=== PATIENT | female | born 1945 | race Caucasian/White ===

== ENCOUNTER 2017-03-02 12:04 | Inpatient (IN) | payer MEDICARE, MEDICAID ==
[2017-03-02] MEDS ORDERED: Ondansetron INJ* 2 MG/ML VIAL IV PRN (15:18)
[2017-03-02] MEDS ORDERED: Dextrose 50% Syringe 50 ML* 25 GM/50 ML SYRINGE IV PUSH PRN (15:18)
[2017-03-02] MEDS ORDERED: Albuterol 2.5 MG/3 ML NEB.SOL* (0.083%) INH PRN (15:30)
[2017-03-02 16:25] LABS: Hematocrit 37 % (35-47); Hemoglobin 11.9 g/dl (12.0-16.0); Mean Corpuscular HGB Conc 32 g/dl (31-36); Mean Corpuscular Hemoglobin 30 pg (27-31); Mean Corpuscular Volume 94 fL (80-97); Mean Platelet Volume 9 um3 (7.4-10.4); Red Blood Count 3.91 10^6/ul (4.0-5.4); Red Cell Distribution Width 15 % (10.5-15); White Blood Count 11.1 10^3/ul (3.5-10.8)
[2017-03-02] MEDS ORDERED: Vancomycin(*) 1,500 MG in NS 0.9% 250 ML* 250 ML IVPB ONE (16:30)
[2017-03-02 16:49] LABS: Albumin 3.5 g/dL (3.2-5.2); C Reactive Protein 7.37 mg/L (< 5.00); Calcium 9.7 mg/dL (8.6-10.3); EGFR Non-African American 43.6 (>60); Globulin 2.9 g/dL (2-4); Potassium 4.9 mmol/L (3.5-5.0); Total Bilirubin 0.3 mg/dL (0.2-1.0); Total Protein 6.4 g/dL (6.4-8.9)
[2017-03-02 17:36] LABS: Erythrocyte Sed Rate 67 mm/Hr (0-40)
[2017-03-02] MEDS: Insulin LISPRO* 1 UNITS UNIT SUBCUT SCH (17:55)
[2017-03-02] MEDS: NS 0.9% 1000 ML* 1,000 ML IV SCH (17:55)
[2017-03-02] MEDS: Metoprolol Tartrate TAB* 25 MG PO SCH (20:07)
[2017-03-02] MEDS: Flecainide TAB* 100 MG PO SCH (20:08)
--- NOTE | 2017-03-02 22:37 | CONS ---
CONSULTATION REPORT: DATE OF CONSULTATION: 03/02/17 HISTORY OF PRESENT ILLNESS: Lillie is a 71-year-old woman who had previous internal fixation of a right bimalleolar ankle fracture. She is densely neuropathic with diabetes and multiple other medical issues including COPD. She has been minimally ambulatory, but had failure of the fixation early on with some changes radiographically, which suggested Charcot. Since then she has been in a [employer] walker for protection of this diabetic neuroarthropathic joint. Over the winter, she had inability to seek any medical care. It is not totally clear why this is true, but the son who is her primary caregiver states that there was too much snow at the house, but anyway a week ago, she showed up at my office with quite significant cellulitis globally at the right foot and ankle and swelling, which was moderate to severe. We gave her some Keflex for a week and recommended Edward wraps and elevation and she returns today with much worse cellulitis and skin cracking and edematous changes and almost pachydermal changes. Her radiographs today show continued Charcot changes at the ankle with loosening of the hardware. The patient may possibly have an infection of the hardware deep, but I would treat her in the short term with IV antibiotics for this quite significant cellulitis. For this reason, I have recommended that she go to the hospital where she will be admitted to the hospitalist service to be followed by Orthopedics as a consultation. MEDICATIONS: Include: 1. Pravastatin 40 mg at night. 2. Glimepiride 4 mg per day. 3. Prednisone 20 mg a day. 4. Potassium chloride 20 mEq every day. 5. Metoprolol 25 mg twice a day. 6. Furosemide 20 mg twice a day. 7. Flecainide acetate 50 mg twice a day. 8. Tramadol for pain. 9. Benadryl 25 mg every 6 hours as needed. 10. Loratadine 10 mg per day. 11. Nebulizer. ALLERGIES: She claims allergies to BACITRACIN and IODINE. REVIEW OF SYSTEMS: She has had significant COPD and dense diabetic neuropathy. PHYSICAL EXAM: Lillie, on examination has partial dentition. The oropharynx is clear. Neck is supple. Her chest exam actually shows clear lung sounds without wheezing or rales noted. Her cardiac exam also shows a regular rate, not particularly prominent heart sounds, but no extra sounds noted. Her abdomen is distended, soft, nontender. Her extremity exam shows her to have a massively edematous foot and ankle with severe cellulitis up to the mid calf. She is having cracking now of the skin at the edema and some early pachydermal changes. Her foot is warm, but I am not able to palpate pulses because of the severe edema. The skin is intact except for some cracking along the [place] and some between the toes where she has fungal changes. DIAGNOSTIC STUDIES/LAB DATA: Her radiographs today AP, lateral and oblique view shows dissolution of the bone architecture at the ankle with loosening of medial and lateral hardware consistent with Charcot changes possibly with some osteomyelitis. IMPRESSION: The patient will be admitted to the hospitalist service at [facility] for IV antibiotics and elevation, ID consult and Orthopedics to follow. [id number]/CPS #: [id number] JOSE ANGEL
--- NOTE | 2017-03-02 23:27 | HP ---
HISTORY AND PHYSICAL: DATE OF ADMISSION: 03/02/17 PRIMARY CARE PROVIDER: Dr. Yuliya Pike. ATTENDING PHYSICIAN WHILE IN THE HOSPITAL: Dr. Sulema Ortega *(report dictated by Ck Zuleta NP). CHIEF COMPLAINT: 1. Right lower extremity wound. 2. Right lower extremity erythema. HISTORY OF PRESENT ILLNESS: Ms. Melton is a 71-year-old female patient who underwent a right ankle ORIF in December of last year secondary to a fracture. She comes in today. She states that about a week ago, she noticed that she was having swelling to that leg initially. She was wearing a walking boot. She started noticing that the boot was rubbing and this developed into an ulceration and there was erythema as well. She went and saw Dr. Rivas who had done the original surgery. He was concerned for a possible cellulitis on the right foot and placed the patient on antibiotics. She has been on antibiotics in the form of Keflex for about a week, and despite this, she has not had any improvement of her symptoms. She went back there for a followup and he felt that she would need IV antibiotics, so she was sent to the hospital. The patient says that, to her knowledge, she has not noticed any purulent discharge. She did note that she had what appeared to be blisters around that leg, which have subsequently opened up and she did not notice what they were draining when they did open up. She says that now they are just draining a clear discharge. She denied having any fevers or chills. She says to her knowledge the redness really has not changed that much. She feels the leg is definitely more swollen, and at times, she does have some pain to the lower extremity. She denied having any joint pain or any ankle pain. She states that she does have erythema to the left leg, but this is more of a chronic in nature. She denied any chills, fevers. Says she has been taking her medications as prescribed and has not made any changes with the exception of the Keflex. Because of the failure of outpatient antibiotics, she was sent to the hospital. PAST MEDICAL HISTORY: Significant for: 1. Diabetes. 2. CHF. 3. Giant cell arteritis. 4. History of DVT and PE, status post IVC filter as she is allergic to BLOOD THINNERS. 5. AFib. 6. CKD. 7. COPD. 8. Hemorrhagic shock in the past from BLOOD THINNERS. 9. Hyperlipidemia. 10. TIA. REVIEW OF SYSTEMS: There is no documented fever. She denied any significant weight change. There was no double vision. There is no ear discharge. She denies having any rhinorrhea. No sore throat. No thyroid enlargement. She denies having any worsening shortness of breath. No chest pain. No orthopnea. No nocturnal dyspnea. There is no abdominal pain. There was no nausea. There was no vomiting. There was no dysuria. There was no frequency. She denied having any abdominal discomfort or any diarrhea or vomiting. She denies any loss of consciousness. Again, there are skin ulcerations per my HPI. Review of 14 systems completed, all others negative. PHYSICAL EXAMINATION GENERAL: At this time, Ms. Melton is a 71-year-old female patient. She is sitting in the hospital bed. Does not appear to be in any acute distress. VITAL SIGNS: Blood pressure 131/79 with a pulse of 99, respirations 20, O2 sat 93%, and temperature 98.7. HEENT: Head is atraumatic and normocephalic. Eyes: EOMs intact. Sclerae anicteric. Throat: Oral mucosa appears to be moist. No oropharyngeal erythema. NECK: Supple. LUNGS: Clear throughout. There are no wheezes, rales, or rhonchi. HEART: Sounds S1, S2. Irregularly irregular rate. No murmurs, rubs, or gallops. ABDOMEN: Soft, it was flat, nontender. Bowel sounds present. EXTREMITIES: Pulses were 2+ throughout. She had +3 pitting edema bilaterally. She had 5/5 strength. NEUROLOGIC: She is awake, alert, oriented x3. Tongue midline. City [employer] are equal. No gross focal deficits. SKIN: Intact. She has erythema noted from the right ankle extending up to the mid . Just below the knee, there are ulcerations around the right lower extremity that appears to have a serous-type discharge. She does have erythema noted to the left lower extremity as well. This appears to be venous stasis probably. There is no warmth here and no obvious open areas at the site. Otherwise, the skin was intact. Old medical records were reviewed. ASSESSMENT AND PLAN: Ms. Melton is a 71-year-old female patient coming to the hospital today after worsening erythema and ulcerations to the right lower extremity, failing outpatient therapy for cellulitis. She will be admitted under inpatient status for: 1. Cellulitis: At this point, she is probably going to require a couple of days of IV antibiotics. I do not have any labs back yet as they are all pending , but I do think we need to get a CBC, CMP, ESR, CRP, procalcitonin, and blood cultures. I will put her on vancomycin. We will give her 1 L of fluids for now. Hold tonight's dose of Lasix and continue to follow. 2. Diabetes: She will be on a lispro sliding scale. 3. History of congestive heart failure: Does not appear to be in any acute failure. She actually appears to be a little hypovolemic. I will give her a liter of fluid slowly and we will restart her Lasix in the morning. 4. Giant cell arteritis: Continue prednisone. 5. History of DVT and PE: She has an IVC filter in place. I did order SCDs. 6. Atrial fibrillation: She appears to be rate controlled. Heart rate is around 99. We will continue her flecainide and her medications as prescribed and we will follow. 7. Chronic kidney disease: Again, her creatinine is now pending. We will follow this up. 8. Chronic obstructive pulmonary disease: I have ordered p.r.n. albuterol. 9. Hyperlipidemia: Continue meds as prescribed. 10. Transient ischemic attack: Continue secondary prevention. 11. Code status: She wished to be a full code. 12. Fluids, electrolytes, and nutrition: She will be on a consistent carbohydrate diet. TIME SPENT: Time spent on the admission was approximately 60 minutes; greater than half the time was spent [id number] with the patient obtaining my history and physical, other half the time spent going over the plan of care with the patient and implementing plan of care. I did discuss the plan of care with my attending, Dr. Otrega; she is in agreement. CK ZULETA NP CC: Dr. Yuliya Pike* [id number]/CPS #: [id number] [facility]ENTERBeck
[2017-03-03] MEDS: NS 0.9% 1000 ML* 1,000 ML IV SCH ×2 (05:22→18:50)
[2017-03-03 06:25] LABS: Hematocrit 34 % (35-47); Mean Corpuscular HGB Conc 33 g/dl (31-36); Mean Corpuscular Hemoglobin 31 pg (27-31); Mean Corpuscular Volume 94 fL (80-97); Mean Platelet Volume 8 um3 (7.4-10.4); Red Cell Distribution Width 15 % (10.5-15); White Blood Count 12.6 10^3/ul (3.5-10.8)
[2017-03-03 06:45] LABS: BUN/Creatinine Ratio 24.8 (8-20); EGFR African American 63.8 (>60); EGFR Non-African American 49.6 (>60); Potassium 4.1 mmol/L (3.5-5.0)
[2017-03-03] MEDS: Atorvastatin* 10 MG TAB PO SCH (08:12)
[2017-03-03] MEDS: Metoprolol Tartrate TAB* 25 MG PO SCH ×2 (08:13→21:12)
[2017-03-03] MEDS: Flecainide TAB* 100 MG PO SCH ×2 (08:13→21:11)
[2017-03-03] MEDS: Furosemide TAB* 20 MG PO SCH ×2 (08:13→21:12)
[2017-03-03] MEDS: Potassium Chlor TAB* 20 MEQ TAB.ER PO SCH (08:13)
[2017-03-03] MEDS: Omeprazole CAP* 20 MG PO SCH (08:13)
[2017-03-03] MEDS: Aspirin Low Dose CHEW TAB* 81 MG PO SCH (08:13)
[2017-03-03] MEDS: predniSONE TAB* 20 MG PO SCH (08:13)
[2017-03-03] MEDS: Insulin LISPRO* 1 UNITS UNIT SUBCUT SCH ×3 (08:16→17:45)
[2017-03-03] MEDS ORDERED: Vancomycin per Pharmacy* NOTE FOLLOW UP PRN (08:55)
[2017-03-03] MEDS: Vancomycin(*) 1,000 MG in NS 0.9% 250 ML* 250 ML IVPB SCH ×2 (09:20→21:12)
--- NOTE | 2017-03-03 15:38 | PN ---
Subjective Date of Service: 03/03/17 Interval History: This is a 71 yo female with a h/o NIDDM, CHF, giant cell arteritis, h/o DVT/PE, afib, CKD, COPD, HLD and prior TIA who was referred to the hospital by orthopedic surgeon, Dr Rivas, with concern for cellulitis. Patient had a bimalleolar fracture 12/2015 with ORIF by Rob. Fixation initially failed and patient has been placed in a boot to protect the joint from further deterioration. Patient has been lost to follow up over the winter months and has spent most of that time in a wheelchair, both morning and night. She was seen by Dr Rivas last week where he noted ulcerations had formed from friction from her boot with an associated cellulitis. She was started on Keflex at that time, with no improvement noted after 1 week, she was referred to the hospital for admission. She was empirically started on vancomycin. Patient reports improved pain in the RLE. She believes the edema and erythema have improved slightly. She denies any additional complaints. Patient's family which includes her son and [id number], with who she lives, are extremely anxious about her hospital admission. Objective Active Medications: Acetaminophen (Tylenol Tab*) 650 mg PO Q4H PRN PRN Reason: FEVER/PAIN Albuterol (Ventolin 2.5 Mg/3 Ml Neb.Maranda*) 2.5 mg INH Q2H PRN PRN Reason: SOB/WHEEZING Aspirin (Aspirin Low Dose Tab*) 81 mg PO DAILY [facility] Last Admin: 03/03/17 08:13 Dose: 81 mg Atorvastatin Calcium (Lipitor*) 10 mg PO DAILY [facility] PRN Reason: Protocol Last Admin: 03/03/17 08:12 Dose: 10 mg Dextrose (D50w Syringe 50 Ml*) 12.5 gm IV PUSH .FOR FS < 60 - SS PRN PRN Reason: FS < 60 Flecainide Acetate (Tambocor Tab*) 50 mg PO BID [facility] Last Admin: 03/03/17 08:13 Dose: 50 mg Furosemide (Lasix Tab*) 20 mg PO BID [facility] Last Admin: 03/03/17 08:13 Dose: 20 mg Sodium Chloride (Ns 0.9% 1000 Ml*) 1,000 mls @ 100 mls/hr IV PER RATE [facility] Last Admin: 03/03/17 05:22 Dose: 100 mls/hr Vancomycin HCl 1,000 mg/ (Sodium Chloride) 250 mls @ 166.667 mls/hr IVPB Q12H [facility] Last Admin: 03/03/17 09:20 Dose: 166.667 mls/hr Insulin Human Lispro (Humalog*) 0 units SUBCUT AC [facility] PRN Reason: Protocol Last Admin: 03/03/17 13:23 Dose: 9 units Metoprolol Tartrate (Lopressor Tab*) 25 mg PO BID [facility] Last Admin: 03/03/17 08:13 Dose: 25 mg Omeprazole (Prilosec Cap*) 20 mg PO DAILY [facility] Last Admin: 03/03/17 08:13 Dose: 20 mg Ondansetron HCl (Zofran Inj*) 4 mg IV Q6H PRN PRN Reason: NAUSEA Pharmacy Consult (Vancomycin Per Pharmacy*) 1 note FOLLOW UP . PRN PRN Reason: PER PROTOCOL Pharmacy Profile Note (Vancomycin Trough Check) 1 note FOLLOW UP ONCE ONE Stop: 03/04/17 08:31 Potassium Chloride (Klor Con Er Tab*) 20 meq PO DAILY [facility] Last Admin: 03/03/17 08:13 Dose: 20 meq Prednisone (Deltasone Tab*) 20 mg PO DAILY [facility] Last Admin: 03/03/17 08:13 Dose: 20 mg Vital Signs: Temp Pulse Resp BP Pulse Ox 98.5 F 82 16 105/61 92 03/03/17 11:27 03/03/17 11:27 03/03/17 11:27 03/03/17 11:27 03/03/17 13:41 Appearance: Well appearing, elderly, obese female in NAD. Accompanied by family Neck: NL Appearance and Movements; NL JVP Respiratory: Symmetrical Chest Expansion and Respiratory Effort, Clear to Auscultation Cardiovascular: NL Sounds; No Murmurs; No JVD, RRR Abdominal: NL Sounds; No Tenderness; No Distention Extremities: - - bilateral LE edema, L>R Skin: - - shallow ulcerations x 3 over RLE with faint surrounding erythema and scant drainage Neurological: Alert and Oriented x 3 Result Diagrams: 03/03/17 05:54 03/03/17 05:54 Assess/Plan/Problems-Billing Assessment: This is a 71 yo female with a h/o NIDDM, CHF, giant cell arteritis, h/o DVT/PE, afib, CKD, COPD, HLD and prior TIA who was referred to the hospital by orthopedic surgeon, Dr Rivas, with concern for cellulitis. - Patient Problems (1) Cellulitis Comment: RLE over prior surgical site Blood cultures are pending Cont vancomycin empirically (2) S/P ORIF (open reduction internal fixation) fracture Comment: Dr Rivas 12/2015 XRs reveal hardware failure and Charcot joint changes Concern for possible osteoarthritis with degenerative changes seen on XR with overlying cellulitis, discussed imaging modality of choice, Dr Rivas suggested a non-contrasted CT of the RLE which has been ordered (3) CKD (chronic kidney disease), stage III Comment: Stable, near baseline (4) HLD (hyperlipidemia) (5) H/O deep venous thrombosis Comment: Patient reports allergy to "blood thinners", without additional information (6) Atrial fibrillation Comment: Remains in NSR with flecanide. Not a candidate for anticoagulation (7) Congestive heart failure Comment: Without acute exacerbation (8) Giant cell arteritis Comment: Dependent on 20mg daily She was not stress dosed at admission, no associated sepsis or other hemodynamic instability (9) Type 2 diabetes mellitus Comment: HgbA1c 7.9% Cont SS Humalog Oral agents held Status and Disposition: Patient requires continued hospital stay. Pending CT to help to determine whether osteomyelitis is present which will effect disposition
--- NOTE | 2017-03-03 21:36 | RAD ---
Indication: Question hardware failure versus osteomyelitis at the RIGHT ankle. 3 open wound at the RIGHT ankle. Cellulitis. Comparison: March 02, 2017 radiographs and March 23, 2016 CT. Technique: Noncontrast CT from the mid diaphyses of the tibia and fibula through the ankle and midfoot. Multiplanar reformation. Report: Extensive soft tissue swelling most marked over the medial and lateral aspects of the ankle. Soft tissue ulcer at the medial margin with gas containing tract visualized extending up to 0.7 cm deep to the skin surface. Contiguous soft tissue density tract extends from this level to the ankle joint 3.7 cm deep to the skin surface. While assessment is limited without IV contrast no compelling loculated soft tissue plane abscess collection is visualized. Osseous detail is limited due to artifact from the distal tibia and fibular cortical plates and multiple fixation screws including screws traversing the talocrural joint and distal syndesmosis. There is evidence for mild backing out of one of the screws at the distal tibia and one of the screws at the distal fibula at the level of the ankle mortise reference axial images 102-103 of 153. No definitive focal osteolysis evident. Diffuse disuse osteoporosis. No fracture evident. Diffuse skeletal muscle atrophy. IMPRESSION: 1. Soft tissue edema and medial soft tissue ulcer without compelling evidence for a loculated abscess collection however assessment is limited without IV contrast due to artifact from the internal fixation hardware. 2. No compelling CT evidence for osteomyelitis. If there is persistent clinical concern a three-phase bone scan would be suggested. 3. There is evidence for mild backing out of one of the screws at the distal tibia and one of the screws at the distal fibula at the level of the ankle mortise. This is a new finding compared with the March 23, 2016 exam.
--- NOTE | 2017-03-03 23:03 | CONS ---
PROGRESS NOTE/CONSULTATION: DATE OF CONSULT: 03/03/17 HISTORY OF PRESENT ILLNESS: Ms. Melton has been in the hospital now for almost 24 hours. She has been finally able to elevate her leg. It appears that she has been, for a month prior to admission, staying in a wheelchair at night, so in other words, the leg dependent 100% of the time. Her edema has improved slightly, although she is still significantly erythematous below mid calf. She is on the IV antibiotics currently, and I am interested to see how her cellulitis and edema respond over the next [address] scan will be ordered of the right ankle hardware. This is probably the best study to determine whether there is any significant osteolysis of the bone. I do not think the patient is going to be a great candidate to go home since the home situation is quite desperate in terms of her being able to elevate the leg. For now, we will continue IV antibiotics with a.m. elevation. [id number]/[facility] #: [id number] JOSE ANGEL
[2017-03-04 05:45] LABS: Vancomycin Trough 9.6 mcg/mL
[2017-03-04 07:27] LABS: Hematocrit 36 % (35-47); Hemoglobin 11.6 g/dl (12.0-16.0); Mean Corpuscular HGB Conc 32 g/dl (31-36); Mean Platelet Volume 9 um3 (7.4-10.4); Red Blood Count 3.84 10^6/ul (4.0-5.4); White Blood Count 12.7 10^3/ul (3.5-10.8)
[2017-03-04 07:42] LABS: Mean Corpuscular Hemoglobin 30 pg (27-31); Mean Corpuscular Volume 94 fL (80-97); Red Cell Distribution Width 15 % (10.5-15)
[2017-03-04] MEDS ORDERED: Vancomycin Trough Check NOTE FOLLOW UP ONE (08:30)
[2017-03-04] MEDS: Insulin LISPRO* 1 UNITS UNIT SUBCUT SCH ×3 (08:41→17:46)
[2017-03-04 09:10] LABS: BUN/Creatinine Ratio 24.7 (8-20); C Reactive Protein 6.75 mg/L (< 5.00); Calcium 9.2 mg/dL (8.6-10.3); EGFR Non-African American 66.1 (>60); Potassium 4.1 mmol/L (3.5-5.0)
[2017-03-04] MEDS: Furosemide TAB* 20 MG PO SCH ×2 (09:31→20:14)
[2017-03-04] MEDS: Omeprazole CAP* 20 MG PO SCH (09:31)
[2017-03-04] MEDS: predniSONE TAB* 20 MG PO SCH (09:31)
[2017-03-04] MEDS: Vancomycin(*) 1,250 MG in NS 0.9% 250 ML* 250 ML IVPB SCH ×2 (09:31→20:22)
[2017-03-04] MEDS: Potassium Chlor TAB* 20 MEQ TAB.ER PO SCH (09:31)
[2017-03-04] MEDS: Metoprolol Tartrate TAB* 25 MG PO SCH ×2 (09:31→20:14)
[2017-03-04] MEDS: Flecainide TAB* 100 MG PO SCH ×2 (09:32→20:14)
[2017-03-04] MEDS: Aspirin Low Dose CHEW TAB* 81 MG PO SCH (09:32)
[2017-03-04] MEDS: Atorvastatin* 10 MG TAB PO SCH (09:32)
--- NOTE | 2017-03-04 10:02 | PN ---
Progress Note - Progress Note SOAP: Subjective: patient OOB to chair with minimal pain Objective: Vital Signs Temp Pulse Resp BP Pulse Ox 97.2 F 111 18 121/65 93 03/04/17 06:34 03/04/17 08:47 03/04/17 08:47 03/04/17 06:34 03/04/17 08:47 Laboratory Last Values WBC 12.7 10^3/ul (3.5-10.8) H 03/04/17 04:55 RBC 3.84 10^6/ul (4.0-5.4) L 03/04/17 04:55 Hgb 11.6 g/dl (12.0-16.0) L 03/04/17 04:55 Hct 36 % (35-47) 03/04/17 04:55 MCV 94 fL (80-97) 03/04/17 04:55 MCH 30 pg (27-31) 03/04/17 04:55 MCHC 32 g/dl (31-36) 03/04/17 04:55 RDW 15 % (10.5-15) 03/04/17 04:55 Plt Count 222 10^3/ul (150-450) 03/04/17 04:55 MPV 9 um3 (7.4-10.4) 03/04/17 04:55 Neut % (Auto) 58.5 % (38-83) 03/04/17 04:55 Lymph % (Auto) 30.7 % (25-47) 03/04/17 04:55 Benzie % (Auto) 9.2 % (1-9) H 03/04/17 04:55 Eos % (Auto) 1.1 % (0-6) 03/04/17 04:55 Baso % (Auto) 0.5 % (0-2) 03/04/17 04:55 Absolute Neuts (auto) 7.4 10^3/ul (1.5-7.7) 03/04/17 04:55 Absolute Lymphs (auto) 3.9 10^3/ul (1.0-4.8) 03/04/17 04:55 Absolute Monos (auto) 1.2 10^3/ul (0-0.8) H 03/04/17 04:55 Absolute Eos (auto) 0.1 10^3/ul (0-0.6) 03/04/17 04:55 Absolute Basos (auto) 0.1 10^3/ul (0-0.2) 03/04/17 04:55 Absolute Nucleated RBC 0.01 10^3/ul 03/04/17 04:55 Nucleated RBC % 0 03/04/17 04:55 ESR 67 mm/Hr (0-40) H 03/02/17 16:11 Sodium 142 mmol/L (133-145) 03/04/17 04:56 Potassium 4.1 mmol/L (3.5-5.0) 03/04/17 04:56 Chloride 96 mmol/L (101-111) L 03/04/17 04:56 Carbon Dioxide 38 mmol/L (22-32) H 03/04/17 04:56 Anion Gap 8 mmol/L (2-11) 03/04/17 04:56 BUN 21 mg/dL (6-24) 03/04/17 04:56 Creatinine 0.85 mg/dL (0.51-0.95) 03/04/17 04:56 Est GFR ( Amer) 85.0 (>60) 03/04/17 04:56 Est GFR (Non-Af Amer) 66.1 (>60) 03/04/17 04:56 BUN/Creatinine Ratio 24.7 (8-20) H 03/04/17 04:56 Glucose 111 mg/dL (70-100) H 03/04/17 04:56 POC Glucose (mg/dL) 85 mg/dL (74-106) 03/04/17 08:04 Hemoglobin A1c 7.9 % (Less than 6.0) H 03/03/17 05:54 Calcium 9.2 mg/dL (8.6-10.3) 03/04/17 04:56 Total Bilirubin 0.30 mg/dL (0.2-1.0) 03/02/17 16:11 AST 17 U/L (13-39) 03/02/17 16:11 ALT 14 U/L (7-52) 03/02/17 16:11 Alkaline Phosphatase 72 U/L (34-104) 03/02/17 16:11 C-Reactive Protein 6.75 mg/L (< 5.00) H 04/07/17 04:56 Total Protein 6.4 g/dL (6.4-8.9) 03/02/17 16:11 Albumin 3.5 g/dL (3.2-5.2) 03/02/17 16:11 Globulin 2.9 g/dL (2-4) 03/02/17 16:11 Albumin/Globulin Ratio 1.2 (1-3) 03/02/17 16:11 Procalcitonin < 0.1 ng/mL (<0.6) 03/02/17 16:11 Vancomycin Trough 9.6 mcg/mL 03/04/17 04:56 PE: able to ankle dorsiflex/plantar flex and moves toes well, intact sensation, 2+ DP pulses, pitting edema right ankle and foot with erythema Assessment: 71 yo with infection of hardware from ORIF right ankle Plan: 1) Continue IV Abx through the weekend 2) Elevation daily 3) ID following
--- NOTE | 2017-03-04 10:38 | PN ---
Subjective Date of Service: 03/04/17 Interval History: Patient offers no new complaints this am. She believe her leg looks better. Afebrile overnight. Objective Active Medications: Acetaminophen (Tylenol Tab*) 650 mg PO Q4H PRN PRN Reason: FEVER/PAIN Albuterol (Ventolin 2.5 Mg/3 Ml Neb.Maranda*) 2.5 mg INH Q2H PRN PRN Reason: SOB/WHEEZING Aspirin (Aspirin Low Dose Tab*) 81 mg PO DAILY [facility] Last Admin: 03/04/17 09:32 Dose: 81 mg Atorvastatin Calcium (Lipitor*) 10 mg PO DAILY [facility] PRN Reason: Protocol Last Admin: 03/04/17 09:32 Dose: 10 mg Dextrose (D50w Syringe 50 Ml*) 12.5 gm IV PUSH .FOR FS < 60 - SS PRN PRN Reason: FS < 60 Flecainide Acetate (Tambocor Tab*) 50 mg PO BID [facility] Last Admin: 03/04/17 09:32 Dose: 50 mg Furosemide (Lasix Tab*) 20 mg PO BID [facility] Last Admin: 03/04/17 09:31 Dose: 20 mg Sodium Chloride (Ns 0.9% 1000 Ml*) 1,000 mls @ 100 mls/hr IV PER RATE [facility] Last Admin: 03/03/17 18:50 Dose: 100 mls/hr Vancomycin HCl 1,250 mg/ (Sodium Chloride) 250 mls @ 166.667 mls/hr IVPB Q12HR [facility] Last Admin: 03/04/17 09:31 Dose: 166.667 mls/hr Insulin Human Lispro (Humalog*) 0 units SUBCUT AC [facility] PRN Reason: Protocol Last Admin: 03/04/17 08:41 Dose: Not Given Metoprolol Tartrate (Lopressor Tab*) 25 mg PO BID [facility] Last Admin: 03/04/17 09:31 Dose: 25 mg Omeprazole (Prilosec Cap*) 20 mg PO DAILY [facility] Last Admin: 03/04/17 09:31 Dose: 20 mg Ondansetron HCl (Zofran Inj*) 4 mg IV Q6H PRN PRN Reason: NAUSEA Pharmacy Consult (Vancomycin Per Pharmacy*) 1 note FOLLOW UP . PRN PRN Reason: PER PROTOCOL Pharmacy Profile Note (Vancomycin Trough Check) 1 note FOLLOW UP ONCE ONE Stop: 03/06/17 08:31 Potassium Chloride (Klor Con Er Tab*) 20 meq PO DAILY [facility] Last Admin: 03/04/17 09:31 Dose: 20 meq Prednisone (Deltasone Tab*) 20 mg PO DAILY [facility] Last Admin: 03/04/17 09:31 Dose: 20 mg Vital Signs: Temp Pulse Resp BP Pulse Ox 97.2 F 111 18 121/65 93 03/04/17 06:34 03/04/17 08:47 03/04/17 08:47 03/04/17 06:34 03/04/17 08:47 Oxygen Devices in Use Now: Nasal Cannula Appearance: Well appearing elderly, obese female in NAD Neck: NL Appearance and Movements; NL JVP Respiratory: Symmetrical Chest Expansion and Respiratory Effort, Clear to Auscultation Cardiovascular: NL Sounds; No Murmurs; No JVD, RRR Extremities: - - improved LE edema Skin: - - improved erythema over RLE Neurological: Alert and Oriented x 3 Result Diagrams: 03/04/17 04:55 03/04/17 04:56 Microbiology and Other Data: Microbiology 03/02/17 16:11 Aerobic Blood Culture - Preliminary Blood Venous No Growth Day 1 Anaerobic Blood Culture - Preliminary No Growth Day 1 03/02/17 16:18 Aerobic Blood Culture - Preliminary Blood Venous No Growth Day 1 Anaerobic Blood Culture - Preliminary No Growth Day 1 Diagnostic Imaging: CT RLE - no evidence of osteo or deep abscess, hardware loosening at distal tibia Assess/Plan/Problems-Billing Assessment: This is a 71 yo female with a h/o NIDDM, CHF, giant cell arteritis, h/o DVT/PE, afib, CKD, COPD, HLD and prior TIA who was referred to the hospital by orthopedic surgeon, Dr Rivas, with concern for cellulitis. - Patient Problems (1) Cellulitis Comment: RLE over prior surgical site with 3 shallow ulcerations Wound care consult completed who agrees with dry dressings and compression with elevation of LE Blood cultures are negative at 24 hours Cont vancomycin empirically Note clinical improvement CT is not suggestive of osteo or deep abscess, will request input from ID on antibiotic management (2) S/P ORIF (open reduction internal fixation) fracture Comment: Dr Rivas 12/2015 XRs reveal hardware failure and Charcot joint changes Original concern for possible osteomyelitis with degenerative changes seen on XR with overlying cellulitis CT of the region is not suggestive of osteomyelitis Dr Rivas would like to remove her hardware at some point in the future, but would like her to be treated with a full course of antibiotics prior to surgery (3) CKD (chronic kidney disease), stage III Comment: Stable, near baseline (4) HLD (hyperlipidemia) (5) H/O deep venous thrombosis Comment: Patient reports allergy to "blood thinners", without additional information (6) Atrial fibrillation Comment: Remains in NSR with flecanide. Not a candidate for anticoagulation (7) Congestive heart failure Comment: Without acute exacerbation (8) Giant cell arteritis Comment: Dependent on 20mg daily She was not stress dosed at admission, no associated sepsis or other hemodynamic instability (9) Type 2 diabetes mellitus Comment: HgbA1c 7.9% Cont SS Humalog Oral agents held Status and Disposition: Patient requires continued hospital stay. Dr Rivas would like to delay any surgical intervention for several weeks. Will discuss antibiotics with ID and possibility of ADRIAN with family. Requested social work involvement to help with getting a recliner at home.
--- NOTE | 2017-03-04 16:58 | CONS ---
CONSULTATION REPORT: DATE OF CONSULT: 03/04/17 REQUESTING PROVIDER: DONNELL Liu CONSULTING SERVICE: Infectious Disease. REASON FOR CONSULT: Right leg cellulitis, wound infection. IMPRESSION: 1. Right lower extremity cellulitis and upper lower leg wound where a brace had worn into the skin. I suspect that is the focus of infection. Agree that gram- positives are most likely organisms including resistant staphylococcus. She does have fixation hardware in the distal tibia and fibula, CT showed hardware loosening, with a medial ankle ulceration draining serous fluid, that could also be a focus of the infection. Interestingly, the erythema is not directly associated with that ulceration. 2. Status post right tibia and fibula open reduction internal fixation in December 2015. 3. History of right knee arthroplasty, asymptomatic. 4. Giant cell arteritis, on prednisone. 5. Diabetes. RECOMMENDATION: Agree with vancomycin goal trough 10 to 15. We will follow the leg, if it is not improving, we may change the coverage of it. I do think a long-term oral antibiotic therapy is reasonable given the prosthetic knee and ankle fixation hardware and we will discuss with Dr. Rivas. The options include removal of hardware or retaining hardware if unable to be removed, and long-term oral suppressive antibiotic therapy. HISTORY OF PRESENT ILLNESS: This is a 71-year-old woman with a history of right ankle fixation and knee arthroplasty admitted with right leg cellulitis. She was wearing an ankle foot brace that wore into the skin in the lower leg and created an ulceration. She was seen by Dr. Rivas, who started her on Keflex. Apparently, it was not improving very much where there was erythema distal to that ulceration though not quite down to the ankle. When he saw her most recently, recommended that she come into the ER which she did on the . White blood cell count was 11 on admission, CRP was 7. She was started on vancomycin and blood cultures sent are negative 24 hours. She has had no fevers here, she has had no chills, sweats, or anorexia. She had a CT of the right leg that showed soft tissue edema, medial soft tissue ulcer without evidence for abscess. No osteomyelitis by CT. She denies any leg pain. She thinks the redness is fading a little bit since she has been here, is keeping her leg elevated more than she was at home. PAST MEDICAL HISTORY: 1. History of venous thromboembolic disease and Darline filter placement. 2. Diabetes. 3. Congestive heart failure. 4. Giant cell arteritis. 5. Atrial fibrillation. 6. Chronic kidney disease. 7. COPD, on supplemental oxygen. 8. Hyperlipidemia. 9. Transient ischemic attack. MEDICATIONS: 1. Tylenol. 2. Aspirin. 3. Lipitor. 4. Flecainide. 5. Furosemide. 6. Metoprolol. 7. Vancomycin 1250 mg every 12 hours. 8. Prednisone. ALLERGIES: BACITRACIN caused an unknown reaction, ARGATROBAN. FAMILY HISTORY: No recurrent infections. SOCIAL HISTORY: She lives in [place] with her son and a variety of other people. She grew up in [place], [place]. She is retired, nonsmoker. REVIEW OF SYSTEMS: Full review of systems was negative except as noted above. PHYSICAL EXAM: Vital Signs: Temperature 36, heart rate 100, respiratory rate 18, blood pressure 93% on 3 L. General: She is awake, not in distress. Neurologic: Alert and oriented x3. Decreased sensation to light touch in the feet bilaterally. HEENT: There is no conjunctival hemorrhage. Oropharynx without lesions. Neck is supple without nuchal rigidity. Lymph Nodes: There is no cervical, supraclavicular, inguinal, axillary, or epitrochlear lymphadenopathy. Heart: Regular rate and rhythm without murmurs, rubs, or gallops. Lungs are clear to auscultation bilaterally. Abdomen: Soft, nontender, and nondistended. Skin: There is no rash or splinter hemorrhages. Musculoskeletal: There is no spine tenderness to palpation. Right knee, there is no effusion. Bilateral legs, there is lymphedema and in the right lower leg , there is a band of blanching erythema with a more proximal superficial ulceration and just proximal to the right medial malleolus, there is an indentation of the skin with some serous fluid leaking out. LABORATORY DATA: CRP 6. White blood cell count 12, hemoglobin 11, platelets 222. Creatinine is 0.8. Please see impressions and recommendations as outlined above. Thanks for asking me to see Ms. Melton in consultation. [id number]/CPS #: [id number] MTDD
[2017-03-05] MEDS: Insulin LISPRO* 1 UNITS UNIT SUBCUT SCH ×3 (08:07→17:40)
[2017-03-05] MEDS: Metoprolol Tartrate TAB* 25 MG PO SCH ×2 (09:00→20:38)
[2017-03-05] MEDS: Potassium Chlor TAB* 20 MEQ TAB.ER PO SCH (09:00)
[2017-03-05] MEDS: predniSONE TAB* 20 MG PO SCH (09:01)
[2017-03-05] MEDS: Vancomycin(*) 1,250 MG in NS 0.9% 250 ML* 250 ML IVPB SCH ×2 (09:01→20:34)
[2017-03-05] MEDS: Omeprazole CAP* 20 MG PO SCH (09:01)
[2017-03-05] MEDS: Flecainide TAB* 100 MG PO SCH ×2 (09:01→20:39)
[2017-03-05] MEDS: Furosemide TAB* 20 MG PO SCH ×2 (09:01→20:38)
[2017-03-05] MEDS: Atorvastatin* 10 MG TAB PO SCH (09:01)
[2017-03-05] MEDS: Aspirin Low Dose CHEW TAB* 81 MG PO SCH (09:01)
--- NOTE | 2017-03-05 10:17 | PN ---
Subjective Date of Service: 03/05/17 Interval History: Patient offers no new complaints today. She is keeping her legs elevated in a recliner the majority of the day. She believes her leg is improving. Denies cough or SOB. No abdominal pain nausea or vomiting. Objective Active Medications: Acetaminophen (Tylenol Tab*) 650 mg PO Q4H PRN PRN Reason: FEVER/PAIN Albuterol (Ventolin 2.5 Mg/3 Ml Neb.Maranda*) 2.5 mg INH Q2H PRN PRN Reason: SOB/WHEEZING Aspirin (Aspirin Low Dose Tab*) 81 mg PO DAILY [facility] Last Admin: 03/05/17 09:01 Dose: 81 mg Atorvastatin Calcium (Lipitor*) 10 mg PO DAILY [facility] PRN Reason: Protocol Last Admin: 03/05/17 09:01 Dose: 10 mg Dextrose (D50w Syringe 50 Ml*) 12.5 gm IV PUSH .FOR FS < 60 - SS PRN PRN Reason: FS < 60 Flecainide Acetate (Tambocor Tab*) 50 mg PO BID [facility] Last Admin: 03/05/17 09:01 Dose: 50 mg Furosemide (Lasix Tab*) 20 mg PO BID [facility] Last Admin: 03/05/17 09:01 Dose: 20 mg Sodium Chloride (Ns 0.9% 1000 Ml*) 1,000 mls @ 100 mls/hr IV PER RATE [facility] Last Admin: 03/03/17 18:50 Dose: 100 mls/hr Vancomycin HCl 1,250 mg/ (Sodium Chloride) 250 mls @ 166.667 mls/hr IVPB Q12HR [facility] Last Admin: 03/05/17 09:01 Dose: 166.667 mls/hr Insulin Human Lispro (Humalog*) 0 units SUBCUT AC [facility] PRN Reason: Protocol Last Admin: 03/05/17 08:07 Dose: Not Given Metoprolol Tartrate (Lopressor Tab*) 25 mg PO BID [facility] Last Admin: 03/05/17 09:00 Dose: 25 mg Omeprazole (Prilosec Cap*) 20 mg PO DAILY [facility] Last Admin: 03/05/17 09:01 Dose: 20 mg Ondansetron HCl (Zofran Inj*) 4 mg IV Q6H PRN PRN Reason: NAUSEA Pharmacy Consult (Vancomycin Per Pharmacy*) 1 note FOLLOW UP . PRN PRN Reason: PER PROTOCOL Pharmacy Profile Note (Vancomycin Trough Check) 1 note FOLLOW UP ONCE ONE Stop: 03/06/17 08:31 Potassium Chloride (Klor Con Er Tab*) 20 meq PO DAILY [facility] Last Admin: 03/05/17 09:00 Dose: 20 meq Prednisone (Deltasone Tab*) 20 mg PO DAILY [facility] Last Admin: 03/05/17 09:01 Dose: 20 mg Vital Signs: Temp Pulse Resp BP Pulse Ox 98.3 F 89 16 123/70 100 03/05/17 07:21 03/05/17 07:21 03/05/17 07:21 03/05/17 07:21 03/05/17 07:21 Oxygen Devices in Use Now: Nasal Cannula Appearance: Well appearing, in NAD Respiratory: Symmetrical Chest Expansion and Respiratory Effort, Clear to Auscultation Cardiovascular: NL Sounds; No Murmurs; No JVD, RRR Abdominal: NL Sounds; No Tenderness; No Distention Extremities: - - edema is improving in both legs Skin: - - resolving erythema of the RLE with healing, shallow ulcerations of the proximal lower leg Neurological: Alert and Oriented x 3 Result Diagrams: 03/04/17 04:55 03/04/17 04:56 Microbiology and Other Data: Microbiology 03/02/17 16:11 Aerobic Blood Culture - Preliminary Blood Venous No Growth Day 1 Anaerobic Blood Culture - Preliminary No Growth Day 1 03/02/17 16:18 Aerobic Blood Culture - Preliminary Blood Venous No Growth Day 1 Anaerobic Blood Culture - Preliminary No Growth Day 1 Diagnostic Imaging: CT RLE - no evidence of osteo or deep abscess, hardware loosening at distal tibia Assess/Plan/Problems-Billing Assessment: This is a 71 yo female with a h/o NIDDM, CHF, giant cell arteritis, h/o DVT/PE, afib, CKD, COPD, HLD and prior TIA who was referred to the hospital by orthopedic surgeon, Dr Rivas, with concern for cellulitis. - Patient Problems (1) Cellulitis Comment: RLE over prior surgical site with 3 shallow ulcerations Wound care consult completed who agrees with dry dressings and compression with elevation of LE Blood cultures are negative at 48 hours Cont vancomycin empirically Note clinical improvement CT is not suggestive of osteo or deep abscess Appreciate ID input who suggests continued antibiotic therapy with recommendation for hardware removal or alf suppression therapy if the hardware were to be retained (2) S/P ORIF (open reduction internal fixation) fracture Comment: Dr Rivas 12/2015 XRs reveal hardware failure and Charcot joint changes Original concern for possible osteomyelitis with degenerative changes seen on XR with overlying cellulitis CT of the region is not suggestive of osteomyelitis Dr Rivas would like to remove her hardware at some point in the future, but would like her to be treated with a full course of antibiotics prior to surgery (3) CKD (chronic kidney disease), stage III Comment: Stable, near baseline (4) HLD (hyperlipidemia) (5) H/O deep venous thrombosis Comment: Patient reports allergy to "blood thinners", without additional information (6) Atrial fibrillation Comment: Remains in NSR with flecanide. Not a candidate for anticoagulation (7) Congestive heart failure Comment: Without acute exacerbation (8) Giant cell arteritis Comment: Dependent on 20mg daily She was not stress dosed at admission, no associated sepsis or other hemodynamic instability (9) Type 2 diabetes mellitus Comment: HgbA1c 7.9% Cont SS Humalog Oral agents held Status and Disposition: Plan to continue IV abx at this time. Dr Rivas would like to delay any surgical intervention for several weeks. Social work is involved to help with getting a recliner at home. Will discuss discharge home v. ADRIAN with family again later today.
--- NOTE | 2017-03-05 10:47 | PN ---
Progress Note - Progress Note SOAP: Subjective: [71 y/o female with h/o hardware R ankle, R TKA, with cellulitis R ankle. Patient reports no complaints, VSS overnight. No labs this AM, no vanco per ID. ] Objective: General- Well appearing, AO, NAD, sitting comfortably MSK- b/l ankles dressed with loose CONSTANTIN wrap, R with kerlex. Dressing removed, 2 small ulceration with minimal bloody drainage, one with small scab over anterior, medial vallejo. No purulent drainage noted, no odor. B/L LE edematous , diffuse mild erythema throughout both LE's. ] Laboratory Results - last 24 hr 03/04/17 03/04/17 03/05/17 12:08 16:41 07:59 POC Glucose (mg/dL) 222 H 236 H 114 H Vital Signs Temp 98.3 F 03/05/17 07:21 Pulse 89 03/05/17 07:21 Resp 16 03/05/17 07:21 BP 123/70 03/05/17 07:21 Pulse Ox 100 03/05/17 08:00 Intake & Output 03/04/17 03/05/17 03/05/17 18:59 06:59 18:59 Intake Total 2063 062 1967 Output Total 4200 2000 600 Balance -2265 -1660 400 Weight 236 lb 8 oz Intake: IV Fluids 200 NS (0.9%) 200 IVPB 285 ABX - VANCOMYCIN 285 Oral 5030 239 0608 Output: Urine 4200 2000 600 Other: Estimated Void Medium Date of Last Bowel 03/04/2017 Movement # Bowel Movements 0 # Voids 0 Assessment: [71 y/o female with h/o hardware R ankle, R TKA, with cellulitis R ankle] Plan: - CT- no osteo seen - Continue ABX per ID - Continue dressings as written- increase elevation of legs to higher than heart during hospital stay. - Continue to monitor wounds- no signs of viv infection seen - Discussed with Dr. Rivas- Continue to monitor, if no D/C over weekend NPO on Tuesday night ] Active Medications Generic Name Dose Route Start Last Admin Trade Name Freq PRN Reason Stop Dose Admin Acetaminophen 650 mg 03/02/17 15:18 Tylenol Tab* PO Q4H PRN FEVER/PAIN Albuterol 2.5 mg 03/02/17 15:30 Ventolin 2.5 Mg/3 Ml Neb.Maranda* INH Q2H PRN SOB/WHEEZING Aspirin 81 mg 03/03/17 09:00 03/05/17 09:01 Aspirin Low Dose Tab* PO 81 mg DAILY [facility] Administration Atorvastatin Calcium 10 mg 03/03/17 09:00 03/05/17 09:01 Lipitor* PO 10 mg DAILY [facility] Administration Protocol Dextrose 12.5 gm 03/02/17 15:18 D50w Syringe 50 Ml* IV PUSH .FOR FS < 60 - SS PRN FS < 60 Flecainide Acetate 50 mg 03/02/17 21:00 03/05/17 09:01 Tambocor Tab* PO 50 mg BID [facility] Administration Furosemide 20 mg 03/03/17 09:00 03/05/17 09:01 Lasix Tab* PO 20 mg BID [facility] Administration Sodium Chloride 1,000 mls @ 100 mls/hr 03/02/17 15:30 03/03/17 18:50 Ns 0.9% 1000 Ml* IV 100 mls/hr PER RATE [facility] Administration Vancomycin HCl 1,250 mg/ 250 mls @ 166.667 mls/hr 03/04/17 09:00 03/05/17 09: 01 Sodium Chloride IVPB 166.667 mls/hr Q12HR [facility] Administration Insulin Human Lispro 0 units 03/02/17 16:30 03/05/17 08:07 Humalog* SUBCUT Not Given [facility] Protocol Metoprolol Tartrate 25 mg 03/02/17 21:00 03/05/17 09:00 Lopressor Tab* PO 25 mg BID [facility] Administration Omeprazole 20 mg 03/03/17 09:00 03/05/17 09:01 Prilosec Cap* PO 20 mg DAILY [facility] Administration Ondansetron HCl 4 mg 03/02/17 15:18 Zofran Inj* IV Q6H PRN NAUSEA Pharmacy Consult 1 note 03/03/17 08:55 Vancomycin Per Pharmacy* FOLLOW UP . PRN PER PROTOCOL Pharmacy Profile Note 1 note 03/06/17 08:30 Vancomycin Trough Check FOLLOW UP 03/06/17 08:31 ONCE ONE Potassium Chloride 20 meq 03/03/17 09:00 03/05/17 09:00 Klor Con Er Tab* PO 20 meq DAILY [facility] Administration Prednisone 20 mg 03/03/17 09:00 03/05/17 09:01 Deltasone Tab* PO 20 mg DAILY [facility] Administration
[2017-03-05] MEDS: Acetaminophen TAB* 325 MG PO PRN (20:41)
[2017-03-06] MEDS: Atorvastatin* 10 MG TAB PO SCH (07:47)
[2017-03-06] MEDS: Potassium Chlor TAB* 20 MEQ TAB.ER PO SCH (07:47)
[2017-03-06] MEDS: predniSONE TAB* 20 MG PO SCH (07:47)
[2017-03-06] MEDS: Aspirin Low Dose CHEW TAB* 81 MG PO SCH (07:47)
[2017-03-06] MEDS: Furosemide TAB* 20 MG PO SCH ×2 (07:47→20:25)
[2017-03-06] MEDS: Metoprolol Tartrate TAB* 25 MG PO SCH ×2 (07:47→20:25)
[2017-03-06] MEDS: Acetaminophen TAB* 325 MG PO PRN (07:47)
[2017-03-06] MEDS: Omeprazole CAP* 20 MG PO SCH (07:47)
[2017-03-06] MEDS: Flecainide TAB* 100 MG PO SCH ×2 (07:49→20:24)
[2017-03-06] MEDS: Insulin LISPRO* 1 UNITS UNIT SUBCUT SCH ×3 (07:49→17:19)
[2017-03-06] MEDS ORDERED: Vancomycin Trough Check NOTE FOLLOW UP ONE ×2 (08:30→20:30)
[2017-03-06] MEDS: Vancomycin(*) 1,250 MG in NS 0.9% 250 ML* 250 ML IVPB SCH ×2 (08:33→21:45)
[2017-03-06 09:09] LABS: BUN/Creatinine Ratio 26.7 (8-20); Calcium 9.3 mg/dL (8.6-10.3); EGFR African American 83.9 (>60); EGFR Non-African American 65.2 (>60); Potassium 3.6 mmol/L (3.5-5.0)
--- NOTE | 2017-03-06 11:17 | PN ---
Progress Note - Progress Note SOAP: Subjective: [71 y/o female with h/o hardware R ankle, R TKA, with cellulitis R ankle. Patient c/o dizziness with standing, denies pain, feels legs less red and swollen. ] Objective: [General- Well appearing, NAD, sitting comfortably MSK- dressings removed. two ulcerations, superficial with scabs over anterior vallejo, small crack opening under great toe. no odor, drainage seen. Edema decreased from prior examination, still moderate drainage. Skin mild erythema . ] Vital Signs Temp 98.2 F 03/06/17 07:26 Pulse 91 03/06/17 07:45 Resp 18 03/06/17 07:45 BP 129/55 03/06/17 07:26 Pulse Ox 97 03/06/17 07:46 Intake & Output 03/05/17 03/06/17 03/06/17 18:59 06:59 18:59 Intake Total 1730 0 240 Output Total 1000 2100 Balance 730 -2100 240 Weight 236 lb 12.8 oz Intake: IVPB 250 ABX - VANCOMYCIN 250 Oral 1480 0 240 Output: Urine 1000 2100 Other: Estimated Void Medium # Bowel Movements 0 # Voids 1 Laboratory Results - last 24 hr 03/05/17 03/05/17 03/06/17 11:27 16:37 07:47 Sodium Potassium Chloride Carbon Dioxide Anion Gap BUN Creatinine Est GFR ( Amer) Est GFR (Non-Af Amer) BUN/Creatinine Ratio Glucose POC Glucose (mg/dL) 228 H 195 H 117 H Calcium Vancomycin Trough 03/06/17 03/06/17 08:43 08:43 Sodium 141 Potassium 3.6 Chloride 92 L Carbon Dioxide 44 H* Anion Gap 5 BUN 23 Creatinine 0.86 Est GFR ( Amer) 83.9 Est GFR (Non-Af Amer) 65.2 BUN/Creatinine Ratio 26.7 H Glucose 125 H POC Glucose (mg/dL) Calcium 9.3 Vancomycin Trough 23.8 Assessment: [71 y/o female with h/o hardware R ankle, R TKA, with cellulitis R ankle] Plan:- - D/C to home tomorrow with PO ABX - Follow up with Dr Rivas within 4-6 weeks for re-evaluation, discuss possible hardware removal - Silversulfadine ointment added daily with dressing changes. - Continue hospitalist care.
--- NOTE | 2017-03-06 12:07 | PN ---
Subjective Date of Service: 03/06/17 Interval History: Patient reports that she is feeling well. Denies any acute complaints. Objective Active Medications: Acetaminophen (Tylenol Tab*) 650 mg PO Q4H PRN PRN Reason: FEVER/PAIN Last Admin: 03/06/17 07:47 Dose: 650 mg Albuterol (Ventolin 2.5 Mg/3 Ml Neb.Maranda*) 2.5 mg INH Q2H PRN PRN Reason: SOB/WHEEZING Aspirin (Aspirin Low Dose Tab*) 81 mg PO DAILY [facility] Last Admin: 03/06/17 07:47 Dose: 81 mg Atorvastatin Calcium (Lipitor*) 10 mg PO DAILY [facility] PRN Reason: Protocol Last Admin: 03/06/17 07:47 Dose: 10 mg Dextrose (D50w Syringe 50 Ml*) 12.5 gm IV PUSH .FOR FS < 60 - SS PRN PRN Reason: FS < 60 Flecainide Acetate (Tambocor Tab*) 50 mg PO BID [facility] Last Admin: 03/06/17 07:49 Dose: 50 mg Furosemide (Lasix Tab*) 20 mg PO BID [facility] Last Admin: 03/06/17 07:47 Dose: 20 mg Sodium Chloride (Ns 0.9% 1000 Ml*) 1,000 mls @ 100 mls/hr IV PER RATE [facility] Last Admin: 03/03/17 18:50 Dose: 100 mls/hr Vancomycin HCl 1,250 mg/ (Sodium Chloride) 250 mls @ 166.667 mls/hr IVPB Q12HR [facility] Last Admin: 03/06/17 08:33 Dose: 166.667 mls/hr Insulin Human Lispro (Humalog*) 0 units SUBCUT AC [facility] PRN Reason: Protocol Last Admin: 03/06/17 07:49 Dose: Not Given Metoprolol Tartrate (Lopressor Tab*) 25 mg PO BID [facility] Last Admin: 03/06/17 07:47 Dose: 25 mg Omeprazole (Prilosec Cap*) 20 mg PO DAILY [facility] Last Admin: 03/06/17 07:47 Dose: 20 mg Ondansetron HCl (Zofran Inj*) 4 mg IV Q6H PRN PRN Reason: NAUSEA Pharmacy Consult (Vancomycin Per Pharmacy*) 1 note FOLLOW UP . PRN PRN Reason: PER PROTOCOL Pharmacy Profile Note (Vancomycin Trough Check) 1 note FOLLOW UP 2030 ONE Stop: 03/06/17 20:31 Potassium Chloride (Klor Con Er Tab*) 20 meq PO DAILY [facility] Last Admin: 03/06/17 07:47 Dose: 20 meq Prednisone (Deltasone Tab*) 20 mg PO DAILY [facility] Last Admin: 03/06/17 07:47 Dose: 20 mg Silver Sulfadiazine (Silvadine 1%*) 1 applic TOPICAL DAILY [facility] Vital Signs: Temp Pulse Resp BP Pulse Ox 98.2 F 91 18 129/55 97 03/06/17 07:26 03/06/17 07:45 03/06/17 07:45 03/06/17 07:26 03/06/17 07:46 Oxygen Devices in Use Now: Nasal Cannula Appearance: Well appearing, in NAD Respiratory: Symmetrical Chest Expansion and Respiratory Effort, Clear to Auscultation Cardiovascular: NL Sounds; No Murmurs; No JVD, RRR Abdominal: NL Sounds; No Tenderness; No Distention Extremities: - - improving edema bilaterally, 1-2+ LLE, 2-3+RLE Skin: - - faint erythema RLE, resolving, some hyperemia/hyperpigmentation LLE, healing, shallow ulcerations over RLE Neurological: Alert and Oriented x 3 Result Diagrams: 03/04/17 04:55 03/06/17 08:43 Microbiology and Other Data: Microbiology 03/02/17 16:11 Aerobic Blood Culture - Preliminary Blood Venous No Growth Day 1 Anaerobic Blood Culture - Preliminary No Growth Day 1 03/02/17 16:18 Aerobic Blood Culture - Preliminary Blood Venous No Growth Day 1 Anaerobic Blood Culture - Preliminary No Growth Day 1 Diagnostic Imaging: CT RLE - no evidence of osteo or deep abscess, hardware loosening at distal tibia Assess/Plan/Problems-Billing Assessment: This is a 71 yo female with a h/o NIDDM, CHF, giant cell arteritis, h/o DVT/PE, afib, CKD, COPD, HLD and prior TIA who was referred to the hospital by orthopedic surgeon, Dr Rivas, with concern for cellulitis. - Patient Problems (1) Cellulitis Comment: RLE over prior surgical site with 3 shallow ulcerations Wound care consult completed who agrees with dry dressings and compression with elevation of LE Blood cultures are negative Cont vancomycin empirically Noted clinical improvement CT is not suggestive of osteo or deep abscess Appreciate ID input who suggests continued antibiotic therapy with recommendation for hardware removal or intermediate teacher suppression therapy if the hardware were to be retained (2) Respiratory acidosis Comment: Appears clinically compensated ABG pending Noted elevated serum bicarb, likely in response to high pCO2 Patient reports diagnosis of RADHA, but refuses to use CPAP/BiPAP Recommend decreasing supp O2 to increase hypoxic respiratory drive (3) S/P ORIF (open reduction internal fixation) fracture Comment: Dr Rivas 12/2015 XRs reveal hardware failure and Charcot joint changes Original concern for possible osteomyelitis with degenerative changes seen on XR with overlying cellulitis CT of the region is not suggestive of osteomyelitis Dr Rivas would like to remove her hardware at some point in the future, but would like her to be treated with a full course of antibiotics prior to surgery (4) CKD (chronic kidney disease), stage III Comment: Stable, near baseline (5) HLD (hyperlipidemia) (6) H/O deep venous thrombosis Comment: Patient reports allergy to "blood thinners", without additional information (7) Atrial fibrillation Comment: Remains in NSR with flecanide. Not a candidate for anticoagulation (8) Congestive heart failure Comment: Without acute exacerbation (9) Giant cell arteritis Comment: Dependent on 20mg daily She was not stress dosed at admission, no associated sepsis or other hemodynamic instability (10) RADHA (obstructive sleep apnea) Comment: Patient refuses use of CPAP/BiPAP (11) Type 2 diabetes mellitus Comment: HgbA1c 7.9% Cont SS Humalog Oral agents held Status and Disposition: Plan to continue IV abx at this time. Dr Rivas would like to delay any surgical intervention for several weeks. Social work is involved to help with getting a recliner at home. Plan for dc home with po abx tomorrow.
[2017-03-06 12:24] LABS: FIO2 2
[2017-03-06 12:28] LABS: PCO2 Arterial 67 mmHg (35-45)
[2017-03-06] MEDS: Silver Sulfadiazine 1%* 20 GM TOPICAL SCH (13:17)
[2017-03-07] MEDS ORDERED: Vancomycin(*) 1,000 MG in NS 0.9% 250 ML* 250 ML IVPB SCH (04:00)
[2017-03-07 08:17] LABS: BUN/Creatinine Ratio 26.8 (8-20); C Reactive Protein 6.44 mg/L (< 5.00); Calcium 9.5 mg/dL (8.6-10.3); EGFR Non-African American 56.8 (>60); Potassium 3.8 mmol/L (3.5-5.0)
[2017-03-07] MEDS: Insulin LISPRO* 1 UNITS UNIT SUBCUT SCH (08:31)
[2017-03-07 08:36] VITALS: BP 111/66
[2017-03-07] MEDS: predniSONE TAB* 20 MG PO SCH (09:01)
[2017-03-07] MEDS: Flecainide TAB* 100 MG PO SCH (09:01)
[2017-03-07] MEDS: Aspirin Low Dose CHEW TAB* 81 MG PO SCH (09:01)
[2017-03-07] MEDS: Omeprazole CAP* 20 MG PO SCH (09:02)
[2017-03-07] MEDS: Potassium Chlor TAB* 20 MEQ TAB.ER PO SCH (09:02)
[2017-03-07] MEDS: Atorvastatin* 10 MG TAB PO SCH (09:02)
[2017-03-07] MEDS: Furosemide TAB* 20 MG PO SCH (09:02)
[2017-03-07] MEDS: Metoprolol Tartrate TAB* 25 MG PO SCH (09:03)
[2017-03-07 09:50] LABS: Hematocrit 38 % (35-47); Hemoglobin 12.4 g/dl (12.0-16.0); Mean Corpuscular HGB Conc 32 g/dl (31-36); Mean Corpuscular Hemoglobin 30 pg (27-31); Mean Corpuscular Volume 94 fL (80-97); Red Blood Count 4.08 10^6/ul (4.0-5.4); Red Cell Distribution Width 15 % (10.5-15); White Blood Count 19.6 10^3/ul (3.5-10.8)
[2017-03-07 09:59] LABS: Comments Flag Yes
[2017-03-07 10:00] LABS: Add Diff/Slide Review? Slide Review Added
[2017-03-07] MEDS: Silver Sulfadiazine 1%* 20 GM TOPICAL SCH (10:34)
--- NOTE | 2017-03-08 06:56 | DS ---
DISCHARGE SUMMARY: DATE OF ADMISSION: 03/02/17 DATE OF DISCHARGE: 03/07/17 PRIMARY CARE PROVIDER: Dr. Yuliya Pike. ORTHOPEDIC SURGEON: Dr. Rivas. CONSULTING INFECTIOUS DISEASE SPECIALIST: Dr. Brewer. DISCHARGING PROVIDER: DONNELL Chavez SUPERVISING PHYSICIAN: Myah Thomason MD.* (DONNELL Chavez) PRIMARY DISCHARGE DIAGNOSIS: Cellulitis with history of ORIF in the affected leg. SECONDARY DISCHARGE DIAGNOSES: 1. Chronic hypoxic and hypercarbic respiratory failure likely secondary to obesity, hypoventilation syndrome fully compensated with a chronic respiratory acidosis requiring 2 L supplemental O2 continuously. 2. History of open reduction and internal fixation following bimalleolar right ankle fracture, December 2015, with Dr. Rivas. X-rays revealed hardware failure and Charcot joint changes with plan for hardware removal in upcoming weeks. 2. Chronic kidney disease - stage 2 to 3 without acute exacerbation. 3. Hyperlipidemia. 4. History of deep venous thrombosis with reported ALLERGY TO "BLOOD THINNERS" and an IVC filter in place. 5. Atrial fibrillation - remains in normal sinus rhythm. No anticoagulation. 6. Chronic diastolic heart failure without acute exacerbation. 7. Giant cell arteritis with 20 mg of prednisone daily. 8. Morbid obesity with a BMI of 40. 8. Obstructive sleep apnea and refuses to use CPAP or BiPAP. 9. Insulin dependent diabetes with hemoglobin A1c of 7.9%. DISCHARGE MEDICATIONS: 1. Aspirin 81 mg p.o. daily. 2. Doxycycline 100 mg p.o. b.i.d. 3. Flecainide 50 mg p.o. b.i.d. 4. Lasix 20 mg p.o. b.i.d. 5. Insulin Lispro. 6. Magnesium oxide 400 mg p.o. daily. 7. Metoprolol tartrate 25 mg p.o. b.i.d. 8. Nystatin powder 1000 units supply topically twice daily as needed. 9. Protonix 40 mg p.o. daily. 10. Potassium chloride 20 mEq daily. 11. Pravastatin 40 mg p.o. daily. 12. Metamucil 1 packet p.o. daily. 13. Silvadene cream applied topically around ulcers on right lower extremity daily. 14. Prednisone 20 mg p.o. daily. MEDICATION CHANGES: 1. Doxycycline to be taken until surgery. 2. Silvadene cream. HOSPITAL IMAGING: CT of the right lower extremity demonstrates soft tissue edema and medial soft tissue ulcer without evidence for an abscess. No compelling evidence for osteomyelitis. Some mild backing out of one of the screws at the distal tibia and one of the screws of the distal fibula at the level of the ankle mortis. HOSPITAL COURSE: This is a 71-year-old female with a history of atrial fibrillation for which she is not anticoagulated, as well as giant cell arteritis on chronic steroid therapy, chronic diastolic heart failure, insulin dependent diabetes, chronic kidney disease, hyperlipidemia and history of prior TIA, who was referred to the emergency department with concerns for worsening cellulitis by her orthopedic surgeon, Dr. Rivas. The patient had undergone ORIF for a bimalleolar ankle fracture in December 2015. She had some complications following surgery and has required chronic immobilization. The patient was unfortunately lost to followup over the winter months for various reasons and was seen again in Dr. Rivas's office a couple of weeks ago. It was apparent at that time that the patient had developed cellulitis in the right lower extremity which is the site of her prior fracture and ORIF with retained hardware. She was started on Keflex at that time and unfortunately there was no improvement in the erythema and she was subsequently referred to the emergency department for admission. The patient's mobility has declined significantly since surgery and she has been unable to get to her bed which is located upstairs for several months and had been spending nearly all of her time in an old wheelchair without the ability to elevate her lower extremities, so her legs were in a dependent position nearly 24 hours a day. Upon initial exam, she had multiple small and shallow ulcerations that appeared to be along the line of her boot that she was wearing with an associated cellulitis. The patient was subsequently started on vancomycin for empiric gram positive coverage. Her initial labs did not show leukocytosis and patient was afebrile. Blood cultures remained negative throughout her hospital stay. X-rays done in Dr. Rivas's office demonstrated degenerative changes concerning either for an associated osteomyelitis or more likely some Charcot joint changes. A CT scan was performed of the right lower extremity to further evaluate the concern for a possible osteomyelitis. There is no evidence of deep abscess or lytic changes associated with an osteomyelitis. The patient was continued on vancomycin during her hospital stay and requested consultation from infectious disease specialist, Dr. Brewer, who suggested continuing suppressive therapy with plan for hardware removal. Discussed discharge with the patient's family at length and encouraged considering subacute rehab. The patient and his family decided that they would prefer to go home rather than to rehab. Social work and the case manager have been involved in this case to help with getting appropriate equipment and nursing services at home. A new wheelchair has been ordered with a leg rest and also information given to get her a recliner as well. DISPOSITION: The patient is being discharged to home where she lives with her son and [id number]. She is to remain on doxycycline until surgery with planned hardware removal with Dr. Rivas sometime within the next couple of weeks. She will follow up with Dr. Rivas in his office. Instructions given to the family for dressing changes which needs to performed daily. The importance of leg elevation with continued compression with an Edward wrap was stressed. DONNELL CHAVEZ CC: Dr. Yuliya Pike; Dr. Rivas* [id number]/[facility] #: [id number] JOSE ANGEL
[2017-03-08] MEDS ORDERED: Vancomycin Trough Check NOTE FOLLOW UP ONE (15:30)
== END 2017-03-07 10:50 | disposition home or self-care (01) | DRG 603 ==
LOC: MED 13:06 → UNDODISIN 03-07 10:50
PROVIDERS: ADMIT Internal Medicine; ATTEND Internal Medicine
DX: L03.115 Cellulitis of right lower limb (principal); E87.4 Mixed disorder of acid-base balance; J96.11 Chronic respiratory failure with hypoxia; I50.32 Chronic diastolic (congestive) heart failure; J96.12 Chronic respiratory failure with hypercapnia; E66.2 Morbid (severe) obesity with alveolar hypoventilation; Z68.41 Body mass index [BMI] 40.0-44.9, adult; L97.919 Non-pressure chronic ulcer of unspecified part of right lower leg with unspecified severity; E11.22 Type 2 diabetes mellitus with diabetic chronic kidney disease; N18.3 Chronic kidney disease, stage 3 (moderate); E78.5 Hyperlipidemia, unspecified; I48.91 Unspecified atrial fibrillation; M31.6 Other giant cell arteritis; G47.33 Obstructive sleep apnea (adult) (pediatric); Z79.82 Long term (current) use of aspirin; Z79.4 Long term (current) use of insulin; Z79.52 Long term (current) use of systemic steroids; Z79.899 Other long term (current) drug therapy; Z86.73 Personal history of transient ischemic attack (TIA), and cerebral infarction without residual deficits; Z86.718 Personal history of other venous thrombosis and embolism; E11.610 Type 2 diabetes mellitus with diabetic neuropathic arthropathy; Z96.651 Presence of right artificial knee joint; Z88.8 Allergy status to other drugs, medicaments and biological substances
CPT/HCPCS: 36415; 36600; 80048; 80053; 80202; 82803; 83036; 84145; 85025; 85652; 86140; 87040; 94760; A9270-GY; J3370; J7512

== ENCOUNTER 2017-05-06 16:43 | Inpatient (IN) | payer MEDICARE, MEDICAID ==
[2017-05-06 18:48] LABS: Hematocrit 39 % (35-47); Hemoglobin 12.4 g/dl (12.0-16.0); Mean Corpuscular HGB Conc 32 g/dl (31-36); Mean Corpuscular Hemoglobin 30 pg (27-31); Mean Corpuscular Volume 95 fL (80-97); Mean Platelet Volume 8 um3 (7.4-10.4); Red Blood Count 4.06 10^6/ul (4.0-5.4); Red Cell Distribution Width 16 % (10.5-15)
[2017-05-06 18:51] LABS: Add Diff/Slide Review? Manual Diff Added; Comments Flag Yes
[2017-05-06] MEDS ORDERED: Ondansetron INJ* 2 MG/ML VIAL IV PRN (19:01)
[2017-05-06] MEDS ORDERED: Acetaminophen TAB* 325 MG PO PRN (19:01)
[2017-05-06] MEDS ORDERED: Dextrose 50% Syringe 50 ML* 25 GM/50 ML SYRINGE IV PUSH PRN (19:01)
[2017-05-06] MEDS ORDERED: cefTRIAXone VIAL(*) 1,000 MG in NS 0.9% 50 ML* 50 ML IVPB SCH (19:02)
[2017-05-06] MEDS ORDERED: Vancomycin(*) 1,500 MG in NS 0.9% 250 ML* 250 ML IVPB ONE (19:02)
[2017-05-06 19:03] LABS: ALT 15 U/L (7-52); Albumin 3.7 g/dL (3.2-5.2); Alkaline Phosphatase 76 U/L (34-104); BUN/Creatinine Ratio 26.1 (8-20); Blood Urea Nitrogen 23 mg/dL (6-24); C Reactive Protein 167.03 mg/L (< 5.00); Calcium 10.2 mg/dL (8.6-10.3); Chloride 86 mmol/L (101-111); Creatine Kinase 23 U/L (10-223); EGFR African American 81.7 (>60); EGFR Non-African American 63.5 (>60); Globulin 3.2 g/dL (2-4); Glucose 131 mg/dL (70-100); Sodium 138 mmol/L (133-145); Total Protein 6.9 g/dL (6.4-8.9)
[2017-05-06 19:05] LABS: Troponin I 0.02 ng/mL (<0.04)
[2017-05-06] MEDS ORDERED: Albuterol 2.5 MG/3 ML NEB.SOL* (0.083%) INH PRN (19:06)
[2017-05-06] MEDS ORDERED: Vancomycin per Pharmacy* NOTE FOLLOW UP PRN (19:11)
[2017-05-06 19:13] LABS: Add Path Review? YES; Immature Granulocytes 5 % (0-9); Myelocytes % 1 % (0-1); Neutrophil % 57 % (38-83); RBC Morphology Normal (Normal); Reactive Lymph % 2 % (0-6)
[2017-05-06] MEDS ORDERED: NS 0.9% 1000 ML* 1,000 ML IV SCH (19:15)
--- NOTE | 2017-05-06 19:20 | RAD ---
INDICATION: Cough and shortness of breath. COMPARISON: Comparison is made with a prior chest x-ray study from January 18, 2016. TECHNIQUE: AP and lateral views of the chest were obtained. FINDINGS: The heart is moderately enlarged and unchanged from the prior exam. There is a infiltrate present at the right lung base. No pleural effusion is seen. There are compression fractures of mid and lower dorsal vertebra which appear unchanged. IMPRESSION: RIGHT BASILAR INFILTRATE, RECOMMEND FOLLOW-UP CHEST X-RAYS TO RESOLUTION.
[2017-05-06 19:24] LABS: CO2 Carbon Dioxide 44 mmol/L (22-32)
[2017-05-06] MEDS: cefTRIAXone VIAL(*) 1,000 MG in NS 0.9% 50 ML* 50 ML IVPB SCH (20:43)
[2017-05-06] MEDS: Albuterol/Ipratropium NEB.SOL* Albuterol 2.5 MG/Ipratropium 0.5 MG 3 ML INH SCH (22:21)
--- NOTE | 2017-05-06 22:21 | HP ---
CC: Dr. Pike* HISTORY AND PHYSICAL: DATE OF ADMISSION: 05/06/17 PRIMARY CARE PHYSICIAN: Dr. Pike. ATTENDING PHYSICIAN WHILE IN THE HOSPITAL: Luis Carlos Hillman MD * (report dictated by Rachel Zuleta NP) CHIEF COMPLAINT: Cough. HISTORY OF PRESENT ILLNESS: Ms. Melton is a 71-year-old female patient with multiple medical problems. She has a history of diabetes, diastolic CHF, giant cell arteritis, DVT, PE, AFib, hemorrhagic shock secondary to blood thinners, hyperlipidemia, CKD, COPD, and history of TIA and she is also on chronic O2. She comes to the ER today stating over the last couple of weeks, she has had progressive worsening cough. She has been bringing up a greenish type sputum and has been more and more short of breath. She has been having chills off and on at home. She denied having any documented fever. She says that she cannot lie flat, but she says this has been a chronic issue for her. She has also noticed that she has had a skin rash and warmth noted to the left side of her neck. She also says that she has rash underneath bilateral breasts as well. She denied having any recent sick contacts. There has been no associated nausea , vomiting or diarrhea. She came into the ER today. There was concern when she was evaluated because it was noted that she was little hypotensive, she had an elevated white count. In addition to this, x-ray was concerning for possible pneumonia. Because of this, the hospitalist service was asked to evaluate for admission. PAST MEDICAL HISTORY: Significant for: 1. Diabetes. 2. Diastolic CHF. 3. Giant cell arteritis. 4. DVT. 5. PE. 6. AFib. 7. CKD. 8. COPD. 9. Hemorrhagic shock secondary to blood thinner. 10. Hyperlipidemia. 11. TIA. PAST SURGICAL HISTORY: 1. She has had an IVC filter. 2. She has had an ORIF of the right ankle. 3. Appendectomy. 4. Laparoscopic cholecystectomy. HOME MEDICATIONS: According to the list that she gave us include: 1. Prednisone 20 mg daily. 2. Benadryl 50 mg every 6 hours as needed. 3. Tizanidine 4 mg p.o. b.i.d. 4. Silvadene 1 application topically daily. 5. Metamucil 1 packet p.o. daily. 6. Pravachol 40 mg at bedtime. 7. Potassium 20 mEq p.o. daily. 8. Prilosec 20 mg p.o. b.i.d. 9. Nystatin topical 100,000 units externally b.i.d. to affected area. 10. Multivitamin 1 tablet daily. 11. Metoprolol 25 mg b.i.d. 12. Magnesium oxide 400 mg daily. 13. Claritin D 1 tablet daily. 14. Insulin sliding scale lispro a.c. and h.s. 15. Furosemide 40 mg daily. 16. Doxycycline 100 mg p.o. b.i.d. 17. B12 1000 mcg p.o. daily. 18. Vitamin D 1000 units p.o. daily. 19. Aspirin 81 mg p.o. daily. 20. Tylenol Extra Strength 500 mg every 6 hours as needed. ALLERGIES TO MEDICATIONS: Include EGGS, BACITRACIN, ARGATROBAN, LOVENOX, HEPARIN, BETADINE, BLOOD THINNERS. FAMILY HISTORY: Mother had a history of CVA and father had a history of [place]. SOCIAL HISTORY: She is a former smoker. She does not drink alcohol. Surrogate decision maker is her son. REVIEW OF SYSTEMS: There is no documented fever. She denied any significant weight change to me. There was no double vision. She denied having any ear discharge. No rhinorrhea, no sore throat. No thyroid enlargement. She denied having any chest pain. There is dyspnea on exertion. There was orthopnea. There was no nocturnal dyspnea. No abdominal pain, no nausea, no vomiting, no dysuria, no frequency, no seizure, no loss of consciousness. Review of 14 systems completed, all others negative. PHYSICAL EXAMINATION GENERAL: At this time, Ms. Melton is a 71-year-old female patient. She is sitting in the ER stretcher. She is chronically ill appearing. She does not appear to be in acute distress. VITAL SIGNS: Blood pressure is 93/56 with a pulse of 90, respirations 18, O2 saturation 95% on 2 L, temperature 97.4. HEENT: Head is atraumatic, normocephalic. Eyes: EOMs are intact. Sclerae were anicteric and not pale. Throat: Oral mucosa appears to be moist. No oropharyngeal edema. NECK: Supple. LUNGS: She had some rhonchi noted on the right lower lobe. She had wheezing there. She had equal diaphragmatic expansion. HEART: Sounds, S1, S2. Regular rate and rhythm. No murmurs, rubs or gallops. ABDOMEN: Soft, flat, nontender. EXTREMITIES: Pulses 2+ throughout, she had +4 pedal edema bilaterally. NEUROLOGIC: She is awake, alert, oriented x3. Tongue midline. House Piping Inspector were equal. No gross focal deficits. SKIN: Intact with the exception, she has got an area of erythema noted to the left side of her neck with scabbing noted into the center. I do not appreciate or palpate any fluctuation or induration. Overall, the skin is intact. LABORATORY AND DIAGNOSTIC DATA: Labs reveal WBC 15.0, RBC of 4.06, hemoglobin of 12.4, hematocrit 39, platelet count 190, PTT of 29.5. Sodium was 138, potassium pending, chloride 86, bicarb pending. BUN 23, creatinine of 0.88, glucose 131, lactic 1.1, calcium 10.2, total bili is 0.5, ALT 15, alk phos 76, troponin 0.02, CRP 167, BNP of 66. She had a chest x-ray obtained, I am waiting for official review. In my opinion, it does appear that she has a right lower lobe infiltrate. She did have an EKG obtained today, which shows a normal sinus rhythm, rate of 89, no ST elevation or T-wave inversions were noted. Old medical records were reviewed. ASSESSMENT AND PLAN: Ms. Melton is a 71-year-old female patient coming into the ER today with complaints of cough, shortness of breath and having chills. On evaluation, she appears to have pneumonia on x-ray. She will be admitted under inpatient status for: 1. Pneumonia: At this point, I will go ahead and put her on azithromycin and ceftriaxone. I have ordered flutter valve. She is on steroid 20 mg a day. I will continue this. If she drops her blood pressure, I would certainly put her on stress dosed steroids. I will go ahead and continue nebs and aggressive pulmonary toileting. 2. Cellulitis: She does appear to have cellulitis noted to the left side of her neck. At this point, I will put her on vancomycin. She does have a history of MRSA and we will continue to follow. 3. Diabetes: She will be on lispro sliding scale. 4. History of congestive heart failure: We will follow her hydration status closely and diurese as needed. I am going to give her some fluids tonight because her blood pressures were in the 90 systolic in the ED. 5. Giant cell arteritis. Continue her steroids. 6. History of deep venous thrombosis, pulmonary embolism: Continue her current medical regimen. 7. History of atrial fibrillation: She appears to be in sinus rhythm, rate controlled. 8. Chronic kidney disease: Creatinine is stable. 9. Chronic obstructive pulmonary disease: Continue with nebs, steroids, Dulera and pulmonary toileting. 10. Hyperlipidemia: Continue current therapy. 11. Transient ischemic attack: We will go ahead and continue with secondary prevention. 12. DVT prophylaxis vein. She will be placed on SCDs. 13. Code status. Full code. 14. Fluids, electrolyte, nutrition. She can have a heart healthy diet. TIME SPENT: Time spent on admission was approximately 60 minutes, greater than half the time [id number] with the patient obtaining history and physical, other half time spent going over the plan of care with the patient and implementing plan of care. I did discuss the plan of care with my attending, Dr. Hillman, he is in agreement. RACHEL ZULETA NP [id number]/[facility] #: [id number] JOSE ANGEL
[2017-05-06] MEDS: Mometasone/Formoter 200/5 MDI INH SCH (22:25)
[2017-05-06] MEDS ORDERED: NS 0.9% 250 ML* 0 ML ONE (23:00)
[2017-05-06] MEDS: Omeprazole CAP* 20 MG PO SCH (23:40)
[2017-05-06] MEDS: tiZANidine TAB* 2 MG PO SCH (23:40)
[2017-05-06] MEDS: Atorvastatin* 10 MG TAB PO SCH (23:40)
[2017-05-06] MEDS: Metoprolol Tartrate TAB* 25 MG PO SCH (23:41)
[2017-05-07] MEDS: Flecainide TAB* 100 MG PO SCH ×3 (00:41→22:07)
[2017-05-07] MEDS: Albuterol/Ipratropium NEB.SOL* Albuterol 2.5 MG/Ipratropium 0.5 MG 3 ML INH SCH ×4 (01:14→12:55)
[2017-05-07] MEDS: cefTRIAXone VIAL(*) 1,000 MG in NS 0.9% 50 ML* 50 ML IVPB SCH ×2 (01:42→20:35)
[2017-05-07] MEDS: Azithromycin IV(*) 500 MG in NS 0.9% 250 ML* 250 ML IVPB SCH ×3 (02:36→04:54)
[2017-05-07] MEDS: Mometasone/Formoter 200/5 MDI INH SCH ×2 (08:40→20:34)
[2017-05-07] MEDS: Omeprazole CAP* 20 MG PO SCH ×2 (09:04→22:08)
[2017-05-07] MEDS: Potassium Chlor TAB* 20 MEQ TAB.ER PO SCH (09:04)
[2017-05-07] MEDS: predniSONE TAB* 20 MG PO SCH (09:04)
[2017-05-07] MEDS: Metoprolol Tartrate TAB* 25 MG PO SCH ×2 (09:04→22:09)
[2017-05-07] MEDS: Aspirin Low Dose CHEW TAB* 81 MG PO SCH (09:04)
[2017-05-07] MEDS: Insulin LISPRO* 1 UNITS UNIT SUBCUT SCH ×4 (09:05→22:25)
[2017-05-07] MEDS: tiZANidine TAB* 2 MG PO SCH (09:05)
--- NOTE | 2017-05-07 10:41 | PN ---
Subjective Date of Service: 05/07/17 Interval History: . 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 IV antibiotics ongoing. Family History: Unchanged from Admission Social History: Unchanged from Admission Past Medical History: Unchanged from Admission Objective Active Medications: . Acetaminophen (Tylenol Tab*) 650 mg PO Q4H PRN PRN Reason: FEVER/PAIN Albuterol (Ventolin 2.5 Mg/3 Ml Neb.Maranda*) 2.5 mg INH Q2H PRN PRN Reason: SOB/WHEEZING Albuterol/Ipratropium (Duoneb (Albuterol 2.5 Mg/Ipratropium 0.5 Mg)) 1 neb INH [id number] AWAKE [facility] Last Admin: 05/07/17 08:40 Dose: 1 neb Aspirin (Aspirin Low Dose Tab*) 81 mg PO DAILY [facility] Last Admin: 05/07/17 09:04 Dose: 81 mg Atorvastatin Calcium (Lipitor*) 10 mg PO BEDTIME SANGEETHA PRN Reason: Protocol Last Admin: 05/06/17 23:40 Dose: 10 mg Dextrose (D50w Syringe 50 Ml*) 12.5 gm IV PUSH .FOR FS < 60 - SS PRN PRN Reason: FS < 60 Flecainide Acetate (Tambocor Tab*) 50 mg PO BID [facility] Last Admin: 05/07/17 09:08 Dose: 50 mg Sodium Chloride (Ns 0.9% 1000 Ml*) 1,000 mls @ 75 mls/hr IV PER RATE [facility] Last Admin: 05/06/17 23:29 Dose: 75 mls/hr Ceftriaxone Sodium 1,000 mg/ (Sodium Chloride) 50 mls @ 200 mls/hr IVPB 2030 [facility] Last Admin: 05/07/17 01:42 Dose: 200 mls/hr Vancomycin HCl 1,250 mg/ (Sodium Chloride) 250 mls @ 166.667 mls/hr IVPB Q12H [facility] Azithromycin 500 mg/ Sodium (Chloride) 250 mls @ 250 mls/hr IVPB 0230 [facility] Last Admin: 05/07/17 02:55 Dose: 250 mls/hr Insulin Human Lispro (Humalog*) 0 units SUBCUT AC SANGEETHA PRN Reason: Protocol Last Admin: 05/07/17 09:05 Dose: 3 units Metoprolol Tartrate (Lopressor Tab*) 25 mg PO BID [facility] Last Admin: 05/07/17 09:04 Dose: 25 mg Mometasone Furoate/Formoterol Fumar (Dulera 200/5 Mdi*) 2 puff INH BID [facility] Last Admin: 05/07/17 08:40 Dose: 2 puff Nystatin (Nystatin Top Powder*) 1 applic TOPICAL BID PRN PRN Reason: RASH Omeprazole (Prilosec Cap*) 20 mg PO BID [facility] Last Admin: 05/07/17 09:04 Dose: 20 mg Ondansetron HCl (Zofran Inj*) 4 mg IV Q6H PRN PRN Reason: NAUSEA Pharmacy Consult (Vancomycin Per Pharmacy*) 1 note FOLLOW UP . PRN PRN Reason: PER PROTOCOL Pharmacy Profile Note (Vancomycin Trough Check) 1 note FOLLOW UP 1200 ONE Stop: 05/08/17 12:01 Potassium Chloride (Klor Con Er Tab*) 20 meq PO DAILY [facility] Last Admin: 05/07/17 09:04 Dose: 20 meq Prednisone (Deltasone Tab*) 20 mg PO DAILY [facility] Last Admin: 05/07/17 09:04 Dose: 20 mg Tizanidine HCl (Zanaflex Tab*) 4 mg PO BID [facility] Last Admin: 05/07/17 09:05 Dose: 4 mg . Vital Signs 05/06/17 05/06/17 05/06/17 20:02 20:25 20:27 Temperature 99.3 F 97.7 F Pulse Rate 103 63 Respiratory 18 16 Rate Blood Pressure 109/50 104/59 104/59 (mmHg) O2 Sat by Pulse 95 96 Oximetry 05/06/17 05/06/17 05/06/17 20:29 20:30 21:30 Temperature 99.3 F Pulse Rate 78 105 103 Respiratory 19 Rate Blood Pressure 104/58 109/50 (mmHg) O2 Sat by Pulse 94 96 95 Oximetry Result Diagrams: 05/06/17 18:40 05/06/17 18:40 Microbiology and Other Data: Microbiology 05/06/17 21:50 Nasal Screen MRSA (PCR)(NANETTE) - Final Nasal Mrsa Negative Assess/Plan/Problems-Billing . Assessment: 71 yo female with lobar pneumonia and cellulitis in setting of diabetes and chronic prednisone and associated immunosuppression. Current Medications: - Acetaminophen (Tylenol Tab) 650 mg PO Q4H PRN FEVER/PAIN - Albuterol (Ventolin 2.5 Mg/3 Ml Neb.Maranda) 2.5 mg INH Q2H PRN SOB/WHEEZING - Albuterol/Ipratropium (Duoneb (Albuterol 2.5 Mg/Ipratropium 0.5 Mg)) 1 neb INH [id number] AWAKE SANGEETHA - Aspirin (Aspirin Low Dose Tab) 81 mg PO DAILY - Atorvastatin Calcium (Lipitor) 10 mg PO BEDTIME - Dextrose (D50w Syringe 50 Ml) 12.5 gm IV PUSH .FOR FS < 60 - SS PRN FS < 60 - Flecainide Acetate (Tambocor Tab) 50 mg PO BID - NS @ 75 mls/hr IV - Ceftriaxone Sodium 1,000 mg IVPB daily - Vancomycin HCl 1,250 mg (Sodium Chloride) 250 mls @ 166.667 mls/hr IVPB Q12H - Azithromycin 500 mg IVPB daily - Insulin Human Lispro (Humalog) 0 units SUBCUT AC By Protocol - Metoprolol Tartrate (Lopressor Tab) 25 mg PO BID -Mometasone Furoate/Formoterol Fumar (Dulera 200/5 Mdi) 2 puff INH BID - Nystatin (Nystatin Top Powder*) 1 applic TOPICAL BID PRN RASH - Omeprazole (Prilosec Cap*) 20 mg PO BID - Ondansetron HCl (Zofran Inj) 4 mg IV Q6H PRN NAUSEA - Potassium Chloride (Klor Con Er Tab) 20 meq PO DAILY - Prednisone (Deltasone Tab) 20 mg PO DAILY - Tizanidine HCl (Zanaflex Tab) 4 mg PO BID - Patient Problems (1) Pneumonia Current Visit: Yes Status: Acute Priority: High Code(s): J18.9 - PNEUMONIA , UNSPECIFIED ORGANISM Comment: - R baslilar infiltrate, SOB, productive cough, leukocytosis, elevated CRP -- > consistent with clinical pneumonia. - Ceftriaxone Sodium 1,000 mg IVPB daily - Vancomycin HCl 1,250 mg (Sodium Chloride) 250 mls @ 166.667 mls/hr IVPB Q12H - Azithromycin 500 mg IVPB daily - BCX pending - gentle IVF (2) Cellulitis, neck Current Visit: Yes Status: Acute Priority: High Code(s): L03.221 - CELLULITIS OF NECK Comment: - IV vanco will cover pulmonary pathogens as well as skin kaylah. (3) Cutaneous candidiasis Current Visit: Yes Status: Acute Priority: High Code(s): B37.2 - CANDIDIASIS OF SKIN AND NAIL Comment: - Nystatin as ordered. - could present entry for cellulitis (skin breakdown) (4) Immunocompromised Current Visit: Yes Status: Acute Priority: High Code(s): D84.9 - IMMUNODEFICIENCY, UNSPECIFIED Comment: - secondary to GCA/prednisone + diabetes. (5) Giant cell arteritis Current Visit: No Status: Chronic Code(s): M31.6 - OTHER GIANT CELL ARTERITIS SNOMED Code(s): 472511778 Comment: Dependent on 20mg daily She was not stress dosed at admission, no associated sepsis or other hemodynamic instability
[2017-05-07] MEDS: Nystatin TOP POWDER* 15 GM BTL TOPICAL PRN ×2 (11:00→22:17)
[2017-05-07] MEDS ORDERED: NS 0.9% 1000 ML* 1,000 ML IV ONE (12:08)
[2017-05-07] MEDS: Vancomycin(*) 1,250 MG IV IVPB SCH ×2 (13:03)
[2017-05-07] MEDS ORDERED: Hydrocortisone INJ* 100 MG VIAL IV ONE (13:12)
--- NOTE | 2017-05-07 14:53 | RAD ---
HISTORY: Hypoxia COMPARISONS: May 06, 2017 VIEWS:1: Single frontal portable view of the chest at 2:00 PM FINDINGS: LINES AND TUBES: None. CARDIOMEDIASTINAL SILHOUETTE: The cardiac silhouette is enlarged. The cardiomediastinal silhouette is otherwise normal for portable technique. PLEURA: There is a small left pleural effusion LUNG PARENCHYMA: There is confluent alveolar opacification of the right midlung and left lung base. There is prominence of the central pulmonary vasculature. ABDOMEN: The upper abdomen is clear. There is no subphrenic gas. BONES AND SOFT TISSUES: No bone or soft tissue abnormalities are noted. IMPRESSION: 1. THERE IS ATELECTASIS OF THE RIGHT MIDDLE LOBE. 2. THERE IS LEFT BASILAR ATELECTASIS VERSUS CONSOLIDATION WITH A SMALL LEFT PLEURAL EFFUSION. 3. CARDIOMEGALY WITH PROMINENCE OF THE CENTRAL PULMONARY VASCULATURE.
[2017-05-07 15:50] LABS: PCO2 Arterial 89 mmHg (35-45)
--- NOTE | 2017-05-07 15:52 | ED ---
Jessica Banda Auryana, scribed for Bernardo Stafford MD on 05/06/17 at 1806 . Respiratory - HPI Summary HPI Summary: 71 y/o female presents to ED with a productive cough starting 2 weeks ago. She reports that her sputum is green. She also has chills with hot flashes, an unsteady gait, and erythema underneath the bilateral breasts per family. Family state that patient cannot be on any blood thinners other than a baby ASA due to previous multi-system organ failure. PMHx is significant for shingles, MRSA, PNA , bronchitis, PE, DVT, DM, hernia with mesh placement, myocardial effusion. Patient's son is her healthcare proxy. 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, Still Present Timing: Constant Initial Severity: Moderate Current Severity: Moderate Pain Intensity: 0 Sputum Color: Green - "Alien Green" Associated Signs and Symptoms: Fever, Edema - Abdominal, lower leg, Chills - Hot and cold, Diaphoresis - Allergy/Home Medications Allergies/Adverse Reactions: Allergies Allergy/AdvReac Type Severity Reaction Status Date / Time Eggs or Egg-derived Products Allergy Severe Vomiting Verified 03/23/16 13:10 Bacitracin Allergy Mild Rash Verified 03/23/16 13:10 Argatroban Allergy See Comment Verified 03/04/17 08:58 Enoxaparin [From Lovenox] Allergy See Comment Verified 03/04/17 08:57 Heparin Allergy See Comment Verified 03/04/17 08:57 Povidone Iodine Allergy Unknown Verified 03/23/16 13:10 [From Betadine] Reaction Details 'blood thinners" AdvReac Severe hemmorage,i Uncoded 03/23/16 13:10 nternal Home Medications: Home Medications Acetaminophen [Acetaminophen Extra Stren] 500 mg PO Q6HR 05/06/17 [History Confirmed 05/06/17] Cholecalciferol TAB* [Vitamin D TAB*] 1,000 unit PO DAILY 05/06/17 [History Confirmed 05/06/17] Cyanocobalamin TAB* [Vitamin B12 TAB*] 1,000 mcg PO DAILY 05/06/17 [History Confirmed 05/06/17] DOXYcycline CAP(*) [DOXYcycline 100MG CAP(*)] 100 mg PO BID 05/06/17 [History Confirmed 05/06/17] Furosemide TAB* [Lasix TAB*] 40 mg PO QAM 05/06/17 [History Confirmed 05/06/17] Insulin LISPRO* [HumaLOG*] 0 - 30 units SUBCUT ACHS MDD 30 units 05/06/17 [ History Confirmed 05/06/17] Magnesium Oxide TAB* [MagOx 400 TAB*] 400 mg PO DAILY 05/06/17 [History Confirmed 05/06/17] Multiple Vitamin [Multivitamin+] 1 liq PO DAILY 05/06/17 [History Confirmed 08/14] Omeprazole CAP* [Prilosec CAP* 20 MG] 20 mg PO BID 05/06/17 [History Confirmed 05/06/17] Pravastatin (NF) [Pravachol (NF)] 40 mg PO BEDTIME 05/06/17 [History Confirmed 05/06/17] Tizanidine HCl 4 mg PO BID 05/06/17 [History Confirmed 05/06/17] PMH/Surg Hx/FS Hx/Imm Hx Endocrine/Hematology History: Reports: Hx Diabetes Denies: Hx Thyroid Disease Cardiovascular History: Reports: Hx Congestive Heart Failure, Hx Coronary Artery Disease, Hx Deep Vein Thrombosis, Hx Hypertension, Other Cardiovascular Problems/Disorders - rectus sheath hematoma, paroxysmal Afib Respiratory History: Reports: Hx Chronic Obstructive Pulmonary Disease (COPD), Hx Pneumonia, Hx Pulmonary Embolism Denies: Hx Asthma GI History: Reports: Hx Gastroesophageal Reflux Disease History: Reports: Other Problems/Disorders - CKD Musculoskeletal History: Reports: Hx Arthritis - bilat knees, Hx Back Problems, Other Musculoskeletal History - Right total knee replacement 2010 Sensory History: Reports: Hx Contacts or Glasses, Hx Glaucoma - right eye, Hx Legally Blind - Left eye, Hx Vision Problem - blind L eye, Hx Hearing Problem - [place] Denies: Hx Hearing Aid Opthamlomology History: Reports: Hx Contacts or Glasses, Hx Glaucoma - right eye , Hx Legally Blind - Left eye, Hx Vision Problem - blind L eye Neurological History: Denies: Hx Dementia, Hx Seizures - Surgical History Surgery Procedure, Year, and Place: R TKA 2011. appy. Tonsilectomy. cholecysectomy. umbrella filter inserted aug 2014,right ankle,hernia repair, Hx Anesthesia Reactions: No Infectious Disease History: No Infectious Disease History: Reports: Hx of Known/Suspected MRSA Denies: Traveled Outside the [place] in Last 30 Days - Family History Known Family History: Positive: Cardiac Disease - Social History Occupation: Retired Lives: With Family Alcohol Use: None Substance Use Type: Reports: None Smoking Status (MU): Former Smoker Type: Cigarettes Amount Used/How Often: quit 32 years ago Have You Smoked in the Last Year: No Review of Systems Positive: Chills, Skin Diaphoresis. Negative: Fever - none Eyes: Negative ENT: Negative Cardiovascular: Negative Positive: Cough - Productive, green-colored mucous Gastrointestinal: Negative Genitourinary: Negative Positive: Edema - Lower left leg Positive: Rash - Neck and shoulder , Other - erythema under the bilateral breasts Neurological: Negative Psychological: Normal All Other Systems Reviewed And Are Negative: Yes Physical Exam - Summary Physical Exam Summary: VITAL SIGNS: Reviewed. GENERAL: Patient is a well-developed and obese female who is lying comfortable in the stretcher. Patient is not in any acute respiratory distress. HEAD AND FACE: No signs of trauma. No ecchymosis, hematomas or skull depressions. No sinus tenderness. EYES: PERRLA, EOMI x 2, No injected conjunctiva, no nystagmus. EARS: Hearing grossly intact. Ear canals and tympanic membranes are within normal limits. MOUTH: Oropharynx within normal limits. NECK: Supple, trachea is midline, no adenopathy, no JVD, no carotid bruit, no c- spine tenderness, neck with full ROM. CHEST: Symmetric, no tenderness at palpation LUNGS: Clear to auscultation bilaterally. Bilateral crackles. CVS: Regular rate and rhythm, S1 and S2 present, no murmurs or gallops appreciated. ABDOMEN: Obese, soft, non-tender. No signs of distention. No rebound no guarding , and no masses palpated. Bowel sounds are normal. EXTREMITIES: RLE in uniboot, LLE erythema and 1+ edema. FROM in all major joints , no cyanosis or clubbing. NEURO: Alert and oriented x 3. No acute neurological deficits. Speech is normal and follows commands. SKIN: Dry and warm. Erythematous blanching rash with irregular borders on the right side of neck and shoulder. Erythema under breasts. Triage Information Reviewed: Yes Vital Signs On Initial Exam: Initial Vitals Temp Pulse Resp BP Pulse Ox 97.7 F 96 20 93/56 96 05/06/17 16:49 05/06/17 16:49 05/06/17 16:49 05/06/17 16:49 05/06/17 16:49 Vital Signs Reviewed: Yes Diagnostics - Vital Signs Vital Signs Temp Pulse Resp BP Pulse Ox 05/06/17 16:53 97.4 F 90 20 93/56 95 05/06/17 16:49 97.7 F 96 20 93/56 96 - Laboratory Lab Results: Lab Results 05/06/17 05/06/17 05/06/17 Range/Units 18:40 18:40 18:40 WBC 15.0 H (3.5-10.8) 10^3/ul RBC 4.06 (4.0-5.4) 10^6/ul Hgb 12.4 (12.0-16.0) g/dl Hct 39 (35-47) % MCV 95 (80-97) fL MCH 30 (27-31) pg MCHC 32 (31-36) g/dl RDW 16 H (10.5-15) % Plt Count 190 (150-450) 10^3/ul MPV 8 (7.4-10.4) um3 Immature Gran % (Auto) 5 (0-9) % Absolute Neuts (auto) 9.5 H (1.5-7.7) 10^3/ul Absolute Lymphs (auto) 3.3 (1.0-4.8) 10^3/ul Absolute Monos (auto) 2.1 H (0-0.8) 10^3/ul Absolute Eos (auto) 0 (0-0.6) 10^3/ul Absolute Basos (auto) 0 (0-0.2) 10^3/ul Absolute Nucleated RBC 0 10^3/ul Neutrophils % 57 (38-83) % Band Neutrophils % 4 (0-8) % Lymphocytes % 22 L (25-47) % Reactive Lymphs % 2 (0-6) % Monocytes % 14 H (0-13) % Myelocytes % 1 (0-1) % Normal RBC Morphology Normal (Normal) Hem Pathologist Commnt Pending APTT (26.0-36.3) seconds Sodium 138 (133-145) mmol/L Potassium TNP Chloride 86 L (101-111) mmol/L Carbon Dioxide 44 H* (22-32) mmol/L Anion Gap TNP BUN 23 (6-24) mg/dL Creatinine 0.88 (0.51-0.95) mg/dL Est GFR ( Amer) 81.7 (>60) Est GFR (Non-Af Amer) 63.5 (>60) BUN/Creatinine Ratio 26.1 H (8-20) Glucose 131 H (70-100) mg/dL Lactic Acid 1.1 (0.5-2.0) mmol/L Calcium 10.2 (8.6-10.3) mg/dL Total Bilirubin 0.50 (0.2-1.0) mg/dL AST TNP ALT 15 (7-52) U/L Alkaline Phosphatase 76 (34-104) U/L Total Creatine Kinase 23 (10-223) U/L Troponin I 0.02 (<0.04) ng/mL C-Reactive Protein 167.03 H (< 5.00) mg/L B-Natriuretic Peptide ( - 100) pg/mL Total Protein 6.9 (6.4-8.9) g/dL Albumin 3.7 (3.2-5.2) g/dL Globulin 3.2 (2-4) g/dL Albumin/Globulin Ratio 1.2 (1-3) 05/06/17 05/06/17 Range/Units 18:40 18:40 WBC (3.5-10.8) 10^3/ul RBC (4.0-5.4) 10^6/ul Hgb (12.0-16.0) g/dl Hct (35-47) % MCV (80-97) fL MCH (27-31) pg MCHC (31-36) g/dl RDW (10.5-15) % Plt Count (150-450) 10^3/ul MPV (7.4-10.4) um3 Immature Gran % (Auto) (0-9) % Absolute Neuts (auto) (1.5-7.7) 10^3/ul Absolute Lymphs (auto) (1.0-4.8) 10^3/ul Absolute Monos (auto) (0-0.8) 10^3/ul Absolute Eos (auto) (0-0.6) 10^3/ul Absolute Basos (auto) (0-0.2) 10^3/ul Absolute Nucleated RBC 10^3/ul Neutrophils % (38-83) % Band Neutrophils % (0-8) % Lymphocytes % (25-47) % Reactive Lymphs % (0-6) % Monocytes % (0-13) % Myelocytes % (0-1) % Normal RBC Morphology (Normal) Hem Pathologist Commnt APTT 29.5 (26.0-36.3) seconds Sodium (133-145) mmol/L Potassium Chloride (101-111) mmol/L Carbon Dioxide (22-32) mmol/L Anion Gap BUN (6-24) mg/dL Creatinine (0.51-0.95) mg/dL Est GFR ( Amer) (>60) Est GFR (Non-Af Amer) (>60) BUN/Creatinine Ratio (8-20) Glucose (70-100) mg/dL Lactic Acid (0.5-2.0) mmol/L Calcium (8.6-10.3) mg/dL Total Bilirubin (0.2-1.0) mg/dL AST ALT (7-52) U/L Alkaline Phosphatase (34-104) U/L Total Creatine Kinase (10-223) U/L Troponin I (<0.04) ng/mL C-Reactive Protein (< 5.00) mg/L B-Natriuretic Peptide 66 ( - 100) pg/mL Total Protein (6.4-8.9) g/dL Albumin (3.2-5.2) g/dL Globulin (2-4) g/dL Albumin/Globulin Ratio (1-3) Result Diagrams: 05/06/17 18:40 05/06/17 18:40 Lab Statement: Any lab studies that have been ordered have been reviewed, and results considered in the medical decision making process. Disposition - Course Assessment/Plan: In the ED course an IV access was obtained. Patient was placed in a court of appeals judge. Patient was started with IV fluids. Labs within normal limits except for WBCs 15, CO2 44, Glucose 131,. Troponin #1: and Troponin # 2 (4 hours later): EKG shows a NSR at w/o ST elevations. CXR impression: Right Basilar infiltrate. . In the ED course Ck JACOBO ordered for the patient Rocephin, Azithromycin and later on Vancomycin. He discussed the case with Dr. Hillman and accepted the patient for admission. - Differential Dx - Cardiopulmonary Differential Diagnoses - Cardiopulmonary: Bronchitis, Other - Pneumonia - Diagnoses Provider Diagnoses: Pneumonia Discharge - Discharge Plan Condition: Stable Disposition: ADMITTED TO [facility] Discharge Disposition Comment: signout to Dr. Ni at 19:00 pending disposition The documentation as recorded by the Jessica kiran Auryana accurately reflects the service I personally performed and the decisions made by , Bernardo Stafford MD.
[2017-05-07 21:51] LABS: FIO2 4
[2017-05-07 21:57] LABS: PCO2 Arterial 72 mmHg (35-45)
[2017-05-07] MEDS: Atorvastatin* 10 MG TAB PO SCH (22:07)
[2017-05-08] MEDS: Vancomycin(*) 1,250 MG IV IVPB SCH ×4 (00:54→12:13)
[2017-05-08] MEDS: Azithromycin IV(*) 500 MG in NS 0.9% 250 ML* 250 ML IVPB SCH (03:30)
[2017-05-08 06:19] LABS: Venous Bicarbonate HCO3 39.2 mmol/L (24-28)
[2017-05-08 06:25] LABS: Hematocrit 30 % (35-47); Hemoglobin 9.7 g/dl (12.0-16.0); Mean Corpuscular HGB Conc 32 g/dl (31-36); Mean Corpuscular Hemoglobin 31 pg (27-31); Mean Corpuscular Volume 95 fL (80-97); Mean Platelet Volume 9 um3 (7.4-10.4); Red Blood Count 3.14 10^6/ul (4.0-5.4); Red Cell Distribution Width 15 % (10.5-15); White Blood Count 12.5 10^3/ul (3.5-10.8)
[2017-05-08 06:33] LABS: Albumin 2.8 g/dL (3.2-5.2); BUN/Creatinine Ratio 27.2 (8-20); Calcium 8.5 mg/dL (8.6-10.3); EGFR African American 89.9 (>60); EGFR Non-African American 69.9 (>60); Globulin 2.6 g/dL (2-4); Potassium 4.3 mmol/L (3.5-5.0); Total Bilirubin 0.2 mg/dL (0.2-1.0); Total Protein 5.4 g/dL (6.4-8.9)
[2017-05-08] MEDS: Mometasone/Formoter 200/5 MDI INH SCH ×2 (08:51→21:36)
[2017-05-08] MEDS: Insulin LISPRO* 1 UNITS UNIT SUBCUT SCH ×4 (09:29→21:47)
[2017-05-08] MEDS: Flecainide TAB* 100 MG PO SCH ×2 (09:30→23:38)
[2017-05-08] MEDS: Omeprazole CAP* 20 MG PO SCH ×2 (09:31→21:52)
[2017-05-08] MEDS: Aspirin Low Dose CHEW TAB* 81 MG PO SCH (09:31)
[2017-05-08] MEDS: Metoprolol Tartrate TAB* 25 MG PO SCH ×2 (09:31→21:47)
[2017-05-08] MEDS: predniSONE TAB* 20 MG PO SCH (09:31)
[2017-05-08] MEDS: Potassium Chlor TAB* 20 MEQ TAB.ER PO SCH (09:31)
[2017-05-08] MEDS ORDERED: Vancomycin Trough Check NOTE FOLLOW UP ONE (12:00)
--- NOTE | 2017-05-08 16:10 | PN ---
Subjective Date of Service: 05/08/17 Interval History: . did well overnight encouraging ABG on BiPAP -- > 10 mm Hg drop in pCO2. Updated family in detail. discussed transfer to [facility] floor and ongoing use of BiPAP as needed. antibiotics ongoing without trouble. . Family History: Unchanged from Admission Social History: Unchanged from Admission Past Medical History: Unchanged from Admission Objective Active Medications: . Acetaminophen (Tylenol Tab*) 650 mg PO Q4H PRN PRN Reason: FEVER/PAIN Albuterol (Ventolin 2.5 Mg/3 Ml Neb.Maranda*) 2.5 mg INH Q2H PRN PRN Reason: SOB/WHEEZING Aspirin (Aspirin Low Dose Tab*) 81 mg PO DAILY [facility] Last Admin: 05/08/17 09:31 Dose: 81 mg Atorvastatin Calcium (Lipitor*) 10 mg PO BEDTIME SANGEETHA PRN Reason: Protocol Last Admin: 05/07/17 22:07 Dose: 10 mg Dextrose (D50w Syringe 50 Ml*) 12.5 gm IV PUSH .FOR FS < 60 - SS PRN PRN Reason: FS < 60 Flecainide Acetate (Tambocor Tab*) 50 mg PO BID [facility] Last Admin: 05/08/17 09:30 Dose: 50 mg Ceftriaxone Sodium 1,000 mg/ (Sodium Chloride) 50 mls @ 200 mls/hr IVPB 2030 [facility] Last Admin: 05/07/17 20:35 Dose: 200 mls/hr Azithromycin 500 mg/ Sodium (Chloride) 250 mls @ 250 mls/hr IVPB 0230 [facility] Last Admin: 05/08/17 03:30 Dose: 250 mls/hr Vancomycin HCl 1,000 mg/ (Sodium Chloride) 250 mls @ 166.667 mls/hr IVPB Q12H [facility] Insulin Human Lispro (Humalog*) 0 units SUBCUT ACHS SANGEETHA PRN Reason: Protocol Last Admin: 05/08/17 12:54 Dose: 9 unit Metoprolol Tartrate (Lopressor Tab*) 25 mg PO BID [facility] Last Admin: 05/08/17 09:31 Dose: 25 mg Mometasone Furoate/Formoterol Fumar (Dulera 200/5 Mdi*) 2 puff INH BID [facility] Last Admin: 05/08/17 08:51 Dose: 2 puff Nystatin (Nystatin Top Powder*) 1 applic TOPICAL BID PRN PRN Reason: RASH Last Admin: 05/07/17 22:17 Dose: 1 applic Omeprazole (Prilosec Cap*) 20 mg PO BID [facility] Last Admin: 05/08/17 09:31 Dose: 20 mg Ondansetron HCl (Zofran Inj*) 4 mg IV Q6H PRN PRN Reason: NAUSEA Pharmacy Consult (Vancomycin Per Pharmacy*) 1 note FOLLOW UP . PRN PRN Reason: PER PROTOCOL Pharmacy Profile Note (Vancomycin Trough Check) 1 note FOLLOW UP 0530 ONE Stop: 05/10/17 05:31 Potassium Chloride (Klor Con Er Tab*) 20 meq PO DAILY [facility] Last Admin: 05/08/17 09:31 Dose: 20 meq Prednisone (Deltasone Tab*) 20 mg PO DAILY [facility] Last Admin: 05/08/17 09:31 Dose: 20 mg . Vital Signs 05/07/17 05/07/17 05/07/17 17:00 17:59 18:02 Temperature Pulse Rate Respiratory 30 21 Rate Blood Pressure 121/60 (mmHg) O2 Sat by Pulse Oximetry 05/07/17 05/07/17 05/07/17 18:03 18:07 18:15 Temperature 99.2 F Pulse Rate 93 113 102 Respiratory 23 30 24 Rate Blood Pressure 121/60 96/66 (mmHg) O2 Sat by Pulse 97 99 89 Oximetry Appearance: elderly and frail. but improved relative to yesterday. Eyes: No Scleral Icterus Ears/Nose/Mouth/Throat: Clear Oropharnyx Neck: Trachea Midline Respiratory: - - still diffuse rhonchourous sounds. Cardiovascular: NL Sounds; No Murmurs; No JVD Abdominal: NL Sounds; No Tenderness; No Distention Lymphatic: No Cervical Adenopathy Extremities: - - + RLE edema, not new as per patient Neurological: Alert and Oriented x 3 Lines/Tubes/Other Access: Clean, Dry and Intact Peripheral IV Nutrition: Taking PO's Result Diagrams: 05/08/17 05:55 05/08/17 05:55 Additional Lab and Data: . Microbiology and Other Data: Microbiology 05/06/17 21:50 Nasal Screen MRSA (PCR)(NANETTE) - Final Nasal Mrsa Negative Assess/Plan/Problems-Billing . Assessment: 71 yo female with lobar pneumonia and cellulitis in setting of diabetes and chronic prednisone and associated immunosuppression. Current Medications: - Acetaminophen (Tylenol Tab) 650 mg PO Q4H PRN FEVER/PAIN - Albuterol (Ventolin 2.5 Mg/3 Ml Neb.Maranda) 2.5 mg INH Q2H PRN SOB/WHEEZING - Albuterol/Ipratropium (Duoneb (Albuterol 2.5 Mg/Ipratropium 0.5 Mg)) 1 neb INH [id number] AWAKE SANGEETHA - Aspirin (Aspirin Low Dose Tab) 81 mg PO DAILY - Atorvastatin Calcium (Lipitor) 10 mg PO BEDTIME - Dextrose (D50w Syringe 50 Ml) 12.5 gm IV PUSH .FOR FS < 60 - SS PRN FS < 60 - Flecainide Acetate (Tambocor Tab) 50 mg PO BID - NS @ 75 mls/hr IV - Ceftriaxone Sodium 1,000 mg IVPB daily - Vancomycin HCl 1,250 mg (Sodium Chloride) 250 mls @ 166.667 mls/hr IVPB Q12H - Azithromycin 500 mg IVPB daily - Insulin Human Lispro (Humalog) 0 units SUBCUT AC By Protocol - Metoprolol Tartrate (Lopressor Tab) 25 mg PO BID -Mometasone Furoate/Formoterol Fumar (Dulera 200/5 Mdi) 2 puff INH BID - Nystatin (Nystatin Top Powder*) 1 applic TOPICAL BID PRN RASH - Omeprazole (Prilosec Cap*) 20 mg PO BID - Ondansetron HCl (Zofran Inj) 4 mg IV Q6H PRN NAUSEA - Potassium Chloride (Klor Con Er Tab) 20 meq PO DAILY - Prednisone (Deltasone Tab) 20 mg PO DAILY - Tizanidine HCl (Zanaflex Tab) 4 mg PO BID - Patient Problems (1) Pneumonia Current Visit: Yes Status: Acute Priority: High Code(s): J18.9 - PNEUMONIA , UNSPECIFIED ORGANISM Comment: - R baslilar infiltrate, SOB, productive cough, leukocytosis, elevated CRP -- > consistent with clinical pneumonia. - Ceftriaxone Sodium 1,000 mg IVPB daily - Vancomycin HCl 1,250 mg (Sodium Chloride) 250 mls @ 166.667 mls/hr IVPB Q12H - Azithromycin 500 mg IVPB daily - BCX pending - gentle IVF (2) Cellulitis, neck Current Visit: Yes Status: Acute Priority: High Code(s): L03.221 - CELLULITIS OF NECK Comment: - IV vanco will cover pulmonary pathogens as well as skin kaylah. (3) Cutaneous candidiasis Current Visit: Yes Status: Acute Priority: High Code(s): B37.2 - CANDIDIASIS OF SKIN AND NAIL Comment: - Nystatin as ordered. - could present entry for cellulitis (skin breakdown) (4) Immunocompromised Current Visit: Yes Status: Acute Priority: High Code(s): D84.9 - IMMUNODEFICIENCY, UNSPECIFIED Comment: - secondary to GCA/prednisone + diabetes. (5) Giant cell arteritis Current Visit: No Status: Chronic Code(s): M31.6 - OTHER GIANT CELL ARTERITIS SNOMED Code(s): 938670506 Comment: Dependent on 20mg daily She was not stress dosed at admission, no associated sepsis or other hemodynamic instability (6) COPD (chronic obstructive pulmonary disease) Current Visit: Yes Status: Chronic Priority: High Code(s): J44.9 - CHRONIC OBSTRUCTIVE PULMONARY DISEASE, UNSPECIFIED Comment: - certainly a chronic CO2 retainer, but CO2 of 89 is greater than normal, likely secondary to the increased demands relating to her pneumonia. - on prednisone, chronically. Got extra dose of hydrocortisone when patient was a bit letheragic (later found to be most likely 2/2 elevated CO2 level) (7) RADHA (obstructive sleep apnea) Current Visit: Yes Status: Chronic Priority: High Code(s): G47.33 - OBSTRUCTIVE SLEEP APNEA (ADULT) (PEDIATRIC) Comment: Patient now accepts use of CPAP/BiPAP
[2017-05-08] MEDS: cefTRIAXone VIAL(*) 1,000 MG in NS 0.9% 50 ML* 50 ML IVPB SCH (20:38)
[2017-05-08] MEDS: Atorvastatin* 10 MG TAB PO SCH (21:48)
[2017-05-09] MEDS: Azithromycin IV(*) 500 MG in NS 0.9% 250 ML* 250 ML IVPB SCH (02:20)
[2017-05-09] MEDS: Vancomycin(*) 1,000 MG in NS 0.9% 250 ML* 250 ML IVPB SCH ×2 (05:25→17:23)
[2017-05-09 05:26] LABS: Hematocrit 31 % (35-47); Hemoglobin 9.9 g/dl (12.0-16.0); Mean Corpuscular HGB Conc 32 g/dl (31-36); Mean Corpuscular Hemoglobin 31 pg (27-31); Mean Corpuscular Volume 96 fL (80-97); Mean Platelet Volume 8 um3 (7.4-10.4); Red Blood Count 3.24 10^6/ul (4.0-5.4); Red Cell Distribution Width 15 % (10.5-15); White Blood Count 12.5 10^3/ul (3.5-10.8)
[2017-05-09 05:35] LABS: Add Diff/Slide Review? Slide Review Added; Comments Flag Yes
[2017-05-09 05:56] LABS: BUN/Creatinine Ratio 21.1 (8-20); Calcium 8.8 mg/dL (8.6-10.3); EGFR African American 79.6 (>60); EGFR Non-African American 61.9 (>60); Potassium 4.2 mmol/L (3.5-5.0)
[2017-05-09] MEDS: Mometasone/Formoter 200/5 MDI INH SCH ×2 (08:47→19:38)
[2017-05-09] MEDS: Flecainide TAB* 100 MG PO SCH ×2 (09:43→21:22)
[2017-05-09] MEDS: Omeprazole CAP* 20 MG PO SCH ×2 (09:44→21:23)
[2017-05-09] MEDS: predniSONE TAB* 20 MG PO SCH (09:44)
[2017-05-09] MEDS: Aspirin Low Dose CHEW TAB* 81 MG PO SCH (09:44)
[2017-05-09] MEDS: Metoprolol Tartrate TAB* 25 MG PO SCH ×2 (09:44→21:23)
[2017-05-09] MEDS: Potassium Chlor TAB* 20 MEQ TAB.ER PO SCH (09:44)
[2017-05-09] MEDS: Insulin LISPRO* 1 UNITS UNIT SUBCUT SCH ×4 (09:45→21:24)
--- NOTE | 2017-05-09 20:07 | PN ---
Subjective Date of Service: 05/09/17 Interval History: . patient and family agreeable to short term rehab applications sent to [facility]... Patinet breathing easier...on medical floor...eating ok...but weak and de- conditioned. . Family History: Unchanged from Admission Social History: Unchanged from Admission Past Medical History: Unchanged from Admission Objective Active Medications: . Acetaminophen (Tylenol Tab*) 650 mg PO Q4H PRN PRN Reason: FEVER/PAIN Last Admin: 05/09/17 09:44 Dose: 650 mg Albuterol (Ventolin 2.5 Mg/3 Ml Neb.Maranda*) 2.5 mg INH Q2H PRN PRN Reason: SOB/WHEEZING Aspirin (Aspirin Low Dose Tab*) 81 mg PO DAILY [facility] Last Admin: 05/09/17 09:44 Dose: 81 mg Atorvastatin Calcium (Lipitor*) 10 mg PO BEDTIME SANGEETHA PRN Reason: Protocol Last Admin: 05/08/17 21:48 Dose: 10 mg Dextrose (D50w Syringe 50 Ml*) 12.5 gm IV PUSH .FOR FS < 60 - SS PRN PRN Reason: FS < 60 Flecainide Acetate (Tambocor Tab*) 50 mg PO BID [facility] Last Admin: 05/09/17 09:43 Dose: 50 mg Ceftriaxone Sodium 1,000 mg/ (Sodium Chloride) 50 mls @ 200 mls/hr IVPB 2030 [facility] Last Admin: 05/08/17 20:38 Dose: 200 mls/hr Azithromycin 500 mg/ Sodium (Chloride) 250 mls @ 250 mls/hr IVPB 0230 [facility] Last Admin: 05/09/17 02:20 Dose: 250 mls/hr Vancomycin HCl 1,000 mg/ (Sodium Chloride) 250 mls @ 166.667 mls/hr IVPB Q12H [facility] Last Admin: 05/09/17 17:23 Dose: 166.667 mls/hr Insulin Human Lispro (Humalog*) 0 units SUBCUT ACHS SANGEETHA PRN Reason: Protocol Last Admin: 05/09/17 16:54 Dose: 9 unit Metoprolol Tartrate (Lopressor Tab*) 25 mg PO BID [facility] Last Admin: 05/09/17 09:44 Dose: 25 mg Mometasone Furoate/Formoterol Fumar (Dulera 200/5 Mdi*) 2 puff INH BID [facility] Last Admin: 05/09/17 19:38 Dose: 2 puff Nystatin (Nystatin Top Powder*) 1 applic TOPICAL BID PRN PRN Reason: RASH Last Admin: 05/07/17 22:17 Dose: 1 applic Omeprazole (Prilosec Cap*) 20 mg PO BID [facility] Last Admin: 05/09/17 09:44 Dose: 20 mg Ondansetron HCl (Zofran Inj*) 4 mg IV Q6H PRN PRN Reason: NAUSEA Pharmacy Consult (Vancomycin Per Pharmacy*) 1 note FOLLOW UP . PRN PRN Reason: PER PROTOCOL Pharmacy Profile Note (Vancomycin Trough Check) 1 note FOLLOW UP 0530 ONE Stop: 05/10/17 05:31 Potassium Chloride (Klor Con Er Tab*) 20 meq PO DAILY [facility] Last Admin: 05/09/17 09:44 Dose: 20 meq Prednisone (Deltasone Tab*) 20 mg PO DAILY [facility] Last Admin: 05/09/17 09:44 Dose: 20 mg Vital Signs 05/08/17 05/08/17 05/08/17 21:39 21:40 22:37 Temperature Pulse Rate 96 Respiratory 20 22 Rate Blood Pressure (mmHg) O2 Sat by Pulse 92 92 Oximetry 05/09/17 05/09/17 05/09/17 00:18 03:56 07:19 Temperature 97.8 F 96.4 F 98.3 F Pulse Rate 69 82 91 Respiratory 20 24 Rate Blood Pressure 106/58 111/67 116/61 (mmHg) O2 Sat by Pulse 92 91 91 Oximetry Oxygen Devices in Use Now: Nasal Cannula Appearance: elderly and frail. Ears/Nose/Mouth/Throat: Clear Oropharnyx Neck: NL Appearance and Movements; NL JVP Respiratory: Symmetrical Chest Expansion and Respiratory Effort Cardiovascular: NL Sounds; No Murmurs; No JVD Abdominal: NL Sounds; No Tenderness; No Distention, - - obese Lymphatic: No Cervical Adenopathy Extremities: - - R>L edema, old. Skin: No Rash or Ulcers Neurological: Alert and Oriented x 3 Lines/Tubes/Other Access: Clean, Dry and Intact Peripheral IV Nutrition: Taking PO's Result Diagrams: 05/09/17 05:01 05/09/17 04:42 Additional Lab and Data: . Microbiology and Other Data: Microbiology 05/06/17 21:50 Nasal Screen MRSA (PCR)(NANETTE) - Final Nasal Mrsa Negative Assess/Plan/Problems-Billing . Assessment: 71 yo female with lobar pneumonia and cellulitis in setting of diabetes and chronic prednisone and associated immuno-suppression. Current Medications: - Acetaminophen (Tylenol Tab) 650 mg PO Q4H PRN FEVER/PAIN - Albuterol (Ventolin 2.5 Mg/3 Ml Neb.Maranda) 2.5 mg INH Q2H PRN SOB/WHEEZING - Albuterol/Ipratropium (Duoneb (Albuterol 2.5 Mg/Ipratropium 0.5 Mg)) 1 neb INH RT.[id number] AWAKE SANGEETHA - Aspirin (Aspirin Low Dose Tab) 81 mg PO DAILY - Atorvastatin Calcium (Lipitor) 10 mg PO BEDTIME - Dextrose (D50w Syringe 50 Ml) 12.5 gm IV PUSH .FOR FS < 60 - SS PRN FS < 60 - Flecainide Acetate (Tambocor Tab) 50 mg PO BID - NS @ 75 mls/hr IV - Ceftriaxone Sodium 1,000 mg IVPB daily - Vancomycin HCl 1,250 mg (Sodium Chloride) 250 mls @ 166.667 mls/hr IVPB Q12H - Azithromycin 500 mg IVPB daily - Insulin Human Lispro (Humalog) 0 units SUBCUT AC By Protocol - Metoprolol Tartrate (Lopressor Tab) 25 mg PO BID -Mometasone Furoate/Formoterol Fumar (Dulera 200/5 Mdi) 2 puff INH BID - Nystatin (Nystatin Top Powder*) 1 applic TOPICAL BID PRN RASH - Omeprazole (Prilosec Cap*) 20 mg PO BID - Ondansetron HCl (Zofran Inj) 4 mg IV Q6H PRN NAUSEA - Potassium Chloride (Klor Con Er Tab) 20 meq PO DAILY - Prednisone (Deltasone Tab) 20 mg PO DAILY - Tizanidine HCl (Zanaflex Tab) 4 mg PO BID - Patient Problems (1) Pneumonia Current Visit: Yes Status: Acute Priority: High Code(s): J18.9 - PNEUMONIA , UNSPECIFIED ORGANISM Comment: - R baslilar infiltrate, SOB, productive cough, leukocytosis, elevated CRP -- > consistent with clinical pneumonia. - Ceftriaxone Sodium 1,000 mg IVPB daily - Vancomycin HCl 1,250 mg (Sodium Chloride) 250 mls @ 166.667 mls/hr IVPB Q12H - Azithromycin 500 mg IVPB daily - BCX pending - gentle IVF (2) Cellulitis, neck Current Visit: Yes Status: Acute Priority: High Code(s): L03.221 - CELLULITIS OF NECK Comment: - IV vanco will cover pulmonary pathogens as well as skin kaylah. (3) Cutaneous candidiasis Current Visit: Yes Status: Acute Priority: High Code(s): B37.2 - CANDIDIASIS OF SKIN AND NAIL Comment: - Nystatin as ordered. - could present entry for cellulitis (skin breakdown) (4) Immunocompromised Current Visit: Yes Status: Acute Priority: High Code(s): D84.9 - IMMUNODEFICIENCY, UNSPECIFIED Comment: - secondary to GCA/prednisone + diabetes. (5) Giant cell arteritis Current Visit: No Status: Chronic Code(s): M31.6 - OTHER GIANT CELL ARTERITIS SNOMED Code(s): 862012648 Comment: Dependent on 20mg daily She was not stress dosed at admission, no associated sepsis or other hemodynamic instability (6) COPD (chronic obstructive pulmonary disease) Current Visit: Yes Status: Chronic Priority: High Code(s): J44.9 - CHRONIC OBSTRUCTIVE PULMONARY DISEASE, UNSPECIFIED Comment: - certainly a chronic CO2 retainer, but CO2 of 89 is greater than normal, likely secondary to the increased demands relating to her pneumonia. - on prednisone, chronically. Got extra dose of hydrocortisone when patient was a bit letheragic (later found to be most likely 2/2 elevated CO2 level) (7) RADHA (obstructive sleep apnea) Current Visit: Yes Status: Chronic Priority: High Code(s): G47.33 - OBSTRUCTIVE SLEEP APNEA (ADULT) (PEDIATRIC) Comment: Patient now accepts use of CPAP/BiPAP
[2017-05-09] MEDS: cefTRIAXone VIAL(*) 1,000 MG in NS 0.9% 50 ML* 50 ML IVPB SCH (20:26)
[2017-05-09] MEDS: Atorvastatin* 10 MG TAB PO SCH (21:22)
[2017-05-10] MEDS: Azithromycin IV(*) 500 MG in NS 0.9% 250 ML* 250 ML IVPB SCH (02:39)
[2017-05-10] MEDS ORDERED: Vancomycin Trough Check NOTE FOLLOW UP ONE (05:30)
[2017-05-10 05:51] LABS: EGFR African American 111.9 (>60)
[2017-05-10 06:22] LABS: Vancomycin Trough 19.8 mcg/mL
[2017-05-10] MEDS ORDERED: NS 0.9% 250 ML* 250 ML ONE (08:06)
[2017-05-10] MEDS: Vancomycin(*) 1,000 MG in NS 0.9% 250 ML* 250 ML IVPB SCH (08:14)
[2017-05-10] MEDS: Flecainide TAB* 100 MG PO SCH ×2 (08:17→20:42)
[2017-05-10] MEDS: Potassium Chlor TAB* 20 MEQ TAB.ER PO SCH (08:17)
[2017-05-10] MEDS: Omeprazole CAP* 20 MG PO SCH ×2 (08:18→20:42)
[2017-05-10] MEDS: Aspirin Low Dose CHEW TAB* 81 MG PO SCH (08:18)
[2017-05-10] MEDS: Metoprolol Tartrate TAB* 25 MG PO SCH ×2 (08:18→20:42)
[2017-05-10] MEDS: predniSONE TAB* 20 MG PO SCH (08:18)
[2017-05-10] MEDS: Mometasone/Formoter 200/5 MDI INH SCH ×2 (08:42→21:40)
[2017-05-10] MEDS ORDERED: Vancomycin(*) 750 MG in NS 0.9% 250 ML* 250 ML IVPB SCH ×2 (08:57→18:00)
[2017-05-10] MEDS: Insulin LISPRO* 1 UNITS UNIT SUBCUT SCH ×4 (09:20→20:48)
--- NOTE | 2017-05-10 09:53 | PN ---
Subjective Date of Service: 05/10/17 Interval History: Pt is feeling better. She still feels weak and has only been standing and pivoting so far this hospitalization. She states her breathing is comfortable. She is not coughing up as much sputum. She had a BM this AM. Family History: Unchanged from Admission Social History: Unchanged from Admission Past Medical History: Unchanged from Admission Objective Active Medications: Acetaminophen (Tylenol Tab*) 650 mg PO Q4H PRN PRN Reason: FEVER/PAIN Last Admin: 05/09/17 09:44 Dose: 650 mg Albuterol (Ventolin 2.5 Mg/3 Ml Neb.Maranda*) 2.5 mg INH Q2H PRN PRN Reason: SOB/WHEEZING Aspirin (Aspirin Low Dose Tab*) 81 mg PO DAILY [facility] Last Admin: 05/10/17 08:18 Dose: 81 mg Atorvastatin Calcium (Lipitor*) 10 mg PO BEDTIME SANGEETHA PRN Reason: Protocol Last Admin: 05/09/17 21:22 Dose: 10 mg Dextrose (D50w Syringe 50 Ml*) 12.5 gm IV PUSH .FOR FS < 60 - SS PRN PRN Reason: FS < 60 Flecainide Acetate (Tambocor Tab*) 50 mg PO BID [facility] Last Admin: 05/10/17 08:17 Dose: 50 mg Ceftriaxone Sodium 1,000 mg/ (Sodium Chloride) 50 mls @ 200 mls/hr IVPB 2030 [facility] Last Admin: 05/09/17 20:26 Dose: 200 mls/hr Azithromycin 500 mg/ Sodium (Chloride) 250 mls @ 250 mls/hr IVPB 0230 [facility] Last Admin: 05/10/17 02:39 Dose: 250 mls/hr Vancomycin HCl 750 mg/ Sodium (Chloride) 250 mls @ 166.667 mls/hr IVPB 0600, 1800 [facility] Insulin Human Lispro (Humalog*) 0 units SUBCUT ACHS SANGEETHA PRN Reason: Protocol Last Admin: 05/10/17 09:20 Dose: Not Given Metoprolol Tartrate (Lopressor Tab*) 25 mg PO BID [facility] Last Admin: 05/10/17 08:18 Dose: 25 mg Mometasone Furoate/Formoterol Fumar (Dulera 200/5 Mdi*) 2 puff INH BID [facility] Last Admin: 05/10/17 08:42 Dose: 2 puff Nystatin (Nystatin Top Powder*) 1 applic TOPICAL BID PRN PRN Reason: RASH Last Admin: 05/07/17 22:17 Dose: 1 applic Omeprazole (Prilosec Cap*) 20 mg PO BID [facility] Last Admin: 05/10/17 08:18 Dose: 20 mg Ondansetron HCl (Zofran Inj*) 4 mg IV Q6H PRN PRN Reason: NAUSEA Pharmacy Consult (Vancomycin Per Pharmacy*) 1 note FOLLOW UP . PRN PRN Reason: PER PROTOCOL Pharmacy Profile Note (Vancomycin Trough Check) 1 note FOLLOW UP 0600 ONE Stop: 05/12/17 06:01 Potassium Chloride (Klor Con Er Tab*) 20 meq PO DAILY [facility] Last Admin: 05/10/17 08:17 Dose: 20 meq Prednisone (Deltasone Tab*) 20 mg PO DAILY [facility] Last Admin: 05/10/17 08:18 Dose: 20 mg Vital Signs 05/09/17 05/09/17 05/09/17 11:54 15:27 18:59 Temperature 98.8 F 99.0 F 99.3 F Pulse Rate 78 84 92 Respiratory 22 18 20 Rate Blood Pressure 104/64 120/60 118/63 (mmHg) O2 Sat by Pulse 92 96 90 Oximetry 05/09/17 05/09/17 05/09/17 19:40 20:00 23:39 Temperature 98.7 F Pulse Rate 84 84 Respiratory 18 21 20 Rate Blood Pressure 90/61 (mmHg) O2 Sat by Pulse 96 94 93 Oximetry 05/09/17 05/10/17 05/10/17 23:41 03:34 07:52 Temperature 96.5 F 98.5 F Pulse Rate 87 86 Respiratory 20 24 Rate Blood Pressure 114/59 105/63 (mmHg) O2 Sat by Pulse 94 93 92 Oximetry 05/10/17 08:44 Temperature Pulse Rate 79 Respiratory 20 Rate Blood Pressure (mmHg) O2 Sat by Pulse 92 Oximetry Oxygen Devices in Use Now: Nasal Cannula - 92%-3L Appearance: Elderly obese female sitting on the commode, NAD Eyes: No Scleral Icterus Ears/Nose/Mouth/Throat: Mucous Membranes Moist Respiratory: Symmetrical Chest Expansion and Respiratory Effort, Clear to Auscultation - few RLL crackles Cardiovascular: NL Sounds; No Murmurs; No JVD, RRR, No Edema Abdominal: NL Sounds; No Tenderness; No Distention Extremities: No Clubbing, Cyanosis Skin: No Rash or Ulcers, No Nodules or Sclerosis Neurological: Alert and Oriented x 3 Result Diagrams: 05/09/17 05:01 05/10/17 05:17 Additional Lab and Data: . Microbiology and Other Data: Microbiology 05/06/17 21:50 Nasal Screen MRSA (PCR)(NANETTE) - Final Nasal Mrsa Negative Assess/Plan/Problems-Billing Ms Melton is a 71 yo F who has a h/o COPD (O2 dependent), giant cell arteritis on chronic prednisone 20mg/day, afib, HLD and CKD stage II who presented to the ER with c/o cough with green sputum and was admitted for treatment of CAP and cellulitis of the neck. - Patient Problems (1) Pneumonia Current Visit: Yes Status: Acute Code(s): J18.9 - PNEUMONIA, UNSPECIFIED ORGANISM SNOMED Code(s): 158868316 Comment: ? RML and LLL infiltrates. She has had 4 doses of ceftriaxone and azithromycin (totalling 2g). Will stop the IV medications and change augmentin for 3 more days. Sputum culture has not been able to be run as she has many epithelial cells present in the sample indication oral contamination. Clinically she has improved and is ready for STR. (2) Cellulitis, neck Current Visit: Yes Status: Acute Code(s): L03.221 - CELLULITIS OF NECK SNOMED Code(s): 29842720 Comment: No significant erythema to the neck any longer. Stop vanco as pt has no history of MRSA and in fact her nasal swab was negative. Will change to augmentin for coverage of both her pneumonia and cellulitis. (3) COPD (chronic obstructive pulmonary disease) Current Visit: Yes Status: Chronic Priority: High Code(s): J44.9 - CHRONIC OBSTRUCTIVE PULMONARY DISEASE, UNSPECIFIED SNOMED Code(s): 71470716 Comment: The patient is O2 dependent for her chronic hypoxic respiratory failure secondary to COPD. Her CO2 elevation early on this hospitalization was likely related to her decompensating from the pneumonia. I do not think she needs BiPAP moving forward unless she repeatedly shows that she is hypercarbic and not compensated. (4) Giant cell arteritis Current Visit: No Status: Chronic Code(s): M31.6 - OTHER GIANT CELL ARTERITIS SNOMED Code(s): 950926766 Comment: The patient remains on prednisone 20mg daily. (5) Type 2 diabetes mellitus Current Visit: Yes Status: Chronic Comment: Last A1c was 7.9%. She does not appear to be on any oral agents and uses only lispro via sliding scale at home. Will confirm this with the patient as this is not a usual outpatient regimen. (6) Atrial fibrillation Current Visit: Yes Status: Chronic Code(s): I48.91 - UNSPECIFIED ATRIAL FIBRILLATION SNOMED Code(s): 80661236 Comment: The patient remains in NSR with flecanide. She is not on anticoagulation as she has a h/o life threatening bleeds in the past. (7) HLD (hyperlipidemia) Current Visit: Yes Status: Acute Code(s): E78.5 - HYPERLIPIDEMIA, UNSPECIFIED SNOMED Code(s): 16625924 Comment: Continue lipitor. (8) DVT prophylaxis Current Visit: Yes Status: Acute Code(s): [id number] - SNOMED Code(s): 907305074 Comment: SCDs only given h/o life threatening bleeds related to anticoagulants in the past (9) Patient is full code Current Visit: Yes Status: Acute Onset Date: 09/08/15 Code(s): Z78.9 - OTHER SPECIFIED HEALTH STATUS SNOMED Code(s): 355136657
[2017-05-10] MEDS: Atorvastatin* 10 MG TAB PO SCH (20:43)
[2017-05-10] MEDS: Amoxicillin/Clavulanate TAB* 500 MG PO SCH (20:43)
[2017-05-10] MEDS: cefTRIAXone VIAL(*) 1,000 MG in NS 0.9% 50 ML* 50 ML IVPB SCH (20:44)
[2017-05-11 07:32] VITALS: BP 121/68
[2017-05-11] MEDS: Mometasone/Formoter 200/5 MDI INH SCH (08:10)
[2017-05-11] MEDS: Insulin LISPRO* 1 UNITS UNIT SUBCUT SCH ×2 (08:24→13:12)
[2017-05-11] MEDS: Amoxicillin/Clavulanate TAB* 500 MG PO SCH (08:25)
[2017-05-11] MEDS: Aspirin Low Dose CHEW TAB* 81 MG PO SCH (08:25)
[2017-05-11] MEDS: Potassium Chlor TAB* 20 MEQ TAB.ER PO SCH (08:25)
[2017-05-11] MEDS: Omeprazole CAP* 20 MG PO SCH (08:25)
[2017-05-11] MEDS: Metoprolol Tartrate TAB* 25 MG PO SCH (08:25)
[2017-05-11] MEDS: Flecainide TAB* 100 MG PO SCH (08:25)
[2017-05-11] MEDS: predniSONE TAB* 20 MG PO SCH (08:25)
--- NOTE | 2017-05-11 11:13 | PN ---
Subjective Date of Service: 05/11/17 Interval History: Pt is feeling well. She is ready for d/c to [facility] today. She denies any pain. No more SOB than usual. No diarrhea. Family History: Unchanged from Admission Social History: Unchanged from Admission Past Medical History: Unchanged from Admission Objective Active Medications: Acetaminophen (Tylenol Tab*) 650 mg PO Q4H PRN PRN Reason: FEVER/PAIN Last Admin: 05/09/17 09:44 Dose: 650 mg Albuterol (Ventolin 2.5 Mg/3 Ml Neb.Maranda*) 2.5 mg INH Q2H PRN PRN Reason: SOB/WHEEZING Amoxicillin/Clavulanate Potassium (Augmentin Tab*) 500 mg PO BID [facility] Last Admin: 05/11/17 08:25 Dose: 500 mg Aspirin (Aspirin Low Dose Tab*) 81 mg PO DAILY [facility] Last Admin: 05/11/17 08:25 Dose: 81 mg Atorvastatin Calcium (Lipitor*) 10 mg PO BEDTIME S[place] PRN Reason: Protocol Last Admin: 05/10/17 20:43 Dose: 10 mg Dextrose (D50w Syringe 50 Ml*) 12.5 gm IV PUSH .FOR FS < 60 - SS PRN PRN Reason: FS < 60 Flecainide Acetate (Tambocor Tab*) 50 mg PO BID [facility] Last Admin: 05/11/17 08:25 Dose: 50 mg Ceftriaxone Sodium 1,000 mg/ (Sodium Chloride) 50 mls @ 200 mls/hr IVPB 2030 [facility] Last Admin: 05/10/17 20:44 Dose: 200 mls/hr Insulin Human Lispro (Humalog*) 0 units SUBCUT ACHS [facility] PRN Reason: Protocol Last Admin: 05/11/17 08:24 Dose: 2 unit Metoprolol Tartrate (Lopressor Tab*) 25 mg PO BID [facility] Last Admin: 05/11/17 08:25 Dose: 25 mg Mometasone Furoate/Formoterol Fumar (Dulera 200/5 Mdi*) 2 puff INH BID [facility] Last Admin: 05/11/17 08:10 Dose: 2 puff Nystatin (Nystatin Top Powder*) 1 applic TOPICAL BID PRN PRN Reason: RASH Last Admin: 05/07/17 22:17 Dose: 1 applic Omeprazole (Prilosec Cap*) 20 mg PO BID [facility] Last Admin: 05/11/17 08:25 Dose: 20 mg Ondansetron HCl (Zofran Inj*) 4 mg IV Q6H PRN PRN Reason: NAUSEA Potassium Chloride (Klor Con Er Tab*) 20 meq PO DAILY [facility] Last Admin: 05/11/17 08:25 Dose: 20 meq Prednisone (Deltasone Tab*) 20 mg PO DAILY [facility] Last Admin: 05/11/17 08:25 Dose: 20 mg Vital Signs 05/10/17 05/10/17 05/10/17 11:11 15:23 19:30 Temperature 98.6 F 98.4 F Pulse Rate 75 77 Respiratory 22 20 20 Rate Blood Pressure 106/58 116/63 (mmHg) O2 Sat by Pulse 95 96 Oximetry 05/10/17 05/10/17 05/11/17 20:03 21:43 00:13 Temperature 98.8 F 97.2 F Pulse Rate 97 86 82 Respiratory 26 18 24 Rate Blood Pressure 116/58 113/61 (mmHg) O2 Sat by Pulse 94 97 90 Oximetry 05/11/17 05/11/17 05/11/17 04:55 07:12 08:00 Temperature 98.6 F 98.4 F Pulse Rate 85 84 Respiratory 16 22 18 Rate Blood Pressure 111/61 121/68 (mmHg) O2 Sat by Pulse 91 96 Oximetry 05/11/17 08:10 Temperature Pulse Rate Respiratory Rate Blood Pressure (mmHg) O2 Sat by Pulse 94 Oximetry Oxygen Devices in Use Now: Nasal Cannula - 94%-3L Appearance: Elderly obese female sitting up in recliner chair, NAD Eyes: No Scleral Icterus Ears/Nose/Mouth/Throat: Mucous Membranes Moist Respiratory: Symmetrical Chest Expansion and Respiratory Effort, Clear to Auscultation Cardiovascular: NL Sounds; No Murmurs; No JVD, RRR, No Edema Abdominal: NL Sounds; No Tenderness; No Distention Extremities: No Clubbing, Cyanosis Skin: No Rash or Ulcers, No Nodules or Sclerosis, - - Neck without any significant erythema, few lesions that appear pt picked at Neurological: Alert and Oriented x 3 Result Diagrams: 05/09/17 05:01 05/10/17 05:17 Additional Lab and Data: . Microbiology and Other Data: Microbiology 05/06/17 21:50 Nasal Screen MRSA (PCR)(NANETTE) - Final Nasal Mrsa Negative Assess/Plan/Problems-Billing Ms Melton is a 71 yo F who has a h/o COPD (O2 dependent), giant cell arteritis on chronic prednisone 20mg/day, afib, HLD and CKD stage II who presented to the ER with c/o cough with green sputum and was admitted for treatment of CAP and cellulitis of the neck. - Patient Problems (1) Pneumonia Current Visit: Yes Status: Acute Code(s): J18.9 - PNEUMONIA, UNSPECIFIED ORGANISM SNOMED Code(s): 098728373 Comment: Continue augmentin for the next 2 days. She is ready fo d/c to [facility] today. (2) Cellulitis, neck Current Visit: Yes Status: Acute Code(s): L03.221 - CELLULITIS OF NECK SNOMED Code(s): 66498358 Comment: Resolved. She will be on augmentin for 2 more days. I have encouraged her to stop picking. (3) COPD (chronic obstructive pulmonary disease) Current Visit: Yes Status: Chronic Priority: High Code(s): J44.9 - CHRONIC OBSTRUCTIVE PULMONARY DISEASE, UNSPECIFIED SNOMED Code(s): 37701602 Comment: The patient is O2 dependent for her chronic hypoxic respiratory failure secondary to COPD. No signs of exacerbation at this time. (4) Giant cell arteritis Current Visit: Yes Status: Chronic Code(s): M31.6 - OTHER GIANT CELL ARTERITIS SNOMED Code(s): 117876481 Comment: The patient remains on prednisone 20mg daily. (5) Type 2 diabetes mellitus Current Visit: Yes Status: Chronic Comment: A1c remains 7.9%. She is on lantus 10 units at bedtime and sliding scale. Will increase the lantus to 12 units nightly. (6) Atrial fibrillation Current Visit: Yes Status: Chronic Code(s): I48.91 - UNSPECIFIED ATRIAL FIBRILLATION SNOMED Code(s): 09847428 Comment: The patient remains in NSR with flecanide. She is not on anticoagulation as she has a h/o life threatening bleeds in the past. (7) HLD (hyperlipidemia) Current Visit: Yes Status: Acute Code(s): E78.5 - HYPERLIPIDEMIA, UNSPECIFIED SNOMED Code(s): 24641142 Comment: Continue lipitor. (8) DVT prophylaxis Current Visit: Yes Status: Acute Code(s): UVP2516 - SNOMED Code(s): 110056068 Comment: SCDs only given h/o life threatening bleeds related to anticoagulants in the past (9) Patient is full code Current Visit: Yes Status: Acute Onset Date: 09/08/15 Code(s): Z78.9 - OTHER SPECIFIED HEALTH STATUS SNOMED Code(s): 696722538 Status and Disposition: d/c to [facility]
--- NOTE | 2017-05-11 12:17 | DS ---
CC: Dr. Yuliya Pike * DATE OF ADMISSION: 05/06/2017. DATE OF DISCHARGE: 05/11/2017. PRIMARY CARE PROVIDER: Dr. Yuliya Pike. PRINCIPAL DIAGNOSIS: 1. Right middle lobe/right lower lobe community-acquired pneumonia. 2. Left neck cellulitis - resolved. SECONDARY DIAGNOSES: 1. Type 2 diabetes. 2. Atrial fibrillation. 3. COPD - O2 dependent with chronic hypoxic respiratory failure. DISCHARGE MEDICATIONS: 1. Tylenol 500 mg p.o. q.6 hours prn pain. 2. Augmentin 500 mg p.o. b.i.d. times 4 doses. 3. Aspirin 81 mg p.o. daily. 4. Vitamin D 1000 units p.o. daily. 5. Vitamin B12 1000 mcg p.o. daily. 6. Benadryl 50 mg p.o. q.6 hours prn itching. 7. Flecainide 50 mg p.o. b.i.d. 8. Lasix 40 mg p.o. daily. 9. Lantus 10 units subcutaneous at bedtime. 10. Lispro 0 to 30 units subcutaneous q.a.c. via sliding scale. 11. Claritin D one tab p.o. daily. 12. Magnesium oxide 400 mg p.o. daily. 13. Metoprolol Tartrate 25 mg p.o. b.i.d. 14. Multivitamin one tab p.o. daily. 15. Nystatin applied twice daily to breanna intertrigo. 16. Omeprazole 20 mg p.o. b.i.d. 17. Potassium Chloride 20 mEq p.o. daily. 18. Pravastatin 40 mg p.o. at bedtime. 19. Prednisone 20 mg p.o. daily. 20. Psyllium one packet p.o. daily. 21. Tizanidine 4 mg p.o. b.i.d. HOSPITAL COURSE: Ms. Melton is a 71-year-old, morbidly obese female who presented to the emergency room on 05/06/2017 with complaints of cough. The patient developed progressively worsening cough over a couple weeks prior to admission. In addition, she has been coughing up green sputum and then more and more short of breath. She had also been complaining of chills off and on at home. The patient was found to have an x-ray with concerns for a right middle and right lower lobe pneumonia. The patient was admitted and started on Ceftriaxone and Azithromycin for her community-acquired pneumonia. She was continued on her usual dose of steroids 20 mg a day; however, it was felt that if she decompensated, she would need to be started on stress dose steroids. This never turned out to be the case. Additionally, the patient was found to have a cellulitis on the left side of her neck. It appears that she has been picking this area. In addition to the Ceftriaxone and the Azithromycin, she was started on Vancomycin; however, as she has no history of MRSA and her nasal swab was negative, the decision was made to stop this. The patient has been switched to Augmentin 500 mg p.o. twice daily for another two days. Overall, the patient is much improved; however, she appears to have deconditioned and it has been recommended to go to subacute rehab on discharge. The patient has agreed to this and has accepted a bed offer for [facility] today, 05/11/2017. In terms of the patient's chronic medical conditions, her diabetes is under fair control with an A1c of 7.9 percent. She remains on Lantus 10 units subcutaneous at bedtime. She also continues on Lispro sliding scale. The patient has been continued on her usual dose of Prednisone and this will be maintained. In terms of the patient's COPD, her respiratory status was relatively stable. She did have mild hypercarbia on admission requiring BiPAP; however, this was felt to be decompensation related to her pneumonia. The patient has no longer needed BiPAP and has done quite well. There are no signs of exacerbation at this point. The patient has otherwise been maintained on all of her usual home medications. FOLLOW-UP CONCERNS: The patient is being discharged to [facility] today, . ACTIVITY LEVEL: As tolerated. DIET: Diabetic, heart-healthy. CONDITION ON DISCHARGE: Stable. Thirty-five minutes were spent discharging this patient. [id number] #: [id number] JOSE ANGEL
[2017-05-12] MEDS ORDERED: Vancomycin Trough Check NOTE FOLLOW UP ONE (06:00)
== END 2017-05-11 13:20 | DRG 602 ==
LOC: ED 16:43 → MEDTELE 18:59 → ICU 05-07 18:25 → MEDTELE 05-08 12:19
PROVIDERS: ADMIT Internal Medicine; ATTEND Hospitalist
DX: L03.221 Cellulitis of neck (principal); J18.9 Pneumonia, unspecified organism; J96.11 Chronic respiratory failure with hypoxia; I50.30 Unspecified diastolic (congestive) heart failure; E11.22 Type 2 diabetes mellitus with diabetic chronic kidney disease; M31.6 Other giant cell arteritis; Z68.41 Body mass index [BMI] 40.0-44.9, adult; I48.91 Unspecified atrial fibrillation; J44.9 Chronic obstructive pulmonary disease, unspecified; E66.01 Morbid (severe) obesity due to excess calories; N18.2 Chronic kidney disease, stage 2 (mild); G47.33 Obstructive sleep apnea (adult) (pediatric); Z99.81 Dependence on supplemental oxygen; Z86.718 Personal history of other venous thrombosis and embolism; Z86.711 Personal history of pulmonary embolism; Z86.73 Personal history of transient ischemic attack (TIA), and cerebral infarction without residual deficits; Z79.82 Long term (current) use of aspirin; Z79.1 Long term (current) use of non-steroidal anti-inflammatories (NSAID); Z79.4 Long term (current) use of insulin; Z79.52 Long term (current) use of systemic steroids; Z79.899 Other long term (current) drug therapy; Z88.1 Allergy status to other antibiotic agents; Z88.8 Allergy status to other drugs, medicaments and biological substances; Z91.012 Allergy to eggs; Z82.3 Family history of stroke; Z82.49 Family history of ischemic heart disease and other diseases of the circulatory system; Z87.891 Personal history of nicotine dependence
CPT/HCPCS: 36415; 36600; 71010; 71020; 80048; 80053; 80202; 82550; 82565; 82803; 83036; 83605; 83880; 84484; 84520; 85025; 85060; 85730; 86140; 87040; 87205; 87641; 87899; 93005; 94640; 94660; 94760; A9270-GY; J0456; J0696; J1720; J3370; J7512

== ENCOUNTER 2017-08-15 07:59 | Day surgery (SDC) | payer MEDICARE, MEDICAID ==
[~2017-08-15 07:59] MED LIST: Buffered Lidocaine 0.9% SYRIN* 5 ML/SYR SYRINGE INTRADERM ONE
[2017-08-15] MEDS ORDERED: ceFAZolin 2 GM PREMIX (*) 50 ML IVPB ONE (08:50)
[2017-08-15] MEDS ORDERED: Midazolam* 1 MG/ML 2 ML VIAL (2 MG) ONE (09:33)
[2017-08-15] MEDS ORDERED: fentaNYL* 50 MCG/ML 2 ML VIAL (100 MCG VIAL) ONE (09:33)
[2017-08-15] MEDS ORDERED: Famotidine IV* 10 MG/ML 2 ML (20 mg) ONE (11:13)
[2017-08-15] MEDS ORDERED: Propofol* 10 MG/ML 20 ML BTL IV PUSH ONE (11:13)
[2017-08-15] MEDS ORDERED: Lidocaine 2% PF * 5 ML VIAL ONE (11:13)
[2017-08-15 12:33] VITALS: BP 109/65
[2017-08-15] MEDS ORDERED: Acetaminophen TAB* 325 MG PO PRN ×2 (12:51)
[2017-08-15] MEDS ORDERED: Ondansetron INJ* 2 MG/ML VIAL IV PRN ×2 (12:51)
[2017-08-15] MEDS ORDERED: DiMENhydriNATE IV* 50 MG/ML VIAL IV PUSH PRN ×2 (12:51)
--- NOTE | 2017-08-16 08:57 | OP ---
DATE OF OPERATION: 08/15/17 - ROOM #AA-03 DATE OF : 47. SURGEON: Ankur Rivas MD. CLIENT TECHNOLOGIES ANALYST: Erika Duran PA-C. ANESTHESIOLOGIST: Dr. Matthews ANESTHESIA: MAC PRE-OP DIAGNOSIS: Charcot arthropathy right ankle with prominent lateral hardware. POST-OP DIAGNOSIS: Charcot arthropathy right ankle with prominent lateral hardware. OPERATIVE PROCEDURE: Removal of fibular plate right ankle. DESCRIPTION OF PROCEDURE: The patient was taken to the operating room where MAC anesthesia was performed. We made a longitudinal incision along the distal fibula and removed the small fragment screws. The plate was then removed as well. We irrigated thoroughly, closing the deep tissue with 2-0 Vicryl, subcutaneous with 2-0 Vicryl, and champ with the champ for the skin, and a compression dressing was then applied as well as fiberglass cast. [id number]/[facility] #: [id number] MTDD
== END 2017-08-15 12:33 | disposition home or self-care (01) | DRG 983 ==
LOC: UNDOADMIN 07:59 → OR 07:59 → AA 07:59 → EDSTATUS 11:15 → OR 12:33 → UNDODISIN 12:33
PROVIDERS: ATTEND Orthopaedic Surgery
DX: T84.89XA Other specified complication of internal orthopedic prosthetic devices, implants and grafts, initial encounter (principal); Y79.8 Miscellaneous orthopedic devices associated with adverse incidents, not elsewhere classified; Z96.698 Presence of other orthopedic joint implants; M14.671 Charcot's joint, right ankle and foot; E11.9 Type 2 diabetes mellitus without complications; Z79.4 Long term (current) use of insulin; Z79.82 Long term (current) use of aspirin; Z91.012 Allergy to eggs; Z87.891 Personal history of nicotine dependence; Z88.8 Allergy status to other drugs, medicaments and biological substances
CPT/HCPCS: 88300; J0690; J2250; J2704; J3010

== ENCOUNTER 2018-01-30 11:28 | Inpatient (IN) | payer MEDICARE, MEDICAID ==
--- NOTE | 2018-01-30 12:24 | RAD ---
INDICATION: Chest pain COMPARISON: Chest x-ray October 02, 2017; CTA chest from March 01, 2015 TECHNIQUE: An AP portable view obtained at 1200 hours is submitted. FINDINGS: Bones/Soft Tissues: There are no acute bony findings. Cardiomediastinal: The cardiomediastinal silhouette is unchanged. The cardiac silhouette is mildly prominent. Lungs: There are findings suspicious for right basal infiltrate or the findings may related atelectasis. There is chronic change left lung base which is likely related to a prominent pericardial fat pad and/or to chronic basilar infiltrative change. Pleura: There are no pleural effusions. Other: None IMPRESSION: BIBASILAR ABNORMALITIES WITH MILD WORSENING AERATION RIGHT LUNG BASE. LEFT BASILAR FINDINGS ARE STABLE
[2018-01-30 12:28] LABS: Hematocrit 37 % (35-47); Hemoglobin 12.1 g/dl (12.0-16.0); Mean Corpuscular HGB Conc 33 g/dl (31-36); Mean Corpuscular Hemoglobin 32 pg (27-31); Mean Corpuscular Volume 95 fL (80-97); Mean Platelet Volume 8 um3 (7.4-10.4); Platelet Count 269 10^3/ul (150-450); Red Blood Count 3.84 10^6/ul (4.0-5.4); Red Cell Distribution Width 16 % (10.5-15); White Blood Count 16.4 10^3/ul (3.5-10.8)
[2018-01-30 12:49] LABS: EGFR Non-African American 54.7 (>60)
[2018-01-30] MEDS ORDERED: Levofloxacin 500 MG IVPREMIX(* 500 MG/100 ML BAG IVPB ONE (13:06)
--- NOTE | 2018-01-30 13:09 | RAD ---
HISTORY: Foot swelling and bruising, unable to ambulate COMPARISONS: None relevant available at the time of dictation VIEWS: 3, Frontal, lateral, and oblique views of the left foot FINDINGS: BONE DENSITY: There is diffuse osteopenia. BONES: There is no displaced fracture. There is no appreciable erosion or periosteal reaction. There are calcaneal enthesophytes. JOINTS: There is mild osteoarthritis of the midfoot and first MTP joint. ALIGNMENT: There is no dislocation. SOFT TISSUES: There is extensive soft tissue swelling of the forefoot. There is peripheral arterial calcification. There is also venous stasis calcification of the lower foreleg. OTHER FINDINGS: None. IMPRESSION: 1. SOFT TISSUE SWELLING. 2. OSTEOPENIA. 3. MILD OSTEOARTHRITIS. 4. PERIPHERAL ARTERIAL DISEASE AND EVIDENCE OF CHRONIC VENOUS STASIS. 5. NO ACUTE OSSEOUS INJURY. NO APPRECIABLE EROSION OR PERIOSTEAL REACTION. PLAIN FILM FINDINGS OF OSTEOMYELITIS ARE RELATIVELY LATE FINDINGS. IF THERE IS PERSISTENT CLINICAL CONCERN FOR OSTEOMYELITIS, RECOMMEND CORRELATION WITH FOLLOWUP IMAGING, THREE-PHASE BONE SCANNING, WHITE BLOOD CELL SCAN, AND/OR MRI OF THE AFFECTED REGION.
[2018-01-30 14:01] LABS: ABS Basophils 0.1 10^3/ul (0-0.2); ABS Eosinophils 0 10^3/ul (0-0.6); ABS Lymphocytes 1.8 10^3/ul (1.0-4.8); ABS Monocytes 2.2 10^3/ul (0-0.8); ABS Neutrophils 12.3 10^3/ul (1.5-7.7); ABS Nucleated RBC 0 10^3/ul; Eosinophil % 0.1 % (0-6); Lymphocyte % 10.8 % (25-47); Nucleated Red Blood Cells % 0.1
--- NOTE | 2018-01-30 14:24 | ED ---
HPI Cardiac - HPI Summary HPI Summary: Patient is a 72-year-old female living with family with a home health aide who presents today with a chief complaint of generalized weakness, feeling ill and left lower extremity edema most notably to the foot. Pulses intact. She denies any numbness or tingling in the ipsilateral foot. However, he endorses cellulitis to the leg which is present just below the knee to just superior to the ankle. Denies any fevers, sweats, chills. Has been feeling more short of breath recently and endorses sick contacts in the household with flu a positive. Denies any gastrointestinal symptoms including nausea, vomiting, diarrhea, constipation. Family at bedside state they are unable to continue to care for her at this time due to her inability to ambulate. - History of Current Complaint Chief Complaint: EDWeakness Stated Complaint: LT FOOT PAIN & SWELLING Time Seen by Provider: 01/30/18 11:42 Hx Obtained From: Patient, Family/Assistant Spa Director Onset/Duration: Started Days Ago Timing: Constant Initial Severity: Moderate Pain Intensity: 0 Pain Scale Used: 0-10 Numeric Aggravating Factor(s): Nothing Alleviating Factor(s): Nothing - Risk Factors Cardiac Risk Factors: Hypertension, Diabetes, Elevated Lipids Atrial Fibrillation Risk Factors: Hypertension TAD Risk Factors: Hypertension AMI/ACS Risk Factors: Sedentary Lifestyle, Diabetes, Obesity, Family History, Hypertension, Dyslipidemia Pseudomonas Risk Factors: Repeated Antibiotics Past 3 months - Additional Pertinent History Primary Care Physician: [id number] - Allergy/Home Medications Allergies/Adverse Reactions: Allergies Allergy/AdvReac Type Severity Reaction Status Date / Time egg Allergy Severe Vomiting Verified 01/30/18 14:03 argatroban Allergy Unknown Verified 01/30/18 14:03 Reaction Details bacitracin Allergy Rash Verified 01/30/18 14:03 enoxaparin [From Lovenox] Allergy Unknown Verified 01/30/18 14:03 Reaction Details heparin Allergy Unknown Verified 01/30/18 14:03 Reaction Details povidone-iodine Allergy Unknown Verified 01/30/18 14:03 [From Betadine] Reaction Details soap [From Betadine] Allergy Unknown Verified 01/30/18 14:03 Reaction Details 'blood thinners" AdvReac Severe hemmorage,i Uncoded 08/15/17 08:21 nternal Home Medications: Home Medications Acetaminophen [Acetaminophen Extra Strength] 500 mg PO Q6HR 01/30/18 [History Confirmed 01/30/18] Docusate CAP* [Colace Cap*] 200 mg PO BID 01/30/18 [History Confirmed 01/30/18] Fructooligosaccharides/Polydex [Fiberex F15 Liquid] 15 gm PO DAILY 01/30/18 [ History Confirmed 01/30/18] Insulin Glargine,Hum.rec.anlog [Lantus Solostar] 15 unit SUBCUT BEDTIME [History Confirmed 01/30/18] Latanoprost 0.005%* [Xalatan 0.005%*] 1 drop BOTH EYES QPM 01/30/18 [History Confirmed 01/30/18] Loratadine/Pseudoephedrine [Allergy & Congestion Reli 5-120 mg] 1 tab PO BID PRN 01/30/18 [History Confirmed 01/30/18] Metoprolol Tartrate TAB* [Lopressor TAB*] 25 mg PO BID 01/30/18 [History Confirmed 01/30/18] Multivitamins/Minerals TAB* [Theragran/minerals TAB*] 1 tab PO DAILY 01/30/18 [ History Confirmed 01/30/18] Nystatin TOP POWDER* 1 applic TOPICAL TID PRN 01/30/18 [History Confirmed ] Potassium Chlor TAB* [Klor Con ER TAB*] 20 meq PO BID 01/30/18 [History Confirmed 01/30/18] PMH/Surg Hx/FS Hx/Imm Hx Previously Healthy: No Endocrine/Hematology History: Reports: Hx Diabetes - ON INSULIN Denies: Hx Thyroid Disease Cardiovascular History: Reports: Hx Congestive Heart Failure, Hx Coronary Artery Disease, Hx Deep Vein Thrombosis, Hx Hypertension - ON DAILY MEDS, Other Cardiovascular Problems/Disorders - rectus sheath hematoma, paroxysmal Afib Respiratory History: Reports: Hx Chronic Obstructive Pulmonary Disease (COPD), Hx Pneumonia, Hx Pulmonary Embolism, Other Respiratory Problems/Disorders - OBESITY 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/06 Denies: Hx Asthma GI History: Reports: Hx Gastroesophageal Reflux Disease History: Reports: Other Problems/Disorders - CKD Musculoskeletal History: Reports: Hx Arthritis - bilat knees, HIPS, ANKLE RT, FINGERS, Hx Back Problems, Other Musculoskeletal History - Right total knee replacement 2010 Sensory History: Reports: Hx Cataracts - RT EYE, Hx Contacts or Glasses - READING, Hx Glaucoma - right eye, Hx Legally Blind - Left eye, Hx Vision Problem - blind L eye, Hx Hearing Problem - [place] Denies: Hx Hearing Aid Opthamlomology History: Reports: Hx Cataracts - RT EYE, Hx Contacts or Glasses - [place]ING, Hx Glaucoma - right eye, Hx Legally Blind - Left eye, Hx Vision Problem - blind L eye Neurological History: Denies: Hx Dementia, Hx Seizures - Surgical History Surgery Procedure, Year, and Place: 2010 R TKA [place]. 1963 [facility]. 1962 Tonsilectomy [place]. 1979 cholecysectomy [place]. 1982 C- SECTION [place]. 2013 umbrella filter inserted , [place]. 2015 right ankle [place]. 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 Negative: Fever, Chills Eyes: Negative Negative: Epistaxis, Sore Throat, Ear Ache, Nasal Discharge Negative: Palpitations, Chest Pain Positive: Shortness Of Breath, Cough Gastrointestinal: Negative Negative: Abdominal Pain, Vomiting, Nausea Genitourinary: Negative Positive: no symptoms reported, see HPI, other - dark cloudy urine per family Positive: Arthralgia - left foot erythema and discomfort due to swelling, Myalgia Positive: Other - erythema to left lower extremity, swelling +3 to the left foot , no weeping lesions identified Neurological: Negative All Other Systems Reviewed And Are Negative: Yes Physical Exam Vital Signs On Initial Exam: Initial Vitals Temp Pulse Resp BP Pulse Ox 98.5 F 104 20 103/59 90 01/30/18 11:37 01/30/18 11:37 01/30/18 11:37 01/30/18 11:37 01/30/18 11:37 Diagnostics - Vital Signs Vital Signs Temp Pulse Resp BP Pulse Ox 01/30/18 13:30 111 29 111/68 93 01/30/18 13:04 115 24 107/67 94 01/30/18 13:00 112 29 82/58 94 01/30/18 12:30 100 23 104/63 93 01/30/18 12:00 104 21 101/65 93 01/30/18 11:53 104/56 01/30/18 11:49 101 92 01/30/18 11:40 101 90 01/30/18 11:38 103/59 01/30/18 11:37 98.5 F 104 20 103/59 90 - Laboratory Lab Results: Lab Results 01/30/18 01/30/18 01/30/18 Range/Units 12:06 12:06 12:06 WBC 16.4 H (3.5-10.8) 10^3/ul RBC 3.84 L (4.0-5.4) 10^6/ul Hgb 12.1 (12.0-16.0) g/dl Hct 37 (35-47) % MCV 95 (80-97) fL MCH 32 H (27-31) pg MCHC 33 (31-36) g/dl RDW 16 H (10.5-15) % Plt Count 269 (150-450) 10^3/ul MPV 8 (7.4-10.4) um3 Neut % (Auto) 75.0 (38-83) % Lymph % (Auto) 10.8 L (25-47) % Glenn % (Auto) 13.2 H (0-7) % Eos % (Auto) 0.1 (0-6) % Baso % (Auto) 0.9 (0-2) % Absolute Neuts (auto) 12.3 H (1.5-7.7) 10^3/ul Absolute Lymphs (auto) 1.8 (1.0-4.8) 10^3/ul Absolute Monos (auto) 2.2 H (0-0.8) 10^3/ul Absolute Eos (auto) 0 (0-0.6) 10^3/ul Absolute Basos (auto) 0.1 (0-0.2) 10^3/ul Absolute Nucleated RBC 0 10^3/ul Nucleated RBC % 0.1 ESR 118 H (0-40) mm/Hr Sodium 135 (133-145) mmol/L Potassium TNP Chloride 92 L (101-111) mmol/L Carbon Dioxide 38 H (22-32) mmol/L Anion Gap 5 (2-11) mmol/L BUN 18 (6-24) mg/dL Creatinine 1.00 H (0.51-0.95) mg/dL Est GFR ( Amer) 70.3 (>60) Est GFR (Non-Af Amer) 54.7 (>60) BUN/Creatinine Ratio 18.0 (8-20) Glucose 131 H (70-100) mg/dL Lactic Acid 1.0 (0.5-2.0) mmol/L Calcium 9.9 (8.6-10.3) mg/dL Magnesium TNP Total Bilirubin 0.50 (0.2-1.0) mg/dL AST TNP ALT 12 (7-52) U/L Alkaline Phosphatase 92 (34-104) U/L Troponin I 0.07 H* (<0.04) ng/mL C-Reactive Protein 224.53 H (< 5.00) mg/L Total Protein 6.8 (6.4-8.9) g/dL Albumin 3.3 (3.2-5.2) g/dL Globulin 3.5 (2-4) g/dL Albumin/Globulin Ratio 0.9 L (1-3) Influenza A (Rapid) (Negative) Influenza B (Rapid) (Negative) 01/30/18 Range/Units 12:30 WBC (3.5-10.8) 10^3/ul RBC (4.0-5.4) 10^6/ul Hgb (12.0-16.0) g/dl Hct (35-47) % MCV (80-97) fL MCH (27-31) pg MCHC (31-36) g/dl RDW (10.5-15) % Plt Count (150-450) 10^3/ul MPV (7.4-10.4) um3 Neut % (Auto) (38-83) % Lymph % (Auto) (25-47) % Glenn % (Auto) (0-7) % Eos % (Auto) (0-6) % Baso % (Auto) (0-2) % Absolute Neuts (auto) (1.5-7.7) 10^3/ul Absolute Lymphs (auto) (1.0-4.8) 10^3/ul Absolute Monos (auto) (0-0.8) 10^3/ul Absolute Eos (auto) (0-0.6) 10^3/ul Absolute Basos (auto) (0-0.2) 10^3/ul Absolute Nucleated RBC 10^3/ul Nucleated RBC % ESR (0-40) mm/Hr Sodium (133-145) mmol/L Potassium Chloride (101-111) mmol/L Carbon Dioxide (22-32) mmol/L Anion Gap (2-11) mmol/L BUN (6-24) mg/dL Creatinine (0.51-0.95) mg/dL Est GFR ( Amer) (>60) Est GFR (Non-Af Amer) (>60) BUN/Creatinine Ratio (8-20) Glucose (70-100) mg/dL Lactic Acid (0.5-2.0) mmol/L Calcium (8.6-10.3) mg/dL Magnesium Total Bilirubin (0.2-1.0) mg/dL AST ALT (7-52) U/L Alkaline Phosphatase (34-104) U/L Troponin I (<0.04) ng/mL C-Reactive Protein (< 5.00) mg/L Total Protein (6.4-8.9) g/dL Albumin (3.2-5.2) g/dL Globulin (2-4) g/dL Albumin/Globulin Ratio (1-3) Influenza A (Rapid) Negative (Negative) Influenza B (Rapid) Negative (Negative) Result Diagrams: 01/30/18 12:06 01/30/18 12:06 Lab Statement: Any lab studies that have been ordered have been reviewed, and results considered in the medical decision making process. Disposition - Course Course Of Treatment: During the course of treatment, the patient is evaluated for generalized illness as well as left foot pain and swelling. X-ray obtained which shows: Bibasilar abnormalities with mild worsening aeration right lung base. Left basilar findings are stable. Discussed case with Dr. Stafford, this could be a pneumonia. Troponin obtained which shows a 0.07, evaluating her PMH , this has never been high in the past suggesting an acute pathology, however most likely to a systemic infection. Flu obtained and negative. Awaiting UA. Foot x-ray obtained which shows: Soft tissue swelling. Osteopenia. Mild osteoarthritis. Peripheral arterial disease and evidence of chronic venous stasis. No acute osseous injury. No appreciable erosion or periosteal reaction. Plain film findings of osteomyelitis a relatively weak findings. Recommend correlation with follow-up imaging, three-phase bone scanning, white blood cell scan, and/or MRI of the affected region. I've discussed this case with the hospitalist, who agrees to come see patient and admit for generalized weakness, illness and the inability to ambulate at this time. She has pseudomonas risk factors, Levaquin 750 mg IV given in ED. - Diagnoses Provider Diagnoses: Weakness Discharge - Discharge Plan Condition: Stable Disposition: ADMITTED TO [facility] Referrals: Yuliya Pike MD [Primary Care Provider] -
[2018-01-30] MEDS ORDERED: Magnesium Hydroxide LIQ* 30 ML UDC PO PRN (15:06)
[2018-01-30] MEDS ORDERED: Al Hydrox/Mg Hydrox/Simet LIQ* 30 ML UDC PO PRN (15:06)
[2018-01-30 15:11] LABS: Urine Appearance Clear; Urine Blood 2+ (Negative); Urine Color Yellow; Urine Ketones Negative (Negative); Urine Protein Negative (Negative); Urine Specific Gravity 1.008 (1.010-1.030); Urine Urobilinogen Negative (Negative)
[2018-01-30] MEDS ORDERED: Nystatin TOP POWDER* 15 GM BTL TOPICAL PRN (15:11)
[2018-01-30] MEDS ORDERED: Magnesium Sulfate IV* 3 GM in NS 0.9% 100 ML* 100 ML IVPB ONE (15:57)
[2018-01-30] MEDS ORDERED: cefTRIAXone(*) 1 GM in NS 0.9% 50 ML* 50 ML IVPB ONE (16:00)
[2018-01-30] MEDS ORDERED: Dextrose 50% Syringe 50 ML* 25 GM/50 ML SYRINGE IV PUSH PRN (16:19)
[2018-01-30] MEDS ORDERED: Magnesium Sulfate 2 GM IV IVPB ONE (17:00)
[2018-01-30] MEDS ORDERED: Vancomycin per Pharmacy* NOTE FOLLOW UP PRN (17:15)
[2018-01-30] MEDS: Insulin GLARGINE(*) 1 UNITS UNIT SUBCUT SCH (17:24)
[2018-01-30] MEDS: Insulin LISPRO* 1 UNITS UNIT SUBCUT SCH (17:24)
[2018-01-30] MEDS: Azithromycin IV(*) 500 MG in NS 0.9% 250 ML* 250 ML IVPB SCH (17:56)
[2018-01-30] MEDS ORDERED: Vancomycin(*) 1,250 MG in NS 0.9% 250 ML* 250 ML IVPB ONE (18:00)
[2018-01-30] MEDS ORDERED: Magnesium Sulfate 1 GM IV* 1 GM/100 ML BAG IV ONE (18:00)
[2018-01-30] MEDS: Atorvastatin* 10 MG TAB PO SCH (21:39)
[2018-01-30] MEDS: Acetaminophen TAB* 325 MG PO PRN (21:39)
[2018-01-30] MEDS: Flecainide TAB* 100 MG PO SCH (21:40)
[2018-01-30] MEDS: Metoprolol Tartrate TAB* 25 MG PO SCH (21:40)
[2018-01-30] MEDS: Docusate CAP* 100 MG PO SCH (21:40)
[2018-01-30] MEDS: Latanoprost 0.005%* 2.5 ml BTL BOTH EYES SCH (21:41)
[2018-01-30] MEDS: Omeprazole CAP* 20 MG PO SCH (21:41)
[2018-01-31 06:15] LABS: ABS Basophils 0.1 10^3/ul (0-0.2); ABS Eosinophils 0.1 10^3/ul (0-0.6); ABS Lymphocytes 1.7 10^3/ul (1.0-4.8); ABS Monocytes 1.4 10^3/ul (0-0.8); ABS Neutrophils 7.5 10^3/ul (1.5-7.7); ABS Nucleated RBC 0 10^3/ul; Hematocrit 34 % (35-47); Hemoglobin 11.6 g/dl (12.0-16.0); Lymphocyte % 15.8 % (25-47); Mean Corpuscular HGB Conc 34 g/dl (31-36); Mean Corpuscular Hemoglobin 32 pg (27-31); Mean Corpuscular Volume 96 fL (80-97); Mean Platelet Volume 8 um3 (7.4-10.4); Nucleated Red Blood Cells % 0.1; Platelet Count 240 10^3/ul (150-450); Red Blood Count 3.59 10^6/ul (4.0-5.4); Red Cell Distribution Width 15 % (10.5-15); White Blood Count 10.8 10^3/ul (3.5-10.8)
[2018-01-31 06:34] LABS: EGFR Non-African American 55.3 (>60)
[2018-01-31] MEDS ORDERED: Vancomycin(*) 1,000 MG in NS 0.9% 250 ML* 250 ML IVPB SCH (08:00)
[2018-01-31] MEDS: Insulin LISPRO* 1 UNITS UNIT SUBCUT SCH ×3 (08:18→17:11)
[2018-01-31] MEDS: Metoprolol Tartrate TAB* 25 MG PO SCH ×2 (08:19→20:39)
[2018-01-31] MEDS: Docusate CAP* 100 MG PO SCH ×2 (08:19→20:39)
[2018-01-31] MEDS: Cyanocobalamin TAB* 500 MCG PO SCH (08:19)
[2018-01-31] MEDS: Flecainide TAB* 100 MG PO SCH ×2 (08:19→20:39)
[2018-01-31] MEDS: Omeprazole CAP* 20 MG PO SCH ×2 (08:19→20:39)
[2018-01-31] MEDS: predniSONE TAB* 20 MG PO SCH (08:19)
[2018-01-31] MEDS: Cholecalciferol TAB* 1000 UNITS PO SCH (08:19)
[2018-01-31] MEDS: Multivitamins/Minerals TAB PO SCH (08:20)
[2018-01-31] MEDS: Aspirin Low Dose CHEW TAB* 81 MG PO SCH (08:21)
[2018-01-31] MEDS ORDERED: Furosemide TAB* 40 MG PO SCH (09:00)
--- NOTE | 2018-01-31 10:31 | PN ---
Subjective Date of Service: 01/31/18 Interval History: Ms. Melton reports that she feels better than on arrival but still has pain in her left leg that makes it difficult for her to ambulate. She reports a mild cough but denies SOB or chest pain. She feels that her left and right leg redness has improved. Objective Active Medications: Acetaminophen (Tylenol Tab*) 650 mg PO Q6H PRN Al Hydrox/Mg Hydrox/Simethicone (Maalox Plus*) 30 ml PO Q6H PRN Aspirin (Aspirin Low Dose Tab*) 81 mg PO DAILY [facility] Atorvastatin Calcium (Lipitor*) 10 mg PO BEDTIME [facility] Cholecalciferol (Vitamin D Tab*) 1,000 units PO DAILY [facility] Cyanocobalamin (Vitamin B12 Tab*) 1,000 mcg PO DAILY [facility] Dextrose (D50w Syringe 50 Ml*) 12.5 gm IV PUSH .FOR FS < 60 - SS PRN Docusate Sodium (Colace Cap*) 200 mg PO BID [facility] Flecainide Acetate (Tambocor Tab*) 50 mg PO BID [facility] Azithromycin 500 mg/ Sodium (Chloride) 250 mls @ 250 mls/hr IVPB Q24H [facility] Ceftriaxone Sodium 1 gm/ (Sodium Chloride) 50 mls @ 200 mls/hr IVPB Q24H [facility] Vancomycin HCl 1,000 mg/ (Sodium Chloride) 250 mls @ 166.667 mls/hr IVPB Q12H [facility] Insulin Glargine (Lantus(*)) 15 units SUBCUT Q24H [facility] Insulin Human Lispro (Humalog*) 0 units SUBCUT AC [facility] Latanoprost (Xalatan 0.005%*) 1 drop BOTH EYES BEDTIME [facility] Magnesium Hydroxide (Milk Of Magnesia Liq*) 30 ml PO Q4H PRN Metoprolol Tartrate (Lopressor Tab*) 25 mg PO BID [facility] Multivitamins/Minerals (Theragran/Minerals Tab*) 1 tab PO DAILY [facility] Nystatin (Nystatin Top Powder*) 1 applic TOPICAL TID PRN Omeprazole (Prilosec Cap*) 20 mg PO BID [facility] Pharmacy Consult (Vancomycin Per Pharmacy*) 1 note FOLLOW UP . PRN Pharmacy Profile Note (Vancomycin Trough Check) 1 note FOLLOW UP 0730 ONE Prednisone (Deltasone Tab*) 20 mg PO DAILY [facility] Vital Signs: Temp Pulse Resp BP Pulse Ox 98.8 F 109 18 101/61 92 01/31/18 07:22 01/31/18 07:22 01/31/18 07:43 01/31/18 07:22 01/31/18 07:22 Oxygen Devices in Use Now: Nasal Cannula Appearance: Female lying in bed in NAD Eyes: No Scleral Icterus Ears/Nose/Mouth/Throat: Mucous Membranes Moist Neck: Trachea Midline Respiratory: Symmetrical Chest Expansion and Respiratory Effort, - Cardiovascular: NL Sounds; No Murmurs; No JVD Abdominal: NL Sounds; No Tenderness; No Distention Lymphatic: No Cervical Adenopathy Skin: No Rash or Ulcers Neurological: Alert and Oriented x 3, NL Muscle Strength and Tone Nutrition: Taking PO's Result Diagrams: 01/31/18 05:43 01/31/18 05:43 Additional Lab and Data: . Assess/Plan/Problems-Billing Assessment: Ms. Melton is a 72 yo F with a PMH of who was admitted on 01/30/18 with cellulitis and pneumonia. - Patient Problems (1) Pneumonia Comment: - Requiring 4L NC, up from home O2 of 2L NC - ? Bibasilar infiltrates, R worse than baseline. - Continue ceftriaxone. (2) CKD (chronic kidney disease), stage III Comment: Stable, near baseline (3) Atrial fibrillation Comment: - The patient remains in NSR with flecanide. - She is not on anticoagulation as she has a h/o life threatening bleeds in the past. (4) COPD (chronic obstructive pulmonary disease) Comment: - No signs of exacerbation at this time. - The patient is O2 dependent for her chronic hypoxic respiratory failure secondary to COPD. (5) Congestive heart failure Comment: - Compensated. - Continue metoprolol. - Hold furosemide during acute illness. (6) RADHA (obstructive sleep apnea) Comment: - Continue CPAP/BiPAP (7) Type 2 diabetes mellitus Comment: - BG 150-180. - Continue home lantus and Lispro SS. (8) Cellulitis Comment: - L ankle. - Cont vancomycin and ceftriaxone. (9) DVT prophylaxis Comment: - SCDs only given h/o life threatening bleeds related to anticoagulants in the past. (10) Patient is full code Comment: Status and Disposition: Inpatient.
--- NOTE | 2018-01-31 12:23 | HP ---
CC: Dr. Yuliya Pike * HISTORY AND PHYSICAL: DATE OF ADMISSION: 01/30/18 PROVIDER: Cesilia Valerio NP. PRIMARY CARE PROVIDER: Dr. Yuliya Pike. ATTENDING PHYSICIAN WHILE IN THE HOSPITAL: Myah Thomason MD * (dictated by Cesilia Valerio NP). CHIEF COMPLAINT: 1. Left lower leg redness/pain. 2. Cough. HISTORY OF PRESENT ILLNESS: Ms. Melton is a 72-year-old female patient. She carries past medical history of diastolic CHF, type 2 diabetes, Afib, history of DVT and PE, chronic kidney disease stage 3, morbid obesity, giant cell arteritis, history of hemorrhagic shock secondary to blood thinners, hyperlipidemia and TIA, pelvic fracture, and obstructive sleep apnea who presented to the emergency room today with left lower leg redness, pain, and cough times 24 hours. The patient reports that she noticed having a low-grade fever times the past 48 hours. She noticed increased redness and swelling to her left lower leg. She reports that today her foot was very painful to put any pressure or with walking and that she had also developed cough for the last 24 hours, so she came to the emergency room for further evaluation. She does report that she lives with her son and daughter- in-law who recently tested positive for the flu in the middle of December. They have all been treated with Tamiflu and symptoms have resolved. She does report that she wears oxygen 2 L nasal cannula continuously. There has been no chest pain. She does report that she has had increased shortness of breath. She denies any abdominal pain. Denies any nausea or vomiting. She does report mild nausea, but denies vomiting. No dysuria. No loss of consciousness. Does report low-grade fever x2 days and decreased appetite. She does report some shortness of breath with coughing. Because of her left lower leg redness, swelling, pain and cough for 24 hours, we were asked to evaluate for admission. PAST MEDICAL HISTORY: Significant for; 1. Type 2 diabetes. 2. Obesity. 3. Diastolic CHF. 4. Giant cell arteritis. 5. 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 6. Atrial fibrillation. 7. Chronic kidney disease stage 2 to 3. 8. COPD. 9. History of hemorrhagic shock secondary to bleeding associated with blood thinners. 10. Hyperlipidemia. 11. TIA. 12. Obesity hypoventilation syndrome. PAST SURGICAL HISTORY: 1. Hernia repair with mesh. 2. Tonsillectomy in 1962. 3. Cholecystectomy. 4. Appendectomy in 1963. 5. Right total knee replacement. 6. Right ankle fracture with repair. MEDICATIONS: Home medications include; 1. Acetaminophen 500 mg p.o. q.6 hours. 2. Prednisone 20 mg p.o. daily. 3. Aldactone 25 mg p.o. daily. 4. Pravastatin 40 mg p.o. daily. 5. Potassium chloride 20 mEq p.o. b.i.d. 6. Omeprazole 20 mg p.o. b.i.d. 7. Nystatin topically t.i.d. p.r.n. to skin folds. 8. Multivitamin 1 p.o. daily. 9. Metoprolol tartrate 25 mg p.o. b.i.d. 10. Insulin lispro 0 to 15 units a.c. and h.s. sliding scale. 11. Lantus 15 units subcu at bedtime. 12. Loratadine/pseudoephedrine allergy 1 tab p.o. b.i.d. p.r.n. 13. Lasix 40 mg p.o. q.a.m. 14. 15 g p.o. daily. 15. Flecainide 100 mg p.o. daily. 16. Docusate 200 mg p.o. b.i.d. 17. Vitamin B12 of 1000 mcg p.o. daily. 18. Vitamin D 1000 units p.o. daily. 19. Aspirin 81 mg p.o. daily. 20. Xalatan eye drops 1 drop to both eyes q.p.m. ALLERGIES TO MEDICATIONS: Include; 1. EGGS. 2. ARGATROBAN. 3. BACITRACIN. 4. LOVENOX. 5. HEPARIN. 6. BETADINE. 7. from BETADINE. 8. All BLOOD THINNERS. This is a severe allergy with hemorrhagic internal bleeding. FAMILY HISTORY: Mother had a CVA. Father with an AK. Grandmother with an AK. Diabetes with mother and father. Cancer with aunt who had breast cancer. Grandmother with lung cancer. SOCIAL HISTORY: The patient is a former smoker. She denies any alcohol or illicit drug use. Surrogate decision maker is her son, Adrian Melton, his phone number is [phone]. Secondary surrogate decision maker is Leticia Dc, her phone number is [phone]. REVIEW OF SYSTEMS: There was no documented fever. There has been no significant weight change. There was no double vision. She does report that she has chronic left eye blindness. No ear discharge. Denies any rhinorrhea. Currently denies any sore throat. No thyroid. Denies having chest pain. She does report a moist cough and shortness of breath with coughing, but denies nocturnal dyspnea or orthopnea. There is no abdominal pain. She does report some nausea. Denies any vomiting or diarrhea. Denies any urinary frequency or urgency. Denies any hematuria. There is no seizures. No loss of consciousness. She has no focal weakness. There is no pruritus. Denies any dysphagia and denies any arthralgias or myalgias. She does report redness to her groin and under bilateral breasts. She also reports left lower leg with redness and right lower leg with mild redness. Denies any calf pain or tenderness. Does report pain to her foot with palpation. A review of 14 systems was completed and all others were negative. PHYSICAL EXAMINATION GENERAL: At this time, Ms. Melton is a 72-year-old female. She appears comfortable, sitting on the stretcher in the emergency room. She does not appear to be in any acute distress. VITAL SIGNS: Temperature 98.5, heart rate 104, respirations 20, O2 saturation is 98% on 2 L, blood pressure 103/59. HEENT: Head is atraumatic, normocephalic. Eyes: EOMs are intact. Sclerae anicteric and not pale. Oral mucosa appears to be moist. No oropharyngeal erythema. NECK: Supple. LUNGS: Sounds are diminished throughout with some crackles in the bases. CARDIAC: Normal S1, S2. Regular rate and rhythm. ABDOMEN: Obese, soft, nontender, nondistended. Bowel sounds are present x4. EXTREMITIES: Bilateral lower extremities with redness, left greater than right. Mild swelling noted to bilateral extremities. Pedal pulses are bilaterally +1. NEUROLOGIC: She is awake, alert, and oriented x3. Speech is clear. There are no focal deficits. SKIN: Bilateral lower legs with redness, left greater than right. Left is warm to touch. There is mild swelling noted to the left lower leg. There is no open areas or blistering noted to the lower extremity. She also has some mild redness in the skin folds and under bilateral breasts. DIAGNOSTIC STUDIES AND LABORATORY DATA: WBC 16.4, RBC 3.84, hemoglobin 12.1, hematocrit 37, and platelet count 269,000. Sodium 135, potassium 5.2, chloride 92, carbon dioxide 38, anion gap 5, BUN 18, creatinine 1.0, glucose 131, lactic acid 1.0, calcium 9.9, magnesium 1.5, AST 18, ALT 12. Troponin initially was 0.07, repeat troponin 0.04 and third troponin was 0.01. C-reactive protein 224.53. Urine pH was 5.0, specific gravity 1.008. Urine protein was negative, ketones were negative. Urine blood was 2+. Urine nitrites were negative. Bilirubin was negative. Urine leukocyte esterase was also negative. Urine WBCs were trace, RBCs were trace. Squamous epithelial cells were present. Bacteria was absent. Glucose was negative. Flu A and B were both negative. EKG shows sinus tachycardia at a rate of 100. Chest x-ray: Radiologist impression: Bibasilar abnormalities with mild worsening aeration on the right lung base, left basilar findings are stable. Findings are suspicious for right basilar infiltrate. For x-ray, left 3 views: Radiologist impression: 1. Soft tissue swelling. 2. Osteopenia. 3. Osteoarthritis. 4. Peripheral artery disease, evidence of chronic venous stasis. 5. No acute osseous injury. No appreciable erosion or periosteal reaction, plain film. Findings that there is persistent clinical concern for osteomyelitis. Recommend correlation with followup imaging, 3-phase bone scan, white blood cell scan or an MRI of the affected region. ASSESSMENT AND PLAN: Ms. Melton is a 72-year-old female that presented to the emergency room today with the complaints of left lower leg redness, swelling, and left foot pain and cough, which started approximately 24 hours ago with associated fever times 48 hours. She will be admitted to the hospital inpatient to the medical floor with cellulitis and pneumonia. 1. Cellulitis. I will place her on vancomycin 1250 mg initially and dosing per pharmacy for subsequent dosing. We will continue to monitor lower leg redness and swelling. 2. Pneumonia. We will place her on albuterol nebulizers. She will be placed on azithromycin 500 mg IV daily and ceftriaxone 1 g IV daily. 3. Leukocytosis. I believe that this is in combination of her current left lower leg cellulitis and her combined steroid use. She denies any GI or issues. I expect that the leukocytosis is probably related to the possibility of underlying pneumonia and cellulitis along with her chronic steroid use. 4. Elevated troponin. I suspect that this is related to demand ischemia of her shortness of breath and underlying infection. We will trend her troponins. I will repeat an EKG in the morning. 5. History of diastolic congestive heart failure. This is stable. We will continue her Lasix at this time. We will also continue her metoprolol tartrate 25 mg p.o. b.i.d. 6. Hypertension. Again, we will continue the metoprolol. 7. History of giant cell arteritis. We will continue her on her prednisone 20 mg p.o. daily. 8. History of atrial fibrillation. We will continue her on her flecainide as previously. 9. Obesity hypoventilation syndrome, stable. We will continue her with her CPAP at night that family will bring from home. 10. Hypomagnesium. We will give her 3 g of magnesium IV and repeat BMP in the a.m. 11. History of transient ischemic attack. We will continue her on aspirin and her statin. 12. Type 2 diabetes. We will continue her on Lantus and her lispro sliding scale. 13. DVT prophylaxis. She is at highest risk for scoring and pharmacological prophylaxis is contraindicated at this time due to her history of hemorrhagic shock and reaction to blood thinners. It is also contraindicated that we use SCDs at this time as she has left lower leg cellulitis and possible mild cellulitis in her right lower leg. The patient and family is also refusing that she have any blood thinners of any kind due to her history of hemorrhagic shock. 14. Code status. She is a full code. TIME SPENT: Time spent was approximately 60 minutes, greater than half that time was spent [id number] with the patient and her family obtaining medical history and completing her physical, the other half of the time was spent going over the plan of care with the patient and her family and implementing that plan of care. I discussed this with my attending, Dr. Myah Thomason, and she is in agreement with my plan of care. CSEILIA VALERIO, MENTAL HEALTH SOCIAL WORKER [id number]/[facility] #: [id number] [facility]
[2018-01-31] MEDS ORDERED: cefTRIAXone(*) 1 GM in NS 0.9% 50 ML* 50 ML IVPB SCH (16:00)
[2018-01-31] MEDS: Insulin GLARGINE(*) 1 UNITS UNIT SUBCUT SCH (17:12)
[2018-01-31] MEDS: Azithromycin IV(*) 500 MG in NS 0.9% 250 ML* 250 ML IVPB SCH (17:12)
[2018-01-31] MEDS: Atorvastatin* 10 MG TAB PO SCH (20:38)
[2018-01-31] MEDS: Latanoprost 0.005%* 2.5 ml BTL BOTH EYES SCH (20:41)
[2018-02-01] MEDS ORDERED: Vancomycin Trough Check NOTE FOLLOW UP ONE (07:30)
--- NOTE | 2018-02-01 08:25 | PN ---
Subjective Date of Service: 02/01/18 Interval History: Ms. Melton denies any acute complaint today. She agrees that her edema and redness have improved to her left ankle. She denies chest pain, SOB, nausea, or abdominal pain and is tolerating oral intake well. Objective Active Medications: Acetaminophen (Tylenol Tab*) 650 mg PO Q6H PRN Al Hydrox/Mg Hydrox/Simethicone (Maalox Plus*) 30 ml PO Q6H PRN Aspirin (Aspirin Low Dose Tab*) 81 mg PO DAILY [facility] Atorvastatin Calcium (Lipitor*) 10 mg PO BEDTIME [facility] Cholecalciferol (Vitamin D Tab*) 1,000 units PO DAILY [facility] Cyanocobalamin (Vitamin B12 Tab*) 1,000 mcg PO DAILY [facility] Dextrose (D50w Syringe 50 Ml*) 12.5 gm IV PUSH .FOR FS < 60 - SS PRN Docusate Sodium (Colace Cap*) 200 mg PO BID [facility] Flecainide Acetate (Tambocor Tab*) 50 mg PO BID [facility] Azithromycin 500 mg/ Sodium (Chloride) 250 mls @ 250 mls/hr IVPB Q24H [facility] Ceftriaxone Sodium 1 gm/ (Sodium Chloride) 50 mls @ 200 mls/hr IVPB Q24H [facility] Insulin Glargine (Lantus(*)) 15 units SUBCUT Q24H [facility] Insulin Human Lispro (Humalog*) 0 units SUBCUT AC [facility] Latanoprost (Xalatan 0.005%*) 1 drop BOTH EYES BEDTIME [facility] Magnesium Hydroxide (Milk Of Magnesia Liq*) 30 ml PO Q4H PRN Metoprolol Tartrate (Lopressor Tab*) 25 mg PO BID [facility] Multivitamins/Minerals (Theragran/Minerals Tab*) 1 tab PO DAILY [facility] Nystatin (Nystatin Top Powder*) 1 applic TOPICAL TID PRN Omeprazole (Prilosec Cap*) 20 mg PO BID [facility] Pharmacy Consult (Vancomycin Per Pharmacy*) 1 note FOLLOW UP . PRN Prednisone (Deltasone Tab*) 20 mg PO DAILY [facility] Vital Signs: Temp Pulse Resp BP Pulse Ox 97.2 F 96 20 97/56 94 02/01/18 04:16 02/01/18 04:16 02/01/18 07:57 02/01/18 04:16 02/01/18 04:16 Oxygen Devices in Use Now: Nasal Cannula Appearance: Female sitting up in bed in NAD Eyes: No Scleral Icterus Ears/Nose/Mouth/Throat: Mucous Membranes Moist Neck: Trachea Midline Respiratory: Symmetrical Chest Expansion and Respiratory Effort, Clear to Auscultation Cardiovascular: NL Sounds; No Murmurs; No JVD Abdominal: NL Sounds; No Tenderness; No Distention Lymphatic: No Cervical Adenopathy Extremities: - - B LE edema, L > R but improving Skin: - - L ankle edema and erythema continue to improve Neurological: Alert and Oriented x 3, NL Muscle Strength and Tone Nutrition: Taking PO's Result Diagrams: 01/31/18 05:43 02/01/18 07:33 Additional Lab and Data: . Assess/Plan/Problems-Billing Assessment: Ms. Melton is a 72 yo F with a PMH of DM and CHF who was admitted on 01/30/18 with cellulitis and pneumonia. - Patient Problems (1) Cellulitis Comment: - L ankle. - Switch to augmentin. (2) Pneumonia Comment: - Back on home O2, no cough or fever. No leukocytosis. - ? Bibasilar infiltrates, R worse than baseline, minimal. - Switch to augmentin for cellulitis and pneumonia coverage. (3) UTI (urinary tract infection) Comment: - Urine culture with morganella morgani - Asymptomatic, no treatment indicated. (4) CKD (chronic kidney disease), stage III Comment: - Stable, near baseline (5) Atrial fibrillation Comment: - The patient remains in NSR with flecanide. - She is not on anticoagulation as she has a h/o life threatening bleeds in the past. (6) COPD (chronic obstructive pulmonary disease) Comment: - No signs of exacerbation at this time. - The patient is O2 dependent for her chronic hypoxic respiratory failure secondary to COPD. (7) Congestive heart failure Comment: - Compensated. - Continue metoprolol. - Resume furosemide and spironolactone. (8) RADHA (obstructive sleep apnea) Comment: - Continue CPAP/BiPAP (9) Type 2 diabetes mellitus Comment: - BG 130-230. - Continue home lantus and Lispro SS. (10) DVT prophylaxis Comment: - SCDs only given h/o life threatening bleeds related to anticoagulants in the past. (11) Patient is full code Comment: Status and Disposition: Inpatient.
[2018-02-01] MEDS: Docusate CAP* 100 MG PO SCH ×2 (08:27→19:54)
[2018-02-01] MEDS: Aspirin Low Dose CHEW TAB* 81 MG PO SCH (08:27)
[2018-02-01] MEDS: Omeprazole CAP* 20 MG PO SCH ×2 (08:27→19:54)
[2018-02-01] MEDS: Cyanocobalamin TAB* 500 MCG PO SCH (08:27)
[2018-02-01] MEDS: Flecainide TAB* 100 MG PO SCH ×2 (08:27→19:54)
[2018-02-01] MEDS: Cholecalciferol TAB* 1000 UNITS PO SCH (08:27)
[2018-02-01] MEDS: Multivitamins/Minerals TAB PO SCH (08:27)
[2018-02-01] MEDS: Insulin LISPRO* 1 UNITS UNIT SUBCUT SCH ×3 (08:28→17:30)
[2018-02-01] MEDS: Metoprolol Tartrate TAB* 25 MG PO SCH ×2 (08:28→19:58)
[2018-02-01] MEDS: predniSONE TAB* 20 MG PO SCH (08:28)
[2018-02-01 09:08] LABS: EGFR Non-African American 58.7 (>60)
[2018-02-01] MEDS: Furosemide TAB* 40 MG PO SCH (10:58)
[2018-02-01] MEDS: Spironolactone TAB* 25 MG PO SCH (10:58)
[2018-02-01] MEDS: Acetaminophen TAB* 325 MG PO PRN ×2 (11:50→18:48)
[2018-02-01] MEDS: Insulin GLARGINE(*) 1 UNITS UNIT SUBCUT SCH (17:30)
[2018-02-01] MEDS: Atorvastatin* 10 MG TAB PO SCH (19:54)
[2018-02-01] MEDS: Amoxicillin/Clavulanate TAB* 875 MG PO SCH (19:54)
[2018-02-01] MEDS: Latanoprost 0.005%* 2.5 ml BTL BOTH EYES SCH (19:55)
[2018-02-02 08:09] VITALS: BP 109/63
[2018-02-02] MEDS: Insulin LISPRO* 1 UNITS UNIT SUBCUT SCH (08:12)
[2018-02-02] MEDS: Acetaminophen TAB* 325 MG PO PRN (09:53)
[2018-02-02] MEDS: Cyanocobalamin TAB* 500 MCG PO SCH (09:54)
[2018-02-02] MEDS: Flecainide TAB* 100 MG PO SCH (09:54)
[2018-02-02] MEDS: Furosemide TAB* 40 MG PO SCH (09:54)
[2018-02-02] MEDS: Docusate CAP* 100 MG PO SCH (09:54)
[2018-02-02] MEDS: Aspirin Low Dose CHEW TAB* 81 MG PO SCH (09:54)
[2018-02-02] MEDS: predniSONE TAB* 20 MG PO SCH (09:54)
[2018-02-02] MEDS: Cholecalciferol TAB* 1000 UNITS PO SCH (09:54)
[2018-02-02] MEDS: Spironolactone TAB* 25 MG PO SCH (09:54)
[2018-02-02] MEDS: Multivitamins/Minerals TAB PO SCH (09:54)
[2018-02-02] MEDS: Metoprolol Tartrate TAB* 25 MG PO SCH (09:54)
[2018-02-02] MEDS: Omeprazole CAP* 20 MG PO SCH (09:54)
[2018-02-02] MEDS: Amoxicillin/Clavulanate TAB* 875 MG PO SCH (09:54)
--- NOTE | 2018-02-02 22:15 | PN ---
Progress Note - Progress Note Date of Service: 01/29/18 Note: Appearance: WDW, comfortable, pleasant, alert Skin: cellulitis to the L lower extremity with dry patchy and flaky skin overlying Eyes: GUDELIA, EOMI, Conjunctiva pink with no redness or exudates. Mouth: Dentition without lesions. Moist mucosa Neck: Full range of motion. Palpable thyroid. Trachea at midline. Cervical LAD. Pulm: Chest symmetrical expansion. No deformities on posterior chest wall. Lungs with decreased breath sounds in bilateral lower lung bases. CV: No JVD. No deformities on anterior chest wall. Heart sounds. RRR. Normal S1 and single S2. No S3, S4, rubs, or murmurs. Carotids 2+ bilaterally without bruits. . exam not performed GI: Bowel sounds WNL in all 4 quadrants. No pain on deep palpation of all 4 quadrants. Musculoskeletal: Unable to assess MSK d/t weakness. Neuro: Denies any numbness or tingling in the bilateral lower extremity. Psych: Logical, coherent
--- NOTE | 2018-02-03 05:05 | DS ---
CC: Dr. Yuliya Pike * DISCHARGE SUMMARY: DATE OF ADMISSION: 01/30/18 DATE OF DISCHARGE: 02/02/18 PRIMARY CARE PROVIDER: Dr. Yuliya Pike. MY ATTENDING WHILE IN THE HOSPITAL: Dr. Prakash Angelo.* (DICTATED BY DONNELL MUSTAFA) PRIMARY DISCHARGE DIAGNOSES: Left lower leg cellulitis, probable bibasilar pneumonia. SECONDARY DISCHARGE DIAGNOSES: 1. Type 2 diabetes. 2. Diastolic congestive heart failure. 3. History of giant cell arteritis. 4. History of deep vein thrombosis and pulmonary embolus, post IVC filter placement. 5. Atrial fibrillation. 6. Chronic kidney disease stage 3. 7. Chronic obstructive pulmonary disease. 8. History of hemorrhagic shock. 9. Hyperlipidemia. 10. Transient ischemic attack. 11. Obesity-Hypoventilation Syndrome 12. Obesity. 13. History of right ankle fracture. 14. History of hip fracture. STUDIES DONE WHILE IN THE HOSPITAL: Chest x-ray from 01/30/18 read as bibasilar abnormalities with mild worsening aeration on the right lung base, left basilar findings are stable. EKG from 01/30/18 shows sinus tachycardia, rate of 100, irregular rhythm, probable PACs, abnormal R-wave progression, left axis deviation, right bundle- branch block, no hypertrophy or enlargement, no other abnormalities. EKG from 05/15 shows PVC with subsequent PACs, no other significant changes. Foot x-ray from 01/30/18 read as soft tissue swelling, osteopenia, mild osteoarthritis, peripheral arterial disease, and evidence of chronic venostasis. No acute osseous injury. No appreciable erosion or periosteal reaction. Plain film finding of osteomyelitis, relatively late findings as there is persistent clinical concern for osteomyelitis. Recommend correlation with followup imaging, three-phase bone scanning, white blood cell scan or MRI of the affected region. MEDICATIONS AT DISCHARGE: 1. Prednisone 20 mg p.o. daily. 2. Aspirin 81 mg p.o. daily. 3. Flecainide 50 mg p.o. b.i.d. 4. Vitamin B12 1000 mcg p.o. daily. 5. Vitamin D 1000 units p.o. daily. 6. Omeprazole 20 mg p.o. b.i.d. 7. Furosemide 80 mg p.o. daily. 8. Pravastatin 40 mg p.o. daily. 9. Spironolactone 25 mg p.o. daily. 10. Insulin lispro 0 to 15 units subcutaneous a.c. and h.s. 11. Potassium chloride 20 mEq p.o. b.i.d. 12. Multivitamin 1 tab p.o. daily. 13. Metoprolol tartrate 25 mg p.o. b.i.d. 14. Insulin glargine 15 units subcutaneous at bedtime. 15. Loratadine/pseudoephedrine 1 tab p.o. b.i.d. as needed. 16. Fiberex 15 g p.o. daily. 17. Tylenol 500 mg p.o. q. 6 hours. 18. Latanoprost 0.005% 1 drop both eyes q.p.m. 19. Nystatin topical powder 1 application topical t.i.d. as needed. 20. Docusate 200 mg p.o. b.i.d. 21. Tylenol 650 mg p.o. q. 6 hours as needed. 22. Augmentin 875 one tab p.o. b.i.d. x14. New medications at discharge: 1. Furosemide. 2. Augmentin. Medication discontinued at discharge: 1. Furosemide 40 mg p.o. daily. HOSPITAL COURSE: This is a brief summary of the patient's presentation. For more details, please see the history and physical from Cesilia Valerio on 01/30. In brief, patient is a 72-year-old female with past medical history significant for the above, who presents with increased left lower extremity pain , redness, swelling, and new onset cough with some low-grade subjective fevers. The patient states that her pain was worse, painful with walking. The patient has recently been exposed to the flu, was on post-exposure prophylaxis. The patient has chronic hypoxic respiratory failure and is on 2 L nasal cannula and does not need to increase this. Denied chest pain or other, had mild nausea with no vomiting and no other symptoms. The patient was admitted to the hospital for cellulitis of her left lower extremity and pneumonia consistent with the chest x-ray findings as per above. The patient was started on azithromycin, ceftriaxone, and vancomycin. The patient also had an elevated troponin at 0.07, which decreased to 0.04, 0.01, and 0.02. Other laboratory abnormalities on admission, magnesium 1.5, potassium 5.2, creatinine 1.0, white blood cell count 16.4, carbon dioxide 38. The patient improved overnight from 01/30/18 to 01/31/18 on antibiotics; however, the patient continued to have significant pain in her leg, making it difficult to ambulate. Her cough improved and her shortness of breath improved. She needed up to 4 L of nasal cannula. The patient improved again overnight from 01/31/18 to 02/01/18. The patient had no fevers nor other signs of tachycardia or other signs of infection. At this point, the patient was transitioned from IV to oral antibiotics with Augmentin with no issues. The patient was able to work with PT and ambulate with one assist, though she had persistent pain in her leg. The patient's magnesium increased with repletion and her potassium decreased with fluids. The patient improved again overnight from 02/01/18 to 02/02/18. The patient was able to walk up 4 steps with physical therapy. The patient had no other concerns. The patient's family stated that she was at approximately her base-line, though she had increased swelling in her legs making it difficult to put her shoes on, but that they were confident that they will be able to take care of her at home. The patient had her diuretics held for her acute illness when she first arrived in the hospital and had them reintroduced on 02/01/18. The patient has followup appointments with her primary care provider, doctor of nursing practice, and jet engine mechanic early next week. PHYSICAL EXAMINATION ON THE DAY OF DISCHARGE: General: The patient is a 72- year- old female who appears older than stated age and sitting comfortably in bed, in no acute distress. HEENT: Head: Normocephalic, atraumatic. Sclerae anicteric. No conjunctival injection. Nasal mucosa moist. Oral mucosa moist. No pharyngeal erythema, discharge, or exudates. Vital Signs: At the time of discharge, temperature 98.5, pulse rate 84, respiratory rate 18, oxygen saturation 93% on 2 L, blood pressure 111/63. Neck: Supple, nontender. No lymphadenopathy. No carotid bruits auscultated. Cardiac: Regular rate and rhythm. No clicks, murmurs, gallops, or rubs. Pulses are 2+ in the bilateral dorsalis pedis, posterior tibialis, and radial areas, 2+ pitting edema in bilateral lower extremities. No tenderness to palpation over the calves with palpable cords. Respiratory: Clear to auscultation bilaterally. Good air exchange bilaterally. Abdomen: Soft, nontender, nondistended. Bowel sounds are present and normoactive in all 4 quadrants. No hepatosplenomegaly. No abdominal bruits are auscultated. Skin: The patient has significantly decreased redness and swelling in her bilateral lower extremities as indicated by lines drawn around her areas of erythema upon admission. The patient has no other open areas or rashes. Neuro: Cranial nerves II through XII intact. No focal deficits. Psychiatric: Patient is pleasant and cooperative. DIAGNOSTIC STUDIES/LAB DATA: Laboratory data on day of discharge not available. DISCHARGE PLAN: The patient will be discharged to home to the care of her family and private aide. The patient was instructed to take Augmentin for another 7 days for pneumonia and cellulitis, probably streptococcal. The patient was instructed to increase her Lasix dose to 80 mg p.o. daily until she saw her doctor of nursing practice as well as to weigh herself daily and keep her legs elevated as much as possible. The patient is to continue with her CPAP at night. The patient is to continue to wear oxygen as needed. The patient should return to the hospital for alarming symptoms such as chest pain, significantly increased shortness of breath, significant worsening in the pain in her legs or significantly increased swelling. Referral has been sent out to visiting nurse services, though the family states hesitancy about allowing them into their house. The patient would benefit from custodial skilled physical therapy and occupational therapy; however, if the patient's family are unwilling to work with this then the patient should work with family to increase endurance. This was discussed with the family at this time. The patient should continue to wear leg brace as instructed by Orthopedics. The patient should have a heart healthy diet, consistent carbohydrate without caffeine. The patient should engage in activity as tolerated. TIME SPENT: Approximately 60 minutes were spent on this discharge, 30 of which was spent [id number] with the patient obtaining history and physical and discussing the treatment plan. DONNELL MUSTAFA [id number]/[facility] #: [id number] JOSE ANGEL
== END 2018-02-02 11:45 | disposition home or self-care (01) | DRG 602 ==
LOC: ED 11:28 → MED 14:48
PROVIDERS: ADMIT Internal Medicine; ATTEND Internal Medicine
DX: L03.116 Cellulitis of left lower limb (principal); J15.4 Pneumonia due to other streptococci; J96.11 Chronic respiratory failure with hypoxia; I13.0 Hypertensive heart and chronic kidney disease with heart failure and stage 1 through stage 4 chronic kidney disease, or unspecified chronic kidney disease; E11.22 Type 2 diabetes mellitus with diabetic chronic kidney disease; I48.91 Unspecified atrial fibrillation; I50.32 Chronic diastolic (congestive) heart failure; E66.2 Morbid (severe) obesity with alveolar hypoventilation; J44.0 Chronic obstructive pulmonary disease with (acute) lower respiratory infection; N39.0 Urinary tract infection, site not specified; E11.36 Type 2 diabetes mellitus with diabetic cataract; N18.3 Chronic kidney disease, stage 3 (moderate); E78.5 Hyperlipidemia, unspecified; I25.10 Atherosclerotic heart disease of native coronary artery without angina pectoris; K21.9 Gastro-esophageal reflux disease without esophagitis; M16.0 Bilateral primary osteoarthritis of hip; M19.071 Primary osteoarthritis, right ankle and foot; M19.049 Primary osteoarthritis, unspecified hand; Z96.651 Presence of right artificial knee joint; M17.12 Unilateral primary osteoarthritis, left knee; H40.9 Unspecified glaucoma; M31.6 Other giant cell arteritis; M85.872 Other specified disorders of bone density and structure, left ankle and foot; E83.42 Hypomagnesemia; M19.072 Primary osteoarthritis, left ankle and foot; R74.8 Abnormal levels of other serum enzymes; H54.62 Unqualified visual loss, left eye, normal vision right eye; I45.10 Unspecified right bundle-branch block; B95.5 Unspecified streptococcus as the cause of diseases classified elsewhere; Z86.14 Personal history of Methicillin resistant Staphylococcus aureus infection; Z86.718 Personal history of other venous thrombosis and embolism; Z90.49 Acquired absence of other specified parts of digestive tract; Z86.73 Personal history of transient ischemic attack (TIA), and cerebral infarction without residual deficits; Z86.711 Personal history of pulmonary embolism; Z82.49 Family history of ischemic heart disease and other diseases of the circulatory system; Z87.891 Personal history of nicotine dependence; Z56.0 Unemployment, unspecified; Z91.012 Allergy to eggs; Z88.8 Allergy status to other drugs, medicaments and biological substances; Z83.3 Family history of diabetes mellitus; Z82.3 Family history of stroke; Z80.1 Family history of malignant neoplasm of trachea, bronchus and lung; Z80.3 Family history of malignant neoplasm of breast; Z79.52 Long term (current) use of systemic steroids; Z79.82 Long term (current) use of aspirin; Z79.4 Long term (current) use of insulin; Z68.38 Body mass index [BMI] 38.0-38.9, adult
CPT/HCPCS: 36415; 71045; 80048; 80053; 80061; 80202; 81003; 81015; 82565; 83605; 83735; 84484; 84520; 85025; 85652; 86140; 87077; 87086; 87186; 87502; 93005; 94660; 94760; 99283; A9270-GY; J0456; J0696; J1956; J3370; J3475; J7512

== ENCOUNTER 2020-03-20 06:38 | Observation (INO) | payer MEDICARE, OTHER ==
--- NOTE | 2020-03-20 06:47 | ED ---
Shortness of Breath - HPI Summary HPI Summary: 74-year-old female with a significant past medical history of congestive heart failure, COPD on 2 L of oxygen at home, coronary artery disease, hypertension, GERD, chronic kidney disease, DVT, atrial fibrillation currently on Eliquis presents to the emergency department today complaining of a 10 out of 10 stabbing left anterior chest pain which radiates to her back which is made worse with inspiration and has associated shortness of breath. Patient states she was sitting on her couch when her pain began which she first attributed to gas. Patient states she then went to sleep and awoke and still had symptoms and called an ambulance. Patient denies associated lightheadedness, jaw pain, arm pain, abdominal pain, recent surgery, recent immobilization, recent long distance travel. Patient denies recent weight gain. The patient arrived by ambulance and was given 4 baby aspirin in route. Patient is currently no acute distress and denies fevers, abdominal pain, nasal congestion, nausea, vomiting, diarrhea, pain with urination. - History of Current Complaint Time Seen by Provider: 03/20/20 06:45 Hx Obtained From: Patient Onset/Duration: Gradual Onset, Lasting Hours Timing: Constant Current Severity: Severe Dyspnea At: Rest Alleviating Factors: Oxygen, Upright Position - Allergy/Home Medications Allergies/Adverse Reactions: Allergies Allergy/AdvReac Type Severity Reaction Status Date / Time egg Allergy Severe Vomiting Verified 01/30/18 14:03 argatroban Allergy Unknown Verified 01/30/18 14:03 Reaction Details bacitracin Allergy Rash Verified 01/30/18 14:03 enoxaparin [From Lovenox] Allergy Unknown Verified 01/30/18 14:03 Reaction Details heparin Allergy Unknown Verified 01/30/18 14:03 Reaction Details povidone-iodine Allergy Unknown Verified 01/30/18 14:03 [From Betadine] Reaction Details soap [From Betadine] Allergy Unknown Verified 01/30/18 14:03 Reaction Details 'blood thinners" AdvReac Severe hemmorage,i Uncoded 08/15/17 08:21 nternal Home Medications: Home Medications Aspirin 81 mg CHEW TAB* 81 mg PO DAILY 07/02/15 [History Confirmed 03/20/20] Flecainide* TAB 50 mg PO Q12H 09/08/15 [History Confirmed 03/20/20] Cholecalciferol TAB* [Vitamin D TAB*] 1,000 unit PO DAILY 05/06/17 [History Confirmed 03/20/20] Omeprazole CAP (NF) [Prilosec CAP* 20 MG] 20 mg PO DAILY 05/06/17 [History Confirmed 03/20/20] Pravastatin (NF) [Pravachol (NF)] 40 mg PO QPM 05/06/17 [History Confirmed 03/20] Spironolactone TAB* [Aldactone TAB 25 MG*] 25 mg PO DAILY 08/05/17 [History Confirmed 03/20/20] Acetaminophen [Acetaminophen Extra Strength] 1,000 mg PO Q6HR PRN 01/30/18 [ History Confirmed 03/20/20] Docusate CAP* [Colace Cap*] 100 mg PO BID 01/30/18 [History Confirmed 03/20/20] Insulin Glargine,Hum.rec.anlog [Lantus Solostar 100 units/ml 3 ml x 5 PENS] 15 unit SUBCUT BEDTIME 01/30/18 [History Confirmed 03/20/20] Latanoprost 0.005%* [Xalatan 0.005%*] 1 drop BOTH EYES BEDTIME 01/30/18 [ History Confirmed 03/20/20] Metoprolol Tartrate TAB* [Lopressor TAB*] 25 mg PO BID 01/30/18 [History Confirmed 03/20/20] Multivitamins/Minerals TAB* [Theragran/minerals TAB*] 1 tab PO DAILY 01/30/18 [ History Confirmed 03/20/20] Nystatin TOP POWDER* 1 applic TOPICAL BID PRN 01/30/18 [History Confirmed ] Potassium Chlor TAB* [Potassium Chlor TAB 20 MEQ*] 40 meq PO BID 01/30/18 [ History Confirmed 03/20/20] Furosemide TAB* [Lasix TAB*] 80 mg PO QAM #0 02/02/18 [Rx Confirmed 03/20/20] Apixaban* [Eliquis*] 5 mg PO BID 03/20/20 [History Confirmed 03/20/20] Artificial Tears* 15 ML BTL [Polyvinyl Alcohol 1.4% OPTH*] 1 drop BOTH EYES Q2H PRN 03/20/20 [History Confirmed 03/20/20] Folic Acid TAB* [Folvite TAB*] 1 mg PO DAILY 03/20/20 [History Confirmed ] Insulin LISPRO* [HumaLOG 100 units/ml 3 ml VIAL *] 0 units SUBCUT ACHS MDD 30u 03/20/20 [History Confirmed 03/20/20] LoraTADine TAB(NF) [Claritin 10 MG TAB(NF)] 10 mg PO BEDTIME 03/20/20 [History Confirmed 03/20/20] Magnesium Oxide TAB* [MagOx 400 TAB*] 400 mg PO BID 03/20/20 [History Confirmed 03/20/20] Neomycin/Bacitracin/Polymyxinb [Triple Antibiotic Ointment Pkt] 1 applic TOPICAL BID 03/20/20 [History Confirmed 03/20/20] Nystatin CREAM* [Nystatin Cream*] 1 applic TOPICAL BID 03/20/20 [History Confirmed 03/20/20] Psyllium Husk [Fiber] 0.4 gm PO DAILY 03/20/20 [History Confirmed 03/20/20] predniSONE 1 mg TAB [Deltasone 1 MG TAB*] 1 mg PO DAILY 03/20/20 [History Confirmed 03/20/20] PMH/Surg Hx/FS Hx/Imm Hx Endocrine/Hematology History: Reports: Hx Diabetes - ON INSULIN Denies: Hx Thyroid Disease Cardiovascular History: Reports: Hx Congestive Heart Failure, Hx Coronary Artery Disease, Hx Deep Vein Thrombosis, Hx Hypertension - ON DAILY MEDS, Other Cardiovascular Problems/Disorders - rectus sheath hematoma, paroxysmal Afib Respiratory History: Reports: Hx Chronic Obstructive Pulmonary Disease (COPD), Hx Pneumonia, Hx Pulmonary Embolism, Other Respiratory Problems/Disorders - OBESITY 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/06 Denies: Hx Asthma GI History: Reports: Hx Gastroesophageal Reflux Disease History: Reports: Other Problems/Disorders - CKD Musculoskeletal History: Reports: Hx Arthritis - bilat knees, HIPS, ANKLE RT, FINGERS, Hx Back Problems, Other Musculoskeletal History - Right total knee replacement 2010 Sensory History: Reports: Hx Cataracts - RT EYE, Hx Contacts or Glasses - Blind in L eye. Glasses at home, Hx Glaucoma - right eye, Hx Legally Blind - Left eye , Hx Vision Problem - blind L eye, Hx Hearing Problem - [place] Denies: Hx Hearing Aid Opthamlomology History: Reports: Hx Cataracts - RT EYE, Hx Contacts or Glasses - Blind in L eye. Glasses at home, Hx Glaucoma - right eye, Hx Legally Blind - Left eye, Hx Vision Problem - blind L eye Neurological History: Denies: Hx Dementia, Hx Seizures - Surgical History Surgery Procedure, Year, and Place: 2010 R TKA [place]. 1964 [facility]. 1962 Tonsilectomy [place]. 1979 cholecysectomy [place]. 1982 C- SECTION [place]. 2013 umbrella filter inserted , [place]. 2015 right ankle [place]. 2012 hernia repair, [place] Hx Anesthesia Reactions: No Infectious Disease History: Reports: Hx of Known/Suspected MRSA - Family History Known Family History: Positive: Cardiac Disease Negative: Blood Disorder - Social History Alcohol Use: None Hx Substance Use: No Substance Use Type: Reports: None Smoking Status (MU): Former Smoker Type: Cigarettes Amount Used/How Often: 1PPWEEK 25 YRS Have You Smoked in the Last Year: No Review of Systems Constitutional: Negative Eyes: Negative ENT: Negative Positive: Chest Pain Positive: Shortness Of Breath Gastrointestinal: Negative Genitourinary: Negative Musculoskeletal: Negative Skin: Negative Neurological/Mental Status: Negative Psychological: Normal All Other Systems Reviewed And Are Negative: Yes Physical Exam - Summary Physical Exam Summary: Patient is in no acute distress resting comfortably on the hospital stretcher. Patient is satting at approximately 94% on 2 L via nasal cannula. Patient is able to speak in full non-broken sentences with no evidence of accessory muscle use and no audible wheezing or stridor. No evidence of cyanosis. No evidence of diaphoresis. Triage Information Reviewed: Yes Vital Signs Reviewed: Yes Appearance: Positive: Well-Appearing, No Pain Distress, Well-Nourished Skin: Positive: Warm, Skin Color Reflects Adequate Perfusion Eyes: Positive: EOMI, GUDELIA ENT: Positive: Hearing grossly normal Respiratory/Lung Sounds: Positive: Breath Sounds Present, Decreased Breath Sounds, Rales. Negative: Stridor, Tracheal Deviation, Wheezes, Unable to speak in full sentences Cardiovascular: Positive: IRR, S1, S2 Abdomen Description: Positive: Nontender, Soft Bowel Sounds: Positive: Present Musculoskeletal: Positive: Strength/ROM Intact Neurological: Positive: Sensory/Motor Intact, Alert, Oriented to Person Place, Time, Facial Symmetry, Speech Normal Psychiatric: Positive: Normal, Affect/Mood Appropriate AVPU Assessment: Alert Procedures - Sedation Patient Received Moderate/Deep Sedation with Procedure: No Diagnostics - Laboratory Result Diagrams: 03/20/20 07:03 03/20/20 07:03 Lab Statement: Any lab studies that have been ordered have been reviewed, and results considered in the medical decision making process. Course/Dx - Course Course Of Treatment: Patient was evaluated in the emergency department today for shortness of breath. Vitals noted and stable. Patient is not hypoxic on 2 L of oxygen via nasal cannula and has no evidence of significant respiratory distress. EKG was done promptly which showed no evidence of STEMI. Patient is in atrial fibrillation at a rate of 102 bpm. There is evidence of an old inferior infarct and prolonged QT. QTC is 548. No concerning changes evident of significant ischemia when compared to prior EKG done on 01/31/2018. Urinalysis appears to be contaminated and patient is asymptomatic for UTI. Labs returned showing no evidence of leukocytosis with a white blood cell count of 10.3. CRP is elevated at 29. No significant anemia. There are no significant electrolyte disturbances. BUN 35, creatinine 1.3, this is the Patients baseline. GFR 40.2. Lipase negative for Pancreatitis. VBG returned showing a fully compensated respiratory acidosis which is consistent with her history of COPD likely. BUN 201, this is higher than the patients base line, which is suggestive of acute on chronic CHF. Initial Troponin 0.00, repeat troponin is 0.00. HEART score: 6. D-Dimer Significantly elevated at 939. Chest xray shows cardiogenic pulmonary edema with atelectasis and/or effusion of the left lung base. Chest CTA was done due to an elevated D-Dimer which shows no pulmonary embolism identified. Webbing within the left lower lobar pulmonary artery is similar from 2015. Could be stigmata of prior embolus or congenital. Findings suggestive of pulmonary hypertension. Mild pulmonary edema is likely. Cardiomegaly with coronary artery calcifications. Mitral valve annulus calcified. Osteopenia with several age indeterminate compression fractures at T7 and T10. PT dyspnea appears to be secondary to acute on chronic CHF. Pt given 40mg Lasix. Hospitalist, Dr. Thomason was consulted for admission due to chest pain with high HEART score of 6, dyspnea, acute on chronic heart failure. Hospitalist agrees to admit the patient for further evaluation and management of chest pain with echocardiogram and stress test. - Diagnoses Provider Diagnoses: Heart failure, Dyspnea - Physician Notifications Discussed Care of Patient With: Myah Thomason - agreed to admit the patient for chest pain with a high heart score for further evaluation and management with echocardiogram and stress test in the morning. Instructed by Provider To: Admit As Inpatient - Critical Care Time Critical Care Statement: Critical care time is provided exclusive of any time spent performing procedures. Discharge ED - Sign-Out/Discharge Documenting (check all that apply): Patient Departure - Discharge Plan Condition: Stable Disposition: ADMITTED TO [facility] - Billing Disposition and Condition Condition: STABLE Disposition: Admitted to [facility] - Attestation Statements Provider Attestation: I was available for consultation for this patient. I did not evaluate the patient or participate in any medical decision making or disposition decisions unless I am specifically named in the chart as having consulted on the patient. If I have consulted on the patient, please see my own ED note on the patient encounter. Mike Edwards MD
--- OUTSIDE RECORDS SUMMARY | 2020-03-20 06:53 | XMS REPORT | Continuity of Care Document ---
:1945 External Reference #:[id number] Author Name Kolton Nguyen MD (transmitted by agent of provider Kristen Riojas) Address [address] [place] [address] Care Team Providers Name Role Phone Cherise Donovan MD - Internal Medicine Care Team Information Solderer Dipper [phone] Yessica Salinas NP - Family Care Team Information Solderer Dipper [phone] Problems Active Problems Provider Date Preoperative cardiovascular examination Jorge Stein, Onset: 2012 Suni, [facility] Type 2 diabetes mellitus Jorge Stein, Onset: 03/28/2013 Suni, [facility] Essential hypertension Jorge Stein, Onset: 03/28/2013 Suni, [facility] Incisional hernia Jorge Stein, Onset: 03/28/2013 Suni, [facility] Pulmonary embolism Racheal Miguel, Onset: 05/28/2013 MSN, CHEMISTRY SPECIALIST Tachycardia Racheal Miguel, Onset: 05/28/2013 MSN, CHEMISTRY SPECIALIST Microscopic hematuria Kiara Gasca M.D. Onset: 11/01/2017 Mixed urinary incontinence Kiara Gasca M.D. Onset: 11/01/2017 Chronic kidney disease stage 3 Kiara Gasca M.D. Onset: 11/24/2017 Late effect of fracture of spine AND/OR Emilee Bridges MD Onset: 12/16/2017 trunk without spinal cord lesion Late effect of fracture of lower Emilee Bridges MD Onset: 12/16/2017 extremities Senile asthenia Emilee Bridges MD Onset: 12/16/2017 Chronic diastolic heart failure Jorge Stein, Onset: 02/06/2018 Suni, [facility] Paroxysmal atrial fibrillation Jorge Stein, Onset: 02/06/2018 Suni, [facility] Giant cell arteritis Melo Davis MD Onset: 02/23/2018 Presence of intraocular lens Melo Davis MD Onset: 02/23/2018 Combined form of senile cataract Melo Davis MD Onset: 02/23/2018 Ocular hypertension Melo Davis MD Onset: 02/23/2018 Hyperlipidemia Racheal Miguel, Onset: 08/09/2018 MSN, ELIAS Arthritis Onset: 09/28/2018 Ankle pain Onset: 09/28/2018 Cellulitis Onset: 09/28/2018 Anemia Onset: 09/23/2014 Hematoma Onset: 09/22/2014 Hypercalcemia Onset: 09/12/2014 Dehydration Onset: 09/12/2014 Leukocytosis Onset: 09/12/2014 Pneumonia Onset: 09/12/2014 INR raised Onset: 09/12/2014 Cellulitis and abscess of foot excluding Onset: 08/26/2014 toe Congestive heart failure Onset: 08/26/2014 Vitamin deficiency Mindy Harper DO Onset: 10/10/2018 Deep venous thrombosis of peroneal vein Mindy Harper DO Onset: 2017 Methylenetetrahydrofolate reductase Mindy Harper DO Onset: 11/24/2018 deficiency Hypercoagulability state Mindy Harper DO Onset: 11/24/2018 Iron deficiency Mindy Harper DO Onset: 01/01/2019 Deep venous thrombosis of lower extremity Jorge Stein, Onset: 2018 Suni, [facility] Extreme obesity with alveolar Jorge Stein, Onset: 01/22/2019 hypoventilation Suni, [facility] Malaise and fatigue Jorge Stein, Onset: 01/22/2019 Suni, [facility] Social History Type Date Description Comments Sex Unknown Tobacco Use Start: Unknown End: Quit Unknown Smoking Status Reviewed: 01/29/20 Quit ETOH Use Denies alcohol use Recreational Drug Use Denies Drug Use Tobacco Use Start: Unknown End: Patient is a former smoker Quit 1981 Unknown Exercise Type/Frequency Does not exercise Allergies, Adverse Reactions, Alerts Active Allergies Reaction Severity Comments Date Betadine 01/27/2009 Tape 01/27/2009 Eggs 03/26/2009 Sulfadiazine 06/13/2009 Sulfa Drugs 11/01/2017 Bacitracin 12/15/2017 Anticoagulant Compound nearly caused in 2013 Severe 12/15/2017 Iodine 12/15/2017 Medications Active Medications SIG Qnty Indications Ordering Date Provider Folic Acid 1 tabl by mouth 90tabs Leroy, 11/29/2018 1mg Tablets every day DO Mindy Portable Oxygen 2.5 L/min Hung Hernandez, 02/07/2018 Concentrator Diagnosis: MD GABRIEL Restrictive Lung Disease Latanoprost Instill 1 Drop Into 2.5units H40.053 Melo Davis, 12/29/2017 0.005% Each Eye AT Night Solution Potassium Chloride take two tablets by I50.32 Latia Miguela 12/16/2017 Yanelis ER mouth twice a day. Kash, 20Meq Tablets MSN, CHEMISTRY SPECIALIST ER Furosemide Take One Tablet By 150tabs I50.32 Sarita, 12/16/2017 40mg Tablets Mouth Every Day Jorge Perera, With 2ND Tablet as M.D., FACC Needed For Swelling Doxycycline Hyclate Unknown 100mg Capsules Artificial Tears PF as needed Unknown 0.1-0.3% Solution Omeprazole Once Daily 90caps Unknown 20mg Capsules DR Magnesium Oxide Take One Tablet By 60tabs Lamont Racheal 400mg Mouth Twice A Day [place], Tablets MSN, CHEMISTRY SPECIALIST Vitamin D3 Once Daily 90tabs Unknown 1000Unit Tablets Aspirin Ec Low Dose Once Daily Unknown 81mg Tablets DR Fosamax 1/2 tablet once a Unknown 70mg Tablets week Metoprolol Tartrate 1 by mouth twice a Miguel, Racheal day Simonetta, 25mg Tablets MSN, CHEMISTRY SPECIALIST Vitamin B12 1 by mouth once a Unknown 1000mcg day Tablets ER Nystatin as needed Unknown Powder Multi Complete 1 by mouth every Unknown day Capsules Loratadine-Pseudoephe 1 Tab Daily Unknown drine ER 10-240mg Tablets ER 24HR Humalog Kwikpen per sliding scale Unknown 100Unit/ML Solution Pen-Inject Lantus Solostar 15u subcutaneous Unknown qhs 100Unit/ML Solution Pen-Inject Fiber Formula 2 tabs by mouth bid Unknown Capsules Colace 1 tab by mouth Unknown 100mg Capsules twice a day as needed for constipation Tylenol Extra 1-2 tabs by mouth Unknown Strength every 4 hours as 500mg Tablets needed Spironolactone 1 by mouth every Unknown 25mg day Tablets Flecainide Acetate take one tablet by Unknown 50mg mouth twice a day Tablets Pravastatin Sodium 1 po Daily Unknown 40mg Medications Administered in Office Medication SIG Qnty Indications Ordering Provider Date Depomedrol 40mg/1cc Nirav Wesley DO 08/08/2009 (methylprednisolone acetate) Injection Depomedrol 40mg/1cc Gwen Aldridge MD 01/27/2009 (methylprednisolone acetate) Injection Depomedrol 40mg/1cc Gwen Aldridge MD 03/26/2008 (methylprednisolone acetate) Injection Depomedrol 40mg/1cc Gwen Aldridge MD 09/05/2007 (methylprednisolone acetate) Injection Depomedrol 40mg/1cc Gwen Aldridge MD 03/28/2007 (methylprednisolone acetate) Injection Immunizations Description No Information Available Vital Signs Date Vital Result Comment 01/29/2020 1:09pm BP Systolic Sitting Right Arm 112 mmHg BP Diastolic Sitting Right Arm 64 mmHg Heart Rate 80 /min Respiratory Rate 18 /min Height 64 inches 5'4" Weight 192.00 lb BMI (Body Mass Index) 33.0 kg/m2 BSA (Body Surface Area) 1.92 m2 [place] body weight in kilograms 54 kg O2 % BldC Oximetry 96 % 2L 12/28/2019 1:38pm BP Systolic 101 mmHg BP Diastolic 64 mmHg Body Temperature 98.4 F Heart Rate 69 /min Respiratory Rate 20 /min Weight 194.00 lb Pain Level 0 O2 % BldC Oximetry 9622 % Results Test Acquired Date Facility Test Result H/L Range Note CBC 12/06/2019 [facility] White Blood 10.0 K/uL Normal 3.1-10.7 1 W/Automated [address] [place] [address] [phone] Red Blood Count 4.48 M/uL Normal 3.90-5.40 Hemoglobin 14.1 gm/dL Normal 11.6-15.8 Hematocrit 45.1 % Normal 36.0-46.1 Mean Cell Volume 100.7 fl High 80.9-99.0 Mean Corpuscular HGB 31.5 pg Normal 25.9-32.7 Mean Corpuscular HGB Conc 31.3 g/dL Normal 30.8-34.3 Platelet Count 268 K/uL Normal 155-360 Red Cell Distri Width SD 50.3 fl High 36-47 Red Cell Distri Width %CV 13.4 % Normal 11.7-14.4 Mean Platelet Volume 10.6 fl Normal 8.9-12.4 Neut% 71.1 % Normal 40.4-72.8 Lymph % 19.9 % Low 20.0-42.0 [place] % 7.3 % Normal 4.3-13.2 Eo% 0.8 % Normal 0.0-6.6 Bas% 0.5 % Normal 0.0-1.1 Immature Grans 0.4 % Normal 0.0-5.0 NRBC % 0.0 /100WBC < 10/ 100 WBC Neut# 7.12 K/uL High 1.8-7.0 Lymph # 1.99 K/uL Normal 1.0-4.0 [place] # 0.73 K/uL Normal 0.3-0.9 Eos # 0.08 K/uL Normal 0.0-0.5 Baso # 0.05 K/uL Normal 0.0-0.1 Immature Grans Absolute 0.04 K/uL NRBC # 0.00 K/uL Vitamin B12 And 12/06/2019 [facility] Vitamin B12 1010 pg/mL High 193-986 Folate [address] [place] [address] [phone] Folic Acid > 20.0 ng/mL High 3.1-17.5 Iron-Tibc-%Sat 12/06/2019 [facility] Serum Iron 71 g/dL Normal 50-170 [address] [place] [address] [phone] Total Iron Binding Capacity 282 g/dL Normal 250-450 Transferrin %Saturation 25 % Normal 12-57 Laboratory test 12/06/2019 [facility] Ferritin 52 ng/mL Normal 8-252 finding [address] [place] [address] [phone] Comprehensive 12/06/2019 [facility] Glucose 161 mg/dL High 74-106 Metabolic Panel [address] [place] [address] [phone] BUN 42 mg/dL High 7-18 Creatinine 1.6 mg/dL High 0.6-1.3 Glom Filtration Rate, Estimate 34 mL/min >60 If 41 mL/min >60 2 BUN/Creat 26.2 ratio Sodium 136 mmol/L Normal 136-145 Potassium 4.0 mmol/L Normal 3.5-5.1 Chloride 98 mmol/L Normal 98-107 Carbon Dioxide 34 mmol/L High 21-32 Anion Gap 4 mEq/L Low 8-16 Calcium 9.2 mg/dL Normal 8.5-10.1 Total Protein 7.7 g/dL Normal 6.4-8.2 Albumin 3.4 g/dL Normal 3.4-5.0 Globulin 4.3 g/dL Normal 1.9-4.3 Alb/Glob 0.8 ratio Bilirubin,Total 0.6 mg/dL Normal 0.2-1.0 Sgot/Ast 20 U/L Normal 15-37 SGPT/Alt 19 U/L Normal 12-78 Alkaline Phosphatase 71 U/L Normal 45-117 1 I82.419 E61.1 E56.9 2 Note: Persistent reduction for 3 months or more in an eGFR <60 mL/min/1.73 m2 defines CKD. Patients with eGFR values >/=60 mL/min/1.73 m2 may also have CKD if evidence of persistent proteinuria is present. The original MDRD equation for estimated GFR is not valid for patients less than 18 years of age. Additional information may be found at www.kdoqi.org. 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) Nazia BSandra, use of [employer] anticoagulants E61.1 Iron deficiency Office Visit 12/06/2019 Cardiology Racheal Miguel I48.0 Paroxysmal atrial 2:20p Office JOSE Hewitt, fibrillation CHEMISTRY SPECIALIST I50.32 Chronic diastolic (congestive) heart failure I82.419 Acute embolism and thrombosis of unspecified femoral vein Assessments Date Code Description Provider 01/29/2020 E66.2 Morbid (severe) obesity with alveolar Kolton Nguyen MD hypoventilation 01/29/2020 J96.12 Chronic respiratory failure with Kolton Nguyen MD hypercapnia 01/29/2020 I26.99 Other pulmonary embolism without Kolton Nguyen MD acute cor pulmonale 01/08/2020 E11.9 Type 2 diabetes mellitus without Melo Davis MD complications 01/08/2020 E11.9 Type 2 diabetes mellitus without Nazia Holguin, [employer] complications 01/08/2020 H40.053 Ocular hypertension, bilateral Melo Davis MD 01/08/2020 H40.053 Ocular hypertension, bilateral Nazia Holguin, [employer] 01/08/2020 M31.6 Other giant cell arteritis Melo Davis MD 01/08/2020 M31.6 Other giant cell arteritis Nazia Holguin, [employer] 01/08/2020 H04.123 Dry eye syndrome of bilateral Melo Davis MD lacrimal glands 01/08/2020 H04.123 Dry eye syndrome of bilateral Nazia Holguin, [employer] lacrimal glands 01/08/2020 H25.812 Combined forms of age-related Melo Davis MD cataract, left eye 01/08/2020 H25.812 Combined forms of age-related Nazia Holguin, [employer] cataract, left eye 01/08/2020 Z96.1 Presence of intraocular lens Nazia Holguin, [employer] 01/08/2020 Z96.1 Presence of intraocular lens Melo Davis MD 12/28/2019 Z79.01 group home (current) use of Nazia Holguin, [employer] anticoagulants 12/28/2019 E61.1 Iron deficiency Nazia Holguin, [employer] 12/06/2019 I82.419 Acute embolism and thrombosis of LocoMindy chun, unspecified femoral vein 12/06/2019 I82.419 Acute embolism and thrombosis of Oncology Nurse unspecified femoral vein 12/06/2019 E61.1 Iron deficiency Mindy Harper, DO 12/06/2019 E61.1 Iron deficiency Oncology Nurse 12/06/2019 E56.9 Vitamin deficiency, unspecified Mindy Harper, DO 12/06/2019 E56.9 Vitamin deficiency, unspecified Oncology Nurse 12/06/2019 I48.0 Paroxysmal atrial fibrillation Racheal Miguel, JOSE, CHEMISTRY SPECIALIST 12/06/2019 I50.32 Chronic diastolic (congestive) heart Racheal Miguel, MSN, failure CHEMISTRY SPECIALIST 12/06/2019 I82.419 Acute embolism and thrombosis of Racheal Miguel, JOSE, unspecified femoral vein CHEMISTRY SPECIALIST Plan of Treatment Future Appointment(s):09/30/2020 1:00 pm - Tj Higgins MD at Pbniigcdzov37 /08/2020 10:30 am - Mindy Harper DO at Oncology Ahzjez7007/08/2020 1:00 pm - Melo Davis MD at Cbltiwxbfulkx54/01/2020 1:00 pm - Oncology Nurse at Oncology Deuyas3411/27/2020 1:40 pm - Jorge Stein M.D., FACC at Cardiology Office Functional Status Functional Condition Comment Date Status Independent with all ADL's Active Oxygen Active Independent with all IADL's Active Manual wheelchair is used to ambulate Active Glasses Active Brace right lower limb ankle Active Mental Status Description No Information Available Referrals Description No Information Available
--- OUTSIDE RECORDS SUMMARY | 2020-03-20 06:53 | XMS REPORT | Continuity of Care Document ---
:1945 External Reference #:[id number] Author Name Kolton Nguyen MD Address [address] [place] [address] Care Team Providers Name Role Phone Cherise Donovan MD - Internal Medicine Care Team Information Bone Crusher [phone] Yessica Salinas NP - Family Care Team Information Bone Crusher Problems Active Problems Provider Date Preoperative cardiovascular examination Jorge Stein, Onset: 2012 Suni, [facility] Type 2 diabetes mellitus Jorge Stein, Onset: 03/28/2013 Suni, [facility] Essential hypertension Jorge Stein, Onset: 03/28/2013 Suni, [facility] Incisional hernia Jorge Stein, Onset: 03/28/2013 Suni, [facility] Pulmonary embolism Racheal Miguel, Onset: 05/28/2013 MSN, [employer] Tachycardia Racheal Miguel, Onset: 05/28/2013 MSN, [employer] Microscopic hematuria Kiara Gasca M.D. Onset: 11/01/2017 [...] heart failure Jorge Stein, Onset: 02/06/2018 Suni, [facility] Paroxysmal atrial fibrillation Jorge Stein, Onset: 02/06/2018 Suni, [facility] Giant cell arteritis Melo Davis MD Onset: 02/23/2018 Presence of intraocular lens Melo Davis MD Onset: 02/23/2018 Combined form of senile cataract Melo Davis MD Onset: 02/23/2018 Ocular hypertension Melo Davis MD Onset: 02/23/2018 Hyperlipidemia Racheal Miguel, Onset: 08/09/2018 MSN, [employer] Arthritis Onset: 09/28/2018 Ankle pain Onset: 09/28/2018 [...] lower extremity Jorge Stein, Onset: 2018 Suni, [facility] Extreme obesity with alveolar Jorge Stein, Onset: 01/22/2019 hypoventilation Suni, [facility] Malaise and fatigue Jorge Stein, Onset: 01/22/2019 Suni, [facility] Social History Type Date Description Comments [...] Folic Acid 1 tabl by mouth 90tabs Boufal, 11/29/2018 1mg Tablets every day DO Mindy Portable Oxygen 2.5 L/min Hung Hernandez, 02/07/2018 Concentrator Diagnosis: MD GABRIEL Restrictive Lung Disease Latanoprost Instill 1 Drop Into 2.5units H40.053 Melo Davis, 12/29/2017 0.005% Each Eye AT Night Solution Potassium Chloride take two tablets by I50.32 Miguel, Racheal 12/16/2017 [facility] mouth twice a day. Kash, 20Meq Tablets MSN, E[employer]ATOR E[employer] HEL[employer] ER Furosemide Take One Tablet By 150tabs I50.32 Sairta, 12/16/2017 40mg Tablets Mouth Every Day Jorge Perera, With 2ND Tablet as M.D., FACC Needed For Swelling Doxycycline Hyclate Unknown 100mg Capsules Artificial Tears PF as needed Unknown 0.1-0.3% Solution Omeprazole Once Daily 90caps Unknown 20mg Capsules DR Magnesium Oxide Take One Tablet By 60tabs Miguel, Racheal 400mg Mouth Twice A Day Shemaretta, Tablets MSN, E[employer] E[employer] Vitamin D3 Once Daily 90tabs Unknown 1000Unit Tablets Aspirin Ec Low Dose Once Daily Unknown 81mg Tablets DR Fosamax 1/2 tablet once a Unknown 70mg Tablets week Metoprolol Tartrate 1 by mouth twice a Miguel, Racheal day Shemaretta, 25mg Tablets MSN, E[employer]ATOR E[employer] HEL[employer] Vitamin B12 1 by mouth once a [...] Indications Ordering Provider Date Depomedrol 40mg/1cc Nirav Wesley, 08/08/2009 (methylprednisolone acetate) Injection Depomedrol 40mg/1cc Gwen [...] kg/m2 BSA (Body Surface Area) 1.92 m2 Compton body weight in kilograms 54 kg O2 [...] 10.0 K/uL Normal 3.1-10.7 1 W/Automated [address] [place] [address] [phone] Red Blood Count 4.48 M/uL Normal 3.90-5.40 [...] 40.4-72.8 Lymph % 19.9 % Low 20.0-42.0 Taliaferro % 7.3 % Normal 4.3-13.2 Eo% 0.8 % Normal 0.0-6.6 Bas% 0.5 % Normal 0.0-1.1 Immature Grans 0.4 % Normal 0.0-5.0 NRBC % 0.0 /100WBC < 10/ 100 WBC Neut# 7.12 K/uL High 1.8-7.0 Lymph # 1.99 K/uL Normal 1.0-4.0 Taliaferro # 0.73 K/uL Normal 0.3-0.9 Eos # 0.08 K/uL Normal 0.0-0.5 Baso # 0.05 K/uL Normal 0.0-0.1 Immature Grans Absolute 0.04 K/uL NRBC # 0.00 K/uL Vitamin B12 And 12/06/2019 [facility] Vitamin B12 1010 pg/mL High 193-986 Folate [address] [place] [address] [phone] Folic Acid > 20.0 ng/mL High 3.1-17.5 Iron-Tibc-%Sat 12/06/2019 [facility] Serum Iron 71 g/dL Normal 50-170 [address] [place] [address] [phone] Total Iron Binding Capacity 282 g/dL Normal 250-450 Transferrin %Saturation 25 % Normal 12-57 Laboratory test 12/06/2019 [facility] Ferritin 52 ng/mL Normal 8-252 finding [address] [place] [address] [phone] Comprehensive 12/06/2019 [facility] Glucose 161 mg/dL High 74-106 Metabolic Panel [address] [place] [address] [phone] BUN 42 mg/dL High 7-18 Creatinine 1.6 [...] 12-78 Alkaline Phosphatase 71 U/L Normal 45-117 CBC W/Automated 08/01/2019 [facility] White Blood 13.4 K/uL High 3.1-10.7 3 Diff [address] [place] [address] [phone] Red Blood Count 4.12 M/uL Normal 3.90-5.40 Hemoglobin 13.4 gm/dL Normal 11.6-15.8 Hematocrit 42.1 % Normal 36.0-46.1 Mean Cell Volume 102.2 fl High 80.9-99.0 Mean Corpuscular HGB 32.5 pg Normal 25.9-32.7 Mean Corpuscular HGB Conc 31.8 g/dL Normal 30.8-34.3 Platelet Count 259 K/uL Normal 155-360 Red Cell Distri Width SD 50.3 fl High 36-47 Red Cell Distri Width %CV 13.3 % Normal 11.7-14.4 Mean Platelet Volume 10.7 fl Normal 8.9-12.4 Neut% 81.9 % High 40.4-72.8 Lymph % 11.4 % Low 20.0-42.0 Taliaferro % 5.3 % Normal 4.3-13.2 Eo% 0.6 % Normal 0.0-6.6 Bas% 0.4 % Normal 0.0-1.1 Immature Grans 0.4 % Normal 0.0-5.0 NRBC % 0.0 /100WBC < 10/ 100 WBC Neut# 10.95 K/uL High 1.8-7.0 Lymph # 1.52 K/uL Normal 1.0-4.0 Taliaferro # 0.71 K/uL Normal 0.3-0.9 Eos # 0.08 K/uL Normal 0.0-0.5 Baso # 0.06 K/uL Normal 0.0-0.1 Immature Grans Absolute 0.05 K/uL NRBC # 0.00 K/uL Vitamin B12 And 08/01/2019 [facility] Vitamin B12 958 pg/mL Normal 193-986 Folate [address], [place] [id number] [phone] Folic Acid > 20.0 ng/mL High 3.1-17.5 Iron-Tibc-%Sat 08/01/2019 [facility] Serum Iron 92 g/dL Normal 50-170 [address], [place] [id number] [phone] Total Iron Binding Capacity 252 g/dL Normal 250-450 Transferrin %Saturation 37 % Normal 12-57 Laboratory test 08/01/2019 [facility] Ferritin 71 ng/mL Normal 8-252 finding [address], [place] [address] [phone] Comprehensive 08/01/2019 [facility] Glucose 220 mg/dL High 74-106 Metabolic Panel [address], [place] [id number] [phone] BUN 37 mg/dL High 7-18 Creatinine 1.8 mg/dL High 0.6-1.3 Glom Filtration Rate, Estimate 29 mL/min >60 If 36 mL/min >60 4 BUN/Creat 20.5 ratio Sodium 140 mmol/L Normal 136-145 Potassium 4.5 mmol/L Normal 3.5-5.1 Chloride 97 mmol/L Low 98-107 Carbon Dioxide 36 mmol/L High 21-32 Anion Gap 7 mEq/L Low 8-16 Calcium 9.3 mg/dL Normal 8.5-10.1 Total Protein 7.1 g/dL Normal 6.4-8.2 Albumin 3.6 g/dL Normal 3.4-5.0 Globulin 3.5 g/dL Normal 1.9-4.3 Alb/Glob 1.0 ratio Bilirubin,Total 0.5 mg/dL Normal 0.2-1.0 Sgot/Ast 24 U/L Normal 15-37 SGPT/Alt 20 U/L Normal 12-78 Alkaline Phosphatase 58 U/L Normal 45-117 Laboratory test 08/01/2019 [facility] Sedimentation Rate 115 mm/hr High 2-55 5 finding [address] [place] [address] [phone] LDH 159 U/L Normal 84-246 1 I82.419 E61.1 E56.9 2 Note: Persistent [...] Additional information may be found at www.kdoqi.org. 3 I82.419 E56.9 I82.419 4 Note: Persistent reduction for 3 months or more in an eGFR <60 mL/min/1.73 m2 defines CKD. Patients with eGFR values >/=60 mL/min/1.73 m2 may also have CKD if evidence of persistent proteinuria is present. The original MDRD equation for estimated GFR is not valid for patients less than 18 years of age. Additional information may be found at www.kdoqi.org. 5 This result was obtained with an ESR method that is not based on the standard Westergren Method. When comparing results obtained from the traditional Westergren ESR and this method it is important to refer to the reference range for each method. Method: Capillary Photometry Procedures Date Code Description Status 01/08/2020 60883 Eye Exam Est Patient Comprehensive Completed 12/06/2019 24604 EKG-Tracing And Report Completed Medical Devices Description No Information Available Encounters Type Date Location Provider Dx Diagnosis Office Visit 12/28/2019 Oncology Office Nazia Holguin Z79.01 custodial ( current) 2:00p B., EQUINE BREEDER use of anticoagulants E61.1 Iron deficiency Office Visit 12/06/2019 Cardiology Racheal Miguel I48.0 Paroxysmal atrial 2:20p Office JOSE Hewitt, fibrillation ELEVATOR E[employer]OR HELPER I50.32 Chronic diastolic (congestive) heart failure I82.419 Acute embolism and thrombosis of unspecified femoral vein Office Visit 08/07/2019 1:30p Infusion Center Chelsie 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053 Ocular hypertension, bilateral Nazia Holguin, EQUINE BREEDER 01/08/2020 M31.6 Other giant cell arteritis Melo Davis MD 01/08/2020 M31.6 Other giant cell arteritis Nazia Holguin, EQUINE BREEDER 01/08/2020 H04.123 Dry eye syndrome of bilateral Melo Davis MD lacrimal glands 01/08/2020 H04.123 Dry eye syndrome of bilateral Nazia Holguin, EQUINE BREEDER lacrimal glands 01/08/2020 H25.812 Combined forms of age-related Melo Davis MD cataract, left eye 01/08/2020 H25.812 Combined forms of age-related Nazia Holguin, EQUINE BREEDER cataract, left eye 01/08/2020 Z96.1 Presence of intraocular lens Melo Davis MD 01/08/2020 Z96.1 Presence of intraocular lens Nazia Holguin, EQUINE BREEDER 12/28/2019 Z79.01 custodial (current) use of Nazia Holguin, EQUINE BREEDER anticoagulants 12/28/2019 E61.1 Iron deficiency Nazia Holguin, EQUINE BREEDER 12/06/2019 I82.419 Acute embolism and thrombosis of Mindy Harper, DO unspecified femoral vein 12/06/2019 I82.419 Acute embolism and thrombosis of Oncology Nurse unspecified femoral vein 12/06/2019 E61.1 Iron deficiency Verona Harpert, DO 12/06/2019 E61.1 Iron deficiency Oncology Nurse 12/06/2019 E56.9 Vitamin deficiency, unspecified LizaalVeronat, DO 12/06/2019 E56.9 Vitamin deficiency, unspecified Oncology Nurse 12/06/2019 I48.0 Paroxysmal atrial fibrillation Racheal Miguel, JOSE, [employer] HEL[employer] 12/06/2019 I50.32 Chronic diastolic (congestive) heart Racheal Miguel, JOSE, failure ELEVATOR ERECTOR HELPER 12/06/2019 I82.419 Acute embolism and thrombosis of Racheal Miguel, JOSE, unspecified femoral vein [facility] 08/07/2019 Z79.01 custodial (current) use of Nazia Holguin, EQUINE BREEDER anticoagulants 08/01/2019 I82.419 Acute embolism and thrombosis of Mindy Harper, DO unspecified femoral vein 08/01/2019 I82.419 Acute embolism and thrombosis of Oncology Nurse unspecified femoral vein 08/01/2019 E56.9 Vitamin deficiency, unspecified Verona Harpert, DO 08/01/2019 E56.9 Vitamin deficiency, unspecified Oncology Nurse 08/01/2019 I82.491 Acute embolism and thrombosis of Mindy Harper, DO other specified deep vein of right lower extremity 08/01/2019 I82.491 Acute embolism and thrombosis of Oncology Nurse other specified deep vein of right lower extremity Plan of Treatment Future Appointment(s):09/30/2020 1:00 pm - Tj Higgins MD at Nijdhlqjutd08 /08/2020 10:30 am - Mindy Harper DO at Oncology Yfvttz9507/08/2020 1:00 pm - Melo Davis MD at Hwyhsdrkhuhkc06/01/2020 1:00 pm - Oncology Nurse at Oncology Lqzvoa7411/27/2020 1:40 pm - Jorge Stein M.D., FACC at Cardiology Office Functional Status Functional Condition Comment Date Status Independent with all ADL's Active Oxygen Active Independent with all IADL's Active Manual wheelchair is used to ambulate Active Glasses Active Brace right lower limb ankle Active Mental Status Description No Information Available Referrals Description No Information Available
[2020-03-20 07:16] LABS: ABS Basophils 0.1 10^3/ul (0-0.2); ABS Eosinophils 0.2 10^3/ul (0-0.6); ABS Lymphocytes 1.9 10^3/ul (1.0-4.8); ABS Neutrophils 7.1 10^3/ul (1.5-7.7); Eosinophil % 2.4 %; Hematocrit 37 % (35-47); Hemoglobin 12.7 g/dL (12.0-16.0); Lymphocyte % 18.7 %; Mean Corpuscular HGB Conc 34 g/dL (31-36); Mean Corpuscular Hemoglobin 33 pg (27-31); Mean Corpuscular Volume 95 fL (80-97); Mean Platelet Volume 7.6 fL (7.4-10.4); Platelet Count 315 10^3/uL (150-450); Red Blood Count 3.88 10^6 /uL (3.70-4.87); Red Cell Distribution Width 14 % (10-15); White Blood Count 10.3 10^3/uL (3.5-10.8)
[2020-03-20 07:34] LABS: Albumin 3.8 g/dL (3.2-5.2); Albumin/Globulin Ratio 1.1 (1-3); BUN/Creatinine Ratio 26.9 (8-20); C Reactive Protein 29.12 mg/L (<8.01); EGFR African American 48.6 (>60); EGFR Non-African American 40.2 (>60); Globulin 3.6 g/dL (2-4); Potassium 4.5 mmol/L (3.5-5.0); Total Bilirubin 0.4 mg/dL (0.2-1.0); Total Protein 7.4 g/dL (6.4-8.9)
[2020-03-20 07:36] LABS: Urine Appearance Cloudy; Urine Bilirubin Negative (Negative); Urine Blood 2+ (Negative); Urine Color Yellow; Urine Glucose Negative (Negative); Urine Ketones Negative (Negative); Urine Nitrite Negative (Negative); Urine Protein Negative (Negative); Urine Specific Gravity 1.019 (1.010-1.030); Urine Urobilinogen Negative (Negative)
[2020-03-20] MEDS ORDERED: Iodixanol* (CONTRAST) 320 MG/ML 100 ML SDV IV ONE (07:37)
[2020-03-20 07:48] LABS: Urine Bacteria Absent (Absent); Urine Red Blood Cell 3+(>10/hpf) (Absent); Urine Squamous Epithelial Cell Present (Absent); Urine White Blood Cell Trace(0-5/hpf) (Absent)
[2020-03-20] MEDS ORDERED: Furosemide IV* 10 MG/ML VIAL (40 MG) IV ONE (08:13)
[2020-03-20] MEDS ORDERED: Artificial Tears* 15 ML BTL BOTH EYES PRN (11:29)
[2020-03-20] MEDS ORDERED: Nystatin TOP POWDER* 15 GM BTL TOPICAL PRN (11:29)
[2020-03-20] MEDS ORDERED: Al Hydrox/Mg Hydrox/Simet LIQ* 30 ML UDC PO PRN (11:59)
[2020-03-20] MEDS ORDERED: Dextrose 50% Syringe 50 ML* 25 GM/50 ML SYRINGE IV PUSH PRN (12:26)
[2020-03-20] MEDS ORDERED: Metoprolol Tartrate TAB* 25 MG PO ONE (12:46)
--- NOTE | 2020-03-20 15:11 | HP ---
CC: Dr. Cherise Donovan; Dr. Stein* HISTORY AND PHYSICAL: DATE OF ADMISSION: 03/20/20 PRIMARY CARE PROVIDER: Dr. Cherise Donovan. NICU RN: Dr. Stein from Cardiology in [place]. CHIEF COMPLAINT: Chest pain. HISTORY OF PRESENT ILLNESS: Lillie Melton is a 74-year-old female with history of oxygen dependent COPD at 2 L, who has a history of congestive heart failure and uses chronic diuretics, as well as giant cell arteritis for which the chronic prednisone that she was on at 1 mg daily was just recently discontinued in December 2019. The patient presents today complaining of chest pain that started yesterday after she woke up from a nap. The patient stated that she woke up from a nap in the early afternoon yesterday and she felt her breathing was somewhat harder and she noted that left-sided chest pain. The chest pain is localized in left mid chest, more so in the left anterior axillary line. It was worse when taking a deep breath. She stated that the pain was present off and on when she was taking a deep breath, but progressed to the point that it started bothering her very much at night and was "catching." At this point, she was concerned only about the chest pain and her breathing problems resolved. She came into the ED for evaluation. Her CT angiogram of the chest showed no evidence of PE, although the patient has a history of PE in the past. Her EKG showed atrial fibrillation, which is chronic and her troponins were negative. Due to the patient's high HEART Score, as per ED provider it was calculated above 4, the patient was recommended to be placed on overnight observation for a stress test in the morning. The patient also received 40 mg of Lasix IV in the emergency department with a working diagnosis of CHF. PAST MEDICAL HISTORY: 1. Diabetes type 2, on insulin. 2. Obesity. 3. History of diastolic CHF with unknown EF. 4. Giant cell arteritis, currently off prednisone for the past month and a half. 5. DVT and PE, status post IVC filter placement. 6. Chronic atrial fibrillation, on flecainide. 7. Chronic kidney disease, stage III. 8. COPD, oxygen dependent on 3L. 9. History of hemorrhagic shock secondary to bleeding associated with "blood thinners." 10. Hyperlipidemia. 11. History of TIA. 12. Obesity-hypoventilation syndrome. 13. Charcot foot on the right. The patient wears orthotic device and ambulates by herself but with difficulties due to the deformity. 14. The patient is blind in the left eye. PAST SURGICAL HISTORY: Includes: 1. Hernia repair with mesh. 2. Appendectomy. 3. Cholecystectomy. 4. Right ankle fracture ORIF. 5. Right knee replacement. MEDICATIONS: Home medication list includes: 1. Insulin glargine 15 units at night. 2. Lopressor 25 mg b.i.d. 3. Furosemide 80 mg daily. 4. Flecainide 50 mg every 12 hours. 5. Spironolactone 25 mg daily. 6. Eliquis 5 mg b.i.d. 7. Pravachol 40 mg q.p.m. 8. Mag-Ox 400 mg b.i.d. 9. Aspirin 81 mg daily. 10. Fiber supplement 0.4 g daily. 11. Multivitamin 1 tablet daily. 12. Folic acid 1 mg daily. 13. Nystatin cream on a p.r.n. basis. 14. Loratadine 10 mg at bedtime. 15. Xalatan eyedrops 1 drop both eyes at bedtime. 16. Acetaminophen on a p.r.n. basis. 17. Vitamin D3 1000 units daily. 18. Insulin lispro sliding scale. 19. Potassium chloride 40 mEq b.i.d. 20. Omeprazole 20 mg daily. 21. Nystatin powder on p.r.n. basis. 22. Colace 100 mg b.i.d. ALLERGIES: EGG, ARGATROBAN, BACITRACIN, ENOXAPARIN, HEPARIN, BETADINE SOAP, "BLOOD THINNERS." FAMILY HISTORY: Mother with a history of CVA. Father with a history of [place]. Grandmother with history of [place]. The patient's mother also had diabetes and aunt had breast cancer. SOCIAL HISTORY: The patient has a history of smoking approximately 5-pack- years and she quit in . She denies any alcohol or drug use. The surrogate decision maker is her son, Adrian Melton, whose phone number is [phone]. REVIEW OF SYSTEMS: Please see history of present illness. Please note that her right leg is always swollen due to Charcot's deformity. She wears a foot orthosis on this leg. Her breathing today is at baseline. She uses oxygen at 2L around the clock. She also has obstructive sleep apnea and uses CPAP at night. The patient stated that she was seen by Dr. Stein's nurse practitioner within the past 3 months, but she did not have an echocardiogram or stress test performed recently. Her exercise tolerance is limited due to her dyspnea and COPD, on oxygen dependency, but also due to that that she cannot ambulate well due to her right Charcot's foot. Nevertheless, she did not notice any change in exercise tolerance. Her chest pain is still present, is localized in the left mid chest. The patient notices point tenderness on evaluation. Please note all the remaining 12 systems were reviewed with the patient and were otherwise negative. PHYSICAL EXAMINATION GENERAL: The patient is a very pleasant 74-year-old female, who is in no acute distress. The patient is alert and oriented x3. VITAL SIGNS: Blood pressure 111/77, heart rate of 102 and irregularly irregular , respiratory rate 18, oxygen saturation 95% on 2 L of oxygen via nasal cannula , temperature 97.1. HEENT: Head: Atraumatic and normocephalic. Eyes: Pupils are equal and reactive to light and accommodation. Oropharynx clear. Mucosa moist. NECK: Supple. No JVD. No bruits bilaterally. RESPIRATORY: Clear to auscultation bilaterally. CARDIOVASCULAR: Irregularly irregular rhythm. No murmur. ABDOMEN: Soft and nontender. Bowel sounds present in all 4 quadrants. EXTREMITIES: There is right ankle edema, +1 pitting. The left ankle is not edematous. Peripheral pedal pulses are +2 bilaterally. There is no clubbing, no cyanosis. SKIN: On evaluation of the skin, the patient has chronic venous stasis changes in the distal left lower extremity with a small area that is healing wound covered with a tiny eschar of a couple of millimeters. The patient stated that she sustained it from a "dog" several weeks ago. DIAGNOSTIC STUDIES/LAB DATA: Sodium of 141, potassium 4.5, chloride 97, carbon dioxide 37, BUN 35, creatinine 1.3. Liver function tests unremarkable. Troponin of 0. CBC: White blood cell count of 10.3, hemoglobin of 12.7, hematocrit of 37, and platelets of 315. CT angiogram of the chest, impression: "No pulmonary embolism identified." Webbing within the left lower lobe pulmonary artery is similar in 2015. Could be stigmata of prior embolus or congenital. Imaging findings suggestive of pulmonary hypertension with mild pulmonary edema likely. Cardiomegaly with coronary artery calcifications. Mitral valve annulus was calcified. Osteopenia with severe age indeterminate compression fractures as above. There was moderate bony retropulsion at T10. The patient's EKG showed atrial fib/flutter with a heart rate of 102 beats per minute, nonspecific ST changes in leads V4 and V6. Comparing with prior EKG from 2018, at that point the patient was in sinus tachycardia with PACs. ASSESSMENT AND PLAN: 1. Chest pain. The patient has point tenderness significant on evaluation and on palpation of the mid chest in the left anterior axillary line. At this point , it could be due to costochondritis or musculoskeletal reasons. I do not believe that chest pain is cardiac related. Nevertheless, the patient has had dyspnea since yesterday that somewhat resolved, that is new. She did receive 40 mg of IV Lasix and right now appears pretty euvolemic. At this point, due to the patient's high HEART Score and coronary calcification noted on the CTA, and since that she had dyspnea yesterday, cardiac stress test is going to be obtained in the morning. 2. In regards to the patient's congestive heart failure, the patient is going to be restarted on her daily Lasix. I continued daily weights and Is and Os. 3. For diabetes, the patient is going to be on 30 units of insulin, but I will lower the dose, as the patient is going to be n.p.o. in the morning, of Lantus to 5 units daily and we will add on insulin sliding scale. 4. The patient's chronic kidney disease, stage III, is at baseline. 5. The patient's chronic obstructive pulmonary disease, is oxygen dependent, at 2L and is chronic and does not appear to be in exacerbation. 6. For DVT prophylaxis, the patient is chronically on Eliquis, which is going to be continued. 7. For the patient's atrial fibrillation, it is rate controlled. We will continue flecainide and metoprolol. We will also obtain a transthoracic echocardiogram and try to obtain medical records from Dr. Stein's office. 8. The patient's code status is full. Her surrogate is her son as mentioned above. TIME SPENT: Approximately 72 minutes was spent on admission of this patient, more than half that time was spent [id number] with the patient during the interview and physical exam. [id number]/[facility] #: [id number] JOSE ANGEL
[2020-03-20] MEDS: Insulin LISPRO* 1 UNITS UNIT SUBCUT SCH ×4 (15:12→19:32)
[2020-03-20] MEDS: Apixaban* 5 MG TAB PO SCH ×2 (15:13→20:09)
[2020-03-20] MEDS: Docusate CAP* 100 MG PO SCH ×2 (15:13→20:08)
--- NOTE | 2020-03-20 15:31 | ECHO ---
*[facility]* [place] [address] Fax #: [phone] Transthoracic Echocardiogram Patient: Lillie Melton : 1945 Study Date: 03/20/2020 Age: 74 Gender: F HR: 105 bpm Height: 65 in /165.1 cm BSA: 1.95 m^2 Weight: 193.6 lb /88 kg BMI: 32.3 kg/m^2 *Report Writer: Silvia Montgomery *Referring Physician: * Myah Thomason *Reading Physician: Angelica Silva MD Indications: Chest Pain, unspecified. History: COPD. Atrial fibrillation. Coronary artery disease. Congestive heart failure. Risk factors: Former tobacco use. Hypertension. Conclusions Summary: - Left ventricle: Systolic function is normal. The estimated ejection fraction is 55-60%. - Left atrium: The atrium is severely dilated. - Mitral valve: There is mild regurgitation. - Aortic valve: Thickening, consistent with sclerosis. There is trace regurgitation. - Tricuspid valve: There is mild regurgitation. - Pulmonary arteries: Systolic pressure is mildly increased, estimated to be 38 mm Hg. - No previous echocardiogram available. Study data: Transthoracic echocardiogram. Procedure: Transthoracic echocardiography was performed. Image quality was good. Complete 2D, spectral Doppler, and color flow Doppler. Location: Emergency department. Patient status: Inpatient. Patient room number: 12. Rhythm: Atrial fibrillation. Findings Left ventricle: The cavity size is normal. Wall thickness is moderately increased. Systolic function is normal. The estimated ejection fraction is 55-60%. Wall motion is normal; there are no regional wall motion abnormalities. Left ventricular diastolic function parameters are indeterminate. Right ventricle: The cavity size is normal. Systolic function is normal. Left atrium: The atrium is severely dilated. Right atrium: The atrium is dilated. Atrial septum: No defect or patent foramen ovale is identified. Mitral valve: The leaflets are mildly thickened. There is no evidence of stenosis. There is mild regurgitation. Aortic valve: The valve is trileaflet. The leaflets are mildly calcified. Thickening, consistent with sclerosis. There is no evidence of stenosis. There is trace regurgitation. Tricuspid valve: The valve is structurally normal. There is no evidence of stenosis. There is mild regurgitation. Pulmonic valve: The valve is structurally normal. There is no evidence of stenosis. There is trace regurgitation. Aorta: Aortic root: The aortic root is upper normal in size. Ascending aorta: The ascending aorta is upper normal in size. The aortic root appears normal. The aortic arch appears normal. Pericardium: There is no significant pericardial effusion. Pulmonary arteries: Systolic pressure is mildly increased, estimated to be 38 mm Hg. Systemic veins: Inferior vena cava: There is (>= 50%) respiratory change in the IVC dimension. Pulmonary veins: The Pulmonary veins appear normal. Measurements Left ventricle Value Ref Aortic valve continued Value Ref DAISHA, LAX 4.7 cm 3.8 - 5.2 VTI, S 23.4 cm ----- ESD, LAX 2.9 cm 2.2 - 3.5 Mean grad, S 4.0 mm Hg ----- FS, LAX 39 % 27 - 45 Peak grad, S 8.0 mm Hg ----- PW, ED, LAX (H) 1.4 cm 0.6 - 0.9 SAM, VTI 2.30 cm^2 ----- E', lat justin, TDI 15.2 cm/sec >=10.0 SAM, Vmax 2.03 cm^2 ----- E/e', lat justin, 8 TDI Mitral valve Value Ref Peak E 1.17 m/sec ----- LVOT Value Ref Peak A 0 m/sec ----- Diam, S 2.00 cm Decel time 169 ms ----- Area 3.1 cm^2 Peak grad, D 5.5 mm Hg ----- Peak jenny, S 0.91 m/sec Peak E/A ratio 390 ----- Mean grad, S 2 mm Hg SV 49 ml Pulmonic valve Value Ref Peak v, S 0.88 m/sec ----- Ventricular septum Value Ref Peak grad, S 3.0 mm Hg ----- IVS, ED (H) 1.5 cm 0.6 - 0.9 Tricuspid valve Value Ref Right ventricle Value Ref TR peak v (H) 2.87 m/sec <=2 .8 DAISHA, LAX 3.3 cm Peak RV-RA grad, S 33 mm Hg ----- DAISHA minor ax, 3.5 cm 1.9 - 3.5 Max TR jenny 2.83 m/sec ----- A4C mid Aortic root Value Ref Left atrium Value Ref Root diam 3.8 cm <4. 1 AP dim, ES (H) 4.30 cm 2.70 - 3.80 Ascending aorta Value Ref ML dim, A4C 6.7 cm AAo AP diam, S 3.7 cm ----- SI dim, A4C 7.5 cm Vol/bsa, ES, 1-p (H) 54 ml/m^2 11 - 40 Aortic arch Value Ref A4C Arch diam 3.9 cm ----- Right atrium Value Ref Inferior vena cava Value Ref SI dim, ES (H) 7.3 cm 3.4 - 5.3 Diam 2.0 cm ----- ML dim, ES, A4C 4.0 cm 2.6 - 4.4 SI dim, ES, A4C (H) 7.3 cm 3.4 - 5.3 Aortic valve Value Ref Peak v, S 1.4 m/sec Legend: (L) and (H) kervin values outside specified reference range. Prepared and electronically signed by Angelica Murphy MD 03/20/2020 15:30
[2020-03-20] MEDS: Flecainide* 50 MG TAB PO SCH (16:00)
[2020-03-20] MEDS: Acetaminophen TAB* 325 MG PO PRN ×2 (16:00→21:54)
[2020-03-20] MEDS: Potassium Chlor TAB* 20 MEQ TAB.ER PO SCH (20:08)
[2020-03-20] MEDS: Magnesium Oxide TAB* 400 MG PO SCH (20:09)
[2020-03-20] MEDS: Metoprolol Tartrate TAB* 25 MG PO SCH (20:09)
[2020-03-20] MEDS ORDERED: Insulin GLARGINE(*) 1 UNITS UNIT SUBCUT SCH (21:00)
[2020-03-20] MEDS ORDERED: Latanoprost 0.005%* 2.5 ml BTL BOTH EYES SCH (21:00)
[2020-03-21] MEDS: Flecainide* 50 MG TAB PO SCH ×2 (00:20→12:11)
[2020-03-21 06:36] LABS: ABS Basophils 0.1 10^3/ul (0-0.2); ABS Eosinophils 0.1 10^3/ul (0-0.6); ABS Lymphocytes 1.8 10^3/ul (1.0-4.8); ABS Neutrophils 6.1 10^3/ul (1.5-7.7); Eosinophil % 1.5 %; Hematocrit 35 % (35-47); Lymphocyte % 19.7 %; Mean Corpuscular HGB Conc 34 g/dL (31-36); Mean Corpuscular Hemoglobin 33 pg (27-31); Mean Corpuscular Volume 95 fL (80-97); Mean Platelet Volume 7.7 fL (7.4-10.4); Platelet Count 295 10^3/uL (150-450); Red Blood Count 3.67 10^6 /uL (3.70-4.87); Red Cell Distribution Width 14 % (10-15); White Blood Count 9.1 10^3/uL (3.5-10.8)
[2020-03-21 06:47] LABS: BUN/Creatinine Ratio 27.4 (8-20); Calcium 9.5 mg/dL (8.6-10.3); EGFR African American 46.5 (>60); EGFR Non-African American 38.4 (>60); Potassium 4.6 mmol/L (3.5-5.0)
[2020-03-21] MEDS: Insulin LISPRO* 1 UNITS UNIT SUBCUT SCH ×2 (07:29→11:23)
[2020-03-21 08:09] VITALS: BP 105/62
[2020-03-21] MEDS: Magnesium Oxide TAB* 400 MG PO SCH (08:46)
[2020-03-21] MEDS: Docusate CAP* 100 MG PO SCH (08:46)
[2020-03-21] MEDS: Potassium Chlor TAB* 20 MEQ TAB.ER PO SCH (08:47)
[2020-03-21] MEDS: Metoprolol Tartrate TAB* 25 MG PO SCH (08:47)
[2020-03-21] MEDS: Apixaban* 5 MG TAB PO SCH (08:47)
[2020-03-21] MEDS ORDERED: Spironolactone TAB* 25 MG PO SCH ×2 (09:00)
[2020-03-21] MEDS ORDERED: Multivitamins/Minerals TAB PO SCH (09:00)
[2020-03-21] MEDS ORDERED: Aspirin 81 mg CHEW TAB* 81 MG TAB.CHEW PO SCH (09:00)
[2020-03-21] MEDS ORDERED: Folic Acid TAB* 1 MG PO SCH (09:00)
[2020-03-21] MEDS ORDERED: Pantoprazole TAB * 40 MG TAB PO SCH (09:00)
[2020-03-21] MEDS ORDERED: Cholecalciferol TAB* 1000 UNITS PO SCH (09:00)
[2020-03-21] MEDS ORDERED: Furosemide TAB* 40 MG PO SCH (09:00)
[2020-03-21] MEDS ORDERED: Regadenoson* 0.4 MG/5 ML SYRINGE ONE (10:08)
[2020-03-21] MEDS ORDERED: Aminophylline IV* 25 MG/ML 10 ML VIAL ONE (10:08)
[2020-03-21 13:52] LABS: HDL Cholesterol 30.3 mg/dL
--- NOTE | 2020-03-21 14:58 | DS ---
CC: Dr. Cherise Donovan; Dr. Myah Thomason; Dr. Stein, Cardiology, [place]* DISCHARGE SUMMARY: DATE OF ADMISSION: 03/20/20 DATE OF DISCHARGE: 03/21/20 PRIMARY CARE PROVIDER: Dr. Cherise Donovan. ATTENDING PHYSICIAN: Dr. Myha Thomason* (dictated by DONNELL Sequeira). DIRECTOR DATA PROCESSING: Dr. Stein, Cardiology, [place]. PRIMARY DIAGNOSIS: Chest pain, acute coronary syndrome ruled out, likely musculoskeletal. SECONDARY DIAGNOSES: 1. Diabetes mellitus type 2, insulin-dependent. 2. Heart failure, preserved ejection fraction. 3. Chronic atrial fibrillation, on flecainide. 4. Chronic obstructive pulmonary disease, on 3 L O2. 5. Giant cell arteritis, currently off prednisone. 6. History of deep venous thrombosis, pulmonary embolism, status post IVC filter placement. 7. Chronic kidney disease, stage 3. 8. History of transient ischemic attack. 9. Hyperlipidemia. 10. History of hemorrhagic shock secondary to bleed. 11. Obesity. STUDIES WHILE IN THE HOSPITAL: 1. Chest x-ray, impression: Chest x-ray findings are most consistent with cardiogenic pulmonary edema with atelectasis and/or effusion at the left lung base. 2. CTA of the chest, impression: No pulmonary embolism identified. Webbing within the left lower lobar pulmonary artery is similar from 2015, could be stigmata of prior embolus or congenital. Imaging findings suggestive of pulmonary hypertension. Mild pulmonary edema is likely. Cardiomegaly with coronary artery calcifications. Mitral valve annulus is calcified. Osteopenia with several age indeterminate compression fractures as above. There is moderate bony retropulsion at T10. 3. Transthoracic echocardiogram, summary: LV systolic function normal. Estimated EF 55% to 60%. LA severely dilated. Mild MR. AV thickening consistent with sclerosis. Trace AR. Mild TR. Pulmonary artery systolic pressure mildly increased, estimated at 33 mmHg. 4. Nuc med myocardial stress test, impression: Small, mostly reversible photopenic defect along the lateral wall extending into the apex concerning for ischemia. May be overestimated by polar maps due to attenuation artifact. Assessment: Low risk. 5. EKG stress test: No definitive EKG changes of ischemia, although baseline nonspecific changes noted making EKG interpretation for ischemia less reliable. Baseline EKG shows AF, diffuse nonspecific ST-T wave changes. DISCHARGE MEDICATIONS: Home medications: 1. Acetaminophen 1000 mg p.o. q.6 hours p.r.n. 2. Apixaban 5 mg p.o. b.i.d. 3. Artificial tears 1 drop to both eyes q.2 hours p.r.n. 4. Aspirin 81 mg p.o. daily. 5. Cholecalciferol 1000 units p.o. daily. 6. Docusate 100 mg p.o. b.i.d. 7. Flecainide 50 mg p.o. q.12 hours. 8. Folic acid 1 mg p.o. daily. 9. Furosemide 80 mg p.o. daily. 10. SoloSTAR 15 units subcu at bedtime. 11. Insulin lispro sliding scale. 12. Latanoprost 1 drop to both eyes at bedtime. 13. Loratadine 10 mg p.o. at bedtime. 14. Magnesium oxide 400 mg p.o. b.i.d. 15. Metoprolol tartrate 25 mg p.o. b.i.d. 16. Multivitamin/minerals 1 tab p.o. daily. 17. Triple antibiotic topically b.i.d. 18. Nystatin 1 application topically b.i.d. 19. Nystatin topical powder 1 application topically b.i.d. p.r.n. 20. Omeprazole 20 mg p.o. daily. 21. Potassium chloride 40 mEq p.o. b.i.d. 22. Pravastatin 40 mg p.o. at bedtime. 23. Psyllium husk 0.4 g p.o. daily. 24. Spironolactone 25 mg p.o. daily. HISTORY OF PRESENT ILLNESS/HOSPITAL COURSE: Ms. Melton is a 74-year-old female with past medical history of diabetes mellitus, insulin-dependent; heart failure , preserved ejection fraction; chronic atrial fibrillation, on flecainide and anticoagulation; hyperlipidemia; and history of DVT/PE, who presented to the ER with complaints of chest pain, which was described as pleuritic in nature. The patient received a CTA of the chest, which showed no evidence of pulmonary embolism. The patient was admitted for further cardiac workup. An echocardiogram was obtained and showed preserved ejection fraction of 55% to 60% , indeterminate LV diastolic function, no regional wall motion abnormalities. A nuclear medicine stress test was ordered. EKG portion showed no definitive changes of ischemia, although the patient does have baseline AFib, which complicated reading. Nuclear medicine portion was low risk, but did note a small, mostly reversible defect at the lateral wall concerning for ischemia. At the time of discharge, the patient's lipid panel is pending, but she is currently on statin medication. She should follow with her primary care provider for further management and dose adjustment if needed based on her lipid panel. At this time, the patient does continue to have chest pain. She reports that it comes and goes. It typically occurs with deep breathing. She has point tenderness at the lateral chest wall. She denies shortness of breath, although she does report some mild shortness of breath with episodes of chest pain. She denies headache, dizziness, lightheadedness, vision changes, palpitations, cough , fever, chills. She denies abdominal pain, nausea, vomiting, diarrhea, constipation. She was afebrile without leukocytosis during her stay. Ms. Melton is stable for discharge home. PHYSICAL EXAMINATION: Vital Signs: Temperature 98.1 oral, heart rate 98, respiratory rate 20, oxygen saturation 98% on 2 L, blood pressure 148/74. General: Ms. Melton is a well-developed, well-nourished, older white female, who appears somewhat older than her stated age. She is sitting up in bed. She is resting comfortably, breathing without difficulty on her home dose of oxygen. She appears to be in no acute distress. HEENT: PERRL. EOMI. The patient does note that she is blind in the left eye, although can see shadows. Sclerae are nonicteric without injection. Hearing is grossly intact. Oral mucous membranes are moist. There are no lesions. The tongue is at midline. The posterior pharynx is clear without erythema or exudate. Palate elevates symmetrically. Cardiovascular: Irregularly irregular with S1, S2 present. There are no murmurs. No rubs, clicks, or gallops. There is no JVD. There is no peripheral edema. Left lateral chest wall is tender to palpation. Pulmonary : Symmetrical chest expansion. No use of accessory muscles. Lungs are clear to auscultation bilaterally without rhonchi, wheeze, or rales. Abdomen: Bowel sounds in all quadrants. The abdomen is soft and nontender to palpation. Neuro : The patient is awake. She is alert and oriented x3. Cranial nerves assessed and II through XII are grossly intact except a visual defect in the left eye. The patient is able to move all of her extremities. DISCHARGE PLAN: Ms. Melton will be discharged to home. CONDITION: Fair. DIET: Heart-healthy. ACTIVITY: As tolerated. MEDICATIONS: 1. No changes. 2. Continue Tylenol as prescribed at home p.r.n. chest pain. EDUCATION: 1. Follow up with primary care provider in 4 to 7 days, discuss recent hospitalization and lipid panel which is pending at the time of discharge. 2. Return to the ER or nearest hospital if you experience any worsening of symptoms, chest pain, shortness of breath, dizziness, lightheadedness, loss of consciousness, high fevers, chills, night sweats, or any other worrisome signs or symptoms. This is a summarized report of a complex medical history and hospital stay. For further details, please see the entire medical record. TIME SPENT: Approximately 35 minutes was spent on this discharge, greater than half that time was spent [id number] with the patient discussing discharge plans and instructions. DONNELL SÁNCHEZ [id number]/[facility] #: [id number] JOSE ANGEL
== END 2020-03-21 15:00 | disposition home or self-care (01) ==
LOC: ED 06:38 → MEDTELE 11:59
PROVIDERS: ADMIT Internal Medicine; ATTEND Internal Medicine
DX: R07.9 Chest pain, unspecified (principal); I13.0 Hypertensive heart and chronic kidney disease with heart failure and stage 1 through stage 4 chronic kidney disease, or unspecified chronic kidney disease; I50.30 Unspecified diastolic (congestive) heart failure; N18.3 Chronic kidney disease, stage 3 (moderate); E11.22 Type 2 diabetes mellitus with diabetic chronic kidney disease; Z79.4 Long term (current) use of insulin; E66.9 Obesity, unspecified; M31.6 Other giant cell arteritis; E78.5 Hyperlipidemia, unspecified; Z86.73 Personal history of transient ischemic attack (TIA), and cerebral infarction without residual deficits; J44.9 Chronic obstructive pulmonary disease, unspecified; Z99.81 Dependence on supplemental oxygen; Z79.82 Long term (current) use of aspirin; Z79.899 Other long term (current) drug therapy; Z79.01 Long term (current) use of anticoagulants; Z87.891 Personal history of nicotine dependence; R06.00 Dyspnea, unspecified; Z20.828 Contact with and (suspected) exposure to other viral communicable diseases
CPT/HCPCS: 36415; 71045; 71275; 78452; 80048; 80053; 80061; 81003; 81015; 82803; 83605; 83690; 83880; 84484; 85025; 85379; 86140; 87040; 87086; 87635; 93005; 93017; 93306; 94660; 96374; 99285; A9270-GY; A9502; G0378; J0280; J1940; J2785; Q9967; U0003

== ENCOUNTER 2021-07-10 11:52 | Inpatient (IN) ==
[2021-07-10 14:26] LABS: ABS Lymphocytes 1.2 10^3/ul (1.0-4.8); ABS Monocytes 1.5 10^3/ul (0-0.8); Eosinophil % 0.3 %; Hematocrit 38 % (35-47); Lymphocyte % 10.6 %; Mean Corpuscular HGB Conc 34 g/dL (31-36); Mean Corpuscular Hemoglobin 33 pg (27-31); Mean Corpuscular Volume 97 fL (80-97); Mean Platelet Volume 7.8 fL (7.4-10.4); Platelet Count 196 10^3/uL (150-450); Red Blood Count 3.93 10^6 /uL (3.70-4.87); Red Cell Distribution Width 14 % (10-15); White Blood Count 11.8 10^3/uL (3.5-10.8)
[2021-07-10 14:44] LABS: Albumin 3.9 g/dL (3.2-5.2); Albumin/Globulin Ratio 1.2 (1-3); Calcium 9.5 mg/dL (8.6-10.3); EGFR African American 53.1 (>60); EGFR Non-African American 43.9 (>60); Globulin 3.3 g/dL (2-4); Potassium 4.2 mmol/L (3.5-5.0); Total Bilirubin 0.9 mg/dL (0.2-1.0); Total Protein 7.2 g/dL (6.4-8.9)
[2021-07-10 14:46] LABS: Troponin I 0.01 ng/mL (<0.03)
[2021-07-10 17:05] LABS: C Reactive Protein 166.6 mg/L (<8.01)
[2021-07-10 18:40] LABS: Urine Appearance Clear; Urine Bilirubin Negative (Negative); Urine Blood 2+ (Negative); Urine Color Yellow; Urine Glucose Negative (Negative); Urine Ketones Negative (Negative); Urine Nitrite Negative (Negative); Urine Protein Negative (Negative); Urine Specific Gravity 1.012 (1.002-1.030); Urine Urobilinogen Negative (Negative)
[2021-07-10 18:45] LABS: Urine Bacteria 1+ (Absent); Urine Red Blood Cell 2+(6-10/hpf) (Absent); Urine Squamous Epithelial Cell Present (Absent); Urine White Blood Cell Trace(0-5/hpf) (Absent)
[2021-07-10] MEDS: Insulin GLARGINE 100 un/ml 10 ml VIAL SUBCUT SCH (22:17)
[2021-07-10 22:25] LABS: TSH Ultra Thyroid Stim Horm 1.04 mcIU/mL (0.34-5.60)
[2021-07-10] MEDS: Latanoprost 0.005% 2.5 ml BTL BOTH EYES SCH (22:54)
[2021-07-11] MEDS: Cholecalciferol (VIT D3) 1,000 unit TAB PO SCH (08:13)
[2021-07-11] MEDS: Multivitamins/Minerals TAB PO SCH (08:13)
[2021-07-11 08:32] LABS: ABS Eosinophils 0.2 10^3/ul (0-0.6); ABS Lymphocytes 1.3 10^3/ul (1.0-4.8); ABS Monocytes 1.3 10^3/ul (0-0.8); ABS Neutrophils 7.5 10^3/ul (1.5-7.7); Eosinophil % 1.5 %; Hematocrit 37 % (35-47); Hemoglobin 12.7 g/dL (12.0-16.0); Lymphocyte % 12.7 %; Mean Corpuscular HGB Conc 34 g/dL (31-36); Mean Corpuscular Hemoglobin 33 pg (27-31); Mean Corpuscular Volume 97 fL (80-97); Mean Platelet Volume 8.5 fL (7.4-10.4); Platelet Count 194 10^3/uL (150-450); Red Blood Count 3.79 10^6 /uL (3.70-4.87); Red Cell Distribution Width 14 % (10-15); White Blood Count 10.3 10^3/uL (3.5-10.8)
[2021-07-11 08:45] LABS: Calcium 9.3 mg/dL (8.6-10.3); Potassium 4.2 mmol/L (3.5-5.0)
[2021-07-11 08:50] LABS: EGFR African American 58.1 (>60)
[2021-07-11] MEDS: cefTRIAXone 1 gm/50 mL NS BAG 1 GM/50 ML BAG IVPB SCH (10:06)
[2021-07-11] MEDS ORDERED: Potassium Chlor 20 meq TAB.ER PO SCH (18:13)
[2021-07-11] MEDS: Latanoprost 0.005% 2.5 ml BTL BOTH EYES SCH (19:55)
[2021-07-11] MEDS: Insulin GLARGINE 100 un/ml 10 ml VIAL SUBCUT SCH (19:57)
[2021-07-12] MEDS ORDERED: Digoxin IV 0.5 MG/2 ML AMP (0.25 MG/ML) IV SLOW PU ONE (01:39)
[2021-07-12] MEDS ORDERED: Digoxin IV 0.5 MG/2 ML AMP (0.25 MG/ML) IV SLOW PU SCH (06:00)
[2021-07-12] MEDS: Cholecalciferol (VIT D3) 1,000 unit TAB PO SCH (08:41)
[2021-07-12] MEDS: Multivitamins/Minerals TAB PO SCH (08:41)
[2021-07-12] MEDS: cefTRIAXone 1 gm/50 mL NS BAG 1 GM/50 ML BAG IVPB SCH (08:41)
[2021-07-12] MEDS: Potassium Chlor 20 meq TAB.ER PO SCH (18:42)
[2021-07-12] MEDS: Latanoprost 0.005% 2.5 ml BTL BOTH EYES SCH (20:26)
[2021-07-12] MEDS: Insulin GLARGINE 100 un/ml 10 ml VIAL SUBCUT SCH (20:26)
[2021-07-13] MEDS ORDERED: Metoprolol Tartrate 5 mg VIAL 5 ml VIAL (1 mg/ml) IV ONE ×2 (00:56→04:55)
[2021-07-13] MEDS ORDERED: Metoprolol Tartrate 5 mg VIAL 5 ml VIAL (1 mg/ml) ONE (00:57)
[2021-07-13 01:43] LABS: Calcium 9.2 mg/dL (8.6-10.3); Magnesium 1.9 mg/dL (1.9-2.7); Potassium 4.8 mmol/L (3.5-5.0)
[2021-07-13 01:49] LABS: EGFR African American 58.1 (>60)
[2021-07-13 08:45] LABS: Hematocrit 36 % (35-47); Hemoglobin 12.2 g/dL (12.0-16.0); Mean Corpuscular HGB Conc 34 g/dL (31-36); Mean Corpuscular Hemoglobin 33 pg (27-31); Mean Corpuscular Volume 96 fL (80-97); Mean Platelet Volume 8.4 fL (7.4-10.4); Platelet Count 229 10^3/uL (150-450); Red Blood Count 3.71 10^6 /uL (3.70-4.87); Red Cell Distribution Width 14 % (10-15)
[2021-07-13 08:53] LABS: ABS Lymphocytes 1.1 10^3/ul (1.0-4.8); ABS Monocytes 1.6 10^3/ul (0-0.8); ABS Neutrophils 9.3 10^3/ul (1.5-7.7); Eosinophil % 0.3 %; Lymphocyte % 9.1 %
[2021-07-13] MEDS: Potassium Chlor 20 meq TAB.ER PO SCH ×2 (08:55→16:03)
[2021-07-13] MEDS: Cholecalciferol (VIT D3) 1,000 unit TAB PO SCH (08:55)
[2021-07-13] MEDS: Multivitamins/Minerals TAB PO SCH (08:55)
[2021-07-13] MEDS: cefTRIAXone 1 gm/50 mL NS BAG 1 GM/50 ML BAG IVPB SCH (08:56)
[2021-07-13 09:18] LABS: C Reactive Protein 173.48 mg/L (<8.01); Calcium 9.1 mg/dL (8.6-10.3); EGFR African American 64.1 (>60); Magnesium 1.9 mg/dL (1.9-2.7); Potassium 4.8 mmol/L (3.5-5.0)
[2021-07-13] MEDS ORDERED: Vancomycin per Pharmacy 1 EA NOTE FOLLOW UP SCH (18:00)
[2021-07-13] MEDS ORDERED: Vancomycin 1,250 MG in NS 0.9% 250 ml 250 ML IVPB ONE (18:00)
[2021-07-13] MEDS: Latanoprost 0.005% 2.5 ml BTL BOTH EYES SCH (20:24)
[2021-07-13] MEDS: Insulin GLARGINE 100 un/ml 10 ml VIAL SUBCUT SCH (20:25)
[2021-07-14 06:30] LABS: Hematocrit 34 % (35-47); Hemoglobin 11.5 g/dL (12.0-16.0); Mean Corpuscular HGB Conc 34 g/dL (31-36); Mean Corpuscular Hemoglobin 33 pg (27-31); Mean Corpuscular Volume 97 fL (80-97); Mean Platelet Volume 8.4 fL (7.4-10.4); Platelet Count 240 10^3/uL (150-450); Red Blood Count 3.51 10^6 /uL (3.70-4.87); Red Cell Distribution Width 14 % (10-15)
[2021-07-14 06:39] LABS: ABS Lymphocytes 1.2 10^3/ul (1.0-4.8); ABS Monocytes 2.1 10^3/ul (0-0.8); ABS Neutrophils 12.6 10^3/ul (1.5-7.7); Eosinophil % 0.3 %; Lymphocyte % 7.7 %
[2021-07-14] MEDS ORDERED: Vancomycin 1,250 MG in NS 0.9% 250 ml 250 ML IVPB SCH (07:30)
[2021-07-14] MEDS: Multivitamins/Minerals TAB PO SCH (07:44)
[2021-07-14] MEDS: Cholecalciferol (VIT D3) 1,000 unit TAB PO SCH (07:47)
[2021-07-14] MEDS ORDERED: Midazolam 5 mg/5 ml VIAL 1 mg/ml 5 ml VIAL (5 mg) ONE (09:58)
[2021-07-14] MEDS ORDERED: fentaNYL 100 mcg/2 ml 50 MCG/ML VIAL ONE (09:58)
[2021-07-14] MEDS ORDERED: Naloxone 0.4 mg VIAL 0.4 mg/ml 1 ml VIAL ONE (09:58)
[2021-07-14] MEDS ORDERED: Flumazenil 0.5 mg/5 ml 0.1 MG/ML 5 ml VIAL ONE (09:58)
[2021-07-14] MEDS ORDERED: NS 0.9% 500 ml BAG 500 ML IV ONE (10:47)
[2021-07-14] MEDS ORDERED: Piperacillin/Tazobac ADVAN 3.375 GM in NS 0.9% 100 ml BAG 100 ML IV ONE (10:55)
[2021-07-14] MEDS ORDERED: Zosyn per Pharmacy NOTE FOLLOW UP SCH (11:00)
[2021-07-14] MEDS: cefTRIAXone 1 gm/50 mL NS BAG 1 GM/50 ML BAG IVPB SCH (11:42)
[2021-07-14] MEDS ORDERED: Magnesium Hydroxide LIQ 30 ML UDC PO PRN (14:15)
[2021-07-14] MEDS: ZOSYN 3.375 GM Q8H per EXTENDED INFUSION IV SCH ×2 (15:20→23:54)
[2021-07-14] MEDS: Potassium Chlor 20 meq TAB.ER PO SCH (17:53)
[2021-07-14] MEDS: Insulin GLARGINE 100 un/ml 10 ml VIAL SUBCUT SCH (20:45)
[2021-07-14] MEDS: Latanoprost 0.005% 2.5 ml BTL BOTH EYES SCH (20:49)
[2021-07-15 05:36] LABS: Hematocrit 32 % (35-47); Hemoglobin 10.9 g/dL (12.0-16.0); Mean Corpuscular HGB Conc 34 g/dL (31-36); Mean Corpuscular Hemoglobin 33 pg (27-31); Mean Corpuscular Volume 97 fL (80-97); Mean Platelet Volume 8.4 fL (7.4-10.4); Platelet Count 244 10^3/uL (150-450); Red Blood Count 3.29 10^6 /uL (3.70-4.87); Red Cell Distribution Width 14 % (10-15); White Blood Count 16.7 10^3/uL (3.5-10.8)
[2021-07-15 05:49] LABS: ABS Monocytes 2.2 10^3/ul (0-0.8); ABS Neutrophils 13.5 10^3/ul (1.5-7.7)
[2021-07-15 05:52] LABS: EGFR Non-African American 47.1 (>60)
[2021-07-15] MEDS ORDERED: Vancomycin Trough Check NOTE FOLLOW UP ONE (07:00)
[2021-07-15] MEDS: ZOSYN 3.375 GM Q8H per EXTENDED INFUSION IV SCH ×2 (07:35→21:41)
[2021-07-15] MEDS: Multivitamins/Minerals TAB PO SCH (07:44)
[2021-07-15] MEDS: Potassium Chlor 20 meq TAB.ER PO SCH ×2 (07:44→12:31)
[2021-07-15] MEDS: Cholecalciferol (VIT D3) 1,000 unit TAB PO SCH (07:45)
[2021-07-15] MEDS ORDERED: Digoxin IV 0.5 MG/2 ML AMP (0.25 MG/ML) IV SLOW PU ONE (16:29)
[2021-07-15] MEDS: Insulin GLARGINE 100 un/ml 10 ml VIAL SUBCUT SCH (20:19)
[2021-07-15] MEDS: Latanoprost 0.005% 2.5 ml BTL BOTH EYES SCH (20:23)
[2021-07-16] MEDS: ZOSYN 3.375 GM Q8H per EXTENDED INFUSION IV SCH ×3 (02:06→16:21)
[2021-07-16 05:16] LABS: Hematocrit 33 % (35-47); Hemoglobin 10.6 g/dL (12.0-16.0); Mean Corpuscular HGB Conc 33 g/dL (31-36); Mean Corpuscular Hemoglobin 32 pg (27-31); Mean Corpuscular Volume 99 fL (80-97); Mean Platelet Volume 8.3 fL (7.4-10.4); Platelet Count 252 10^3/uL (150-450); Red Cell Distribution Width 14 % (10-15); White Blood Count 16.5 10^3/uL (3.5-10.8)
[2021-07-16 05:41] LABS: ABS Eosinophils 0.1 10^3/ul (0-0.6); ABS Lymphocytes 1.6 10^3/ul (1.0-4.8); ABS Monocytes 2.5 10^3/ul (0-0.8); ABS Neutrophils 12.3 10^3/ul (1.5-7.7); Eosinophil % 0.3 %; Lymphocyte % 9.6 %
[2021-07-16 07:33] LABS: Calcium 8.2 mg/dL (8.6-10.3); Potassium 4.6 mmol/L (3.5-5.0)
[2021-07-16 07:38] LABS: C Reactive Protein 341.08 mg/L (<8.01); EGFR African American 50.7 (>60); EGFR Non-African American 41.9 (>60)
[2021-07-16] MEDS: Multivitamins/Minerals TAB PO SCH (07:46)
[2021-07-16] MEDS: Cholecalciferol (VIT D3) 1,000 unit TAB PO SCH (07:46)
[2021-07-16] MEDS ORDERED: fentaNYL 100 mcg/2 ml 50 MCG/ML VIAL ONE (13:26)
[2021-07-16] MEDS ORDERED: Naloxone 0.4 mg VIAL 0.4 mg/ml 1 ml VIAL ONE (13:26)
[2021-07-16] MEDS ORDERED: Midazolam 5 mg/5 ml VIAL 1 mg/ml 5 ml VIAL (5 mg) ONE (13:26)
[2021-07-16] MEDS ORDERED: Flumazenil 0.5 mg/5 ml 0.1 MG/ML 5 ml VIAL ONE (13:26)
[2021-07-16 16:29] LABS: Body Fluid Source Synovial Fluid
[2021-07-16] MEDS: Potassium Chlor 20 meq TAB.ER PO SCH (17:55)
[2021-07-16 18:01] LABS: Body Fluid WBC 13817 /mcL
[2021-07-16 19:26] LABS: Body Fluid Appearance Cloudy; Body Fluid Color Yellow; Body Fluid Mono 1 %; Body Fluid Total Cells Counted 200
[2021-07-16] MEDS: Insulin GLARGINE 100 un/ml 10 ml VIAL SUBCUT SCH (20:11)
[2021-07-16] MEDS: Latanoprost 0.005% 2.5 ml BTL BOTH EYES SCH (20:12)
[2021-07-17] MEDS: ZOSYN 3.375 GM Q8H per EXTENDED INFUSION IV SCH ×3 (00:45→16:41)
[2021-07-17] MEDS: Cholecalciferol (VIT D3) 1,000 unit TAB PO SCH (07:19)
[2021-07-17] MEDS: Multivitamins/Minerals TAB PO SCH (07:21)
[2021-07-17] MEDS: Potassium Chlor 20 meq TAB.ER PO SCH ×2 (07:21→10:58)
[2021-07-17] MEDS ORDERED: NS 0.9% 1000 ml BAG 1,000 ML IV SCH (16:15)
[2021-07-17] MEDS: Insulin GLARGINE 100 un/ml 10 ml VIAL SUBCUT SCH (20:44)
[2021-07-17] MEDS: Latanoprost 0.005% 2.5 ml BTL BOTH EYES SCH (20:49)
[2021-07-18] MEDS: NS 0.9% 1000 ml BAG 1,000 ML IV SCH (00:18)
[2021-07-18] MEDS: ZOSYN 3.375 GM Q8H per EXTENDED INFUSION IV SCH ×3 (00:18→15:54)
[2021-07-18 07:01] LABS: ABS Lymphocytes 0.8 10^3/ul (1.0-4.8); ABS Monocytes 1.2 10^3/ul (0-0.8); ABS Neutrophils 10.3 10^3/ul (1.5-7.7); Eosinophil % 0.1 %; Hematocrit 32 % (35-47); Lymphocyte % 6.6 %; Mean Corpuscular HGB Conc 34 g/dL (31-36); Mean Corpuscular Hemoglobin 33 pg (27-31); Mean Corpuscular Volume 96 fL (80-97); Mean Platelet Volume 8.2 fL (7.4-10.4); Platelet Count 333 10^3/uL (150-450); Red Blood Count 3.32 10^6 /uL (3.70-4.87); Red Cell Distribution Width 14 % (10-15); White Blood Count 12.3 10^3/uL (3.5-10.8)
[2021-07-18] MEDS: Multivitamins/Minerals TAB PO SCH (09:20)
[2021-07-18] MEDS: Cholecalciferol (VIT D3) 1,000 unit TAB PO SCH (09:20)
[2021-07-18] MEDS: Potassium Chlor 20 meq TAB.ER PO SCH (17:50)
[2021-07-18] MEDS: Latanoprost 0.005% 2.5 ml BTL BOTH EYES SCH (20:42)
[2021-07-18] MEDS: Insulin GLARGINE 100 un/ml 10 ml VIAL SUBCUT SCH (20:42)
[2021-07-18] MEDS ORDERED: guaiFENesin/CODIENE 100mg/10mg 5 ML UDC PO PRN (21:05)
[2021-07-19] MEDS: ZOSYN 3.375 GM Q8H per EXTENDED INFUSION IV SCH ×4 (00:06→23:17)
[2021-07-19] MEDS: NS 0.9% 1000 ml BAG 1,000 ML IV SCH (00:06)
[2021-07-19 07:30] LABS: Hematocrit 33 % (35-47); Hemoglobin 11.1 g/dL (12.0-16.0); Mean Corpuscular HGB Conc 34 g/dL (31-36); Mean Corpuscular Hemoglobin 33 pg (27-31); Mean Corpuscular Volume 97 fL (80-97); Mean Platelet Volume 7.9 fL (7.4-10.4); Platelet Count 371 10^3/uL (150-450); Red Blood Count 3.34 10^6 /uL (3.70-4.87); Red Cell Distribution Width 14 % (10-15); White Blood Count 9.6 10^3/uL (3.5-10.8)
[2021-07-19 07:44] LABS: EGFR African American 67.1 (>60); EGFR Non-African American 55.5 (>60); Potassium 3.9 mmol/L (3.5-5.0)
[2021-07-19 08:16] LABS: ABS Basophils 0.1 10^3/ul (0-0.2); ABS Eosinophils 0.2 10^3/ul (0-0.6); ABS Lymphocytes 1.4 10^3/ul (1.0-4.8); ABS Monocytes 1.8 10^3/ul (0-0.8); ABS Neutrophils 6.1 10^3/ul (1.5-7.7); Lymphocyte % 14.3 %
[2021-07-19] MEDS: Cholecalciferol (VIT D3) 1,000 unit TAB PO SCH (08:40)
[2021-07-19] MEDS: Multivitamins/Minerals TAB PO SCH (08:42)
[2021-07-19 15:06] LABS: B. garinii/B. afzellii PCR Negative (Negative); Lyme Disease Source SYNOVIAL FLUID
[2021-07-19] MEDS: Potassium Chlor 20 meq TAB.ER PO SCH (17:18)
[2021-07-19] MEDS: Latanoprost 0.005% 2.5 ml BTL BOTH EYES SCH (20:33)
[2021-07-19] MEDS: Insulin GLARGINE 100 un/ml 10 ml VIAL SUBCUT SCH (20:33)
[2021-07-20 07:37] LABS: INR 1.42 (0.86-1.15)
[2021-07-20 07:46] LABS: ABS Eosinophils 0.2 10^3/ul (0-0.6); ABS Lymphocytes 1.8 10^3/ul (1.0-4.8); ABS Monocytes 1.8 10^3/ul (0-0.8); ABS Neutrophils 8.7 10^3/ul (1.5-7.7); Eosinophil % 1.8 %; Hematocrit 32 % (35-47); Hemoglobin 10.7 g/dL (12.0-16.0); Lymphocyte % 14.1 %; Mean Corpuscular HGB Conc 34 g/dL (31-36); Mean Corpuscular Hemoglobin 33 pg (27-31); Mean Corpuscular Volume 97 fL (80-97); Mean Platelet Volume 7.7 fL (7.4-10.4); Platelet Count 407 10^3/uL (150-450); Red Blood Count 3.29 10^6 /uL (3.70-4.87); Red Cell Distribution Width 14 % (10-15); White Blood Count 12.5 10^3/uL (3.5-10.8)
[2021-07-20 07:47] LABS: Calcium 8.6 mg/dL (8.6-10.3); EGFR African American 58.7 (>60); EGFR Non-African American 48.6 (>60); Potassium 3.9 mmol/L (3.5-5.0)
[2021-07-20 08:22] LABS: RBC Morphology Normal (Normal)
[2021-07-20] MEDS: ZOSYN 3.375 GM Q8H per EXTENDED INFUSION IV SCH ×2 (08:25→22:22)
[2021-07-20 12:11] LABS: INR 1.52 (0.86-1.15)
[2021-07-20] MEDS: Cholecalciferol (VIT D3) 1,000 unit TAB PO SCH (14:25)
[2021-07-20] MEDS: Potassium Chlor 20 meq TAB.ER PO SCH (14:25)
[2021-07-20] MEDS: Multivitamins/Minerals TAB PO SCH (14:26)
[2021-07-20] MEDS ORDERED: Buffered Lidocaine 1% SYRIN 1 ml INTRADERM ONE (15:25)
[2021-07-20] MEDS ORDERED: Bupivacaine 0.25% SDV 30 ML ONE (15:29)
[2021-07-20] MEDS ORDERED: Lidocaine 1% w EPI 1:100,000 MDV 20 ML VIAL ONE (15:29)
[2021-07-20] MEDS ORDERED: Tranexamic Acid 1,000 MG/10 ML SDV ONE (15:29)
[2021-07-20] MEDS ORDERED: Polyethylene Glycol 3350 17 GM PACKET PO PRN (15:56)
[2021-07-20] MEDS ORDERED: Magnesium Hydroxide LIQ 30 ML UDC PO PRN (15:56)
[2021-07-20] MEDS ORDERED: Lactated Ringers 1000 ml BAG 1,000 ML IV SCH (16:00)
[2021-07-20] MEDS ORDERED: Propofol 10 MG/ML 20 ML BTL ONE (16:46)
[2021-07-20] MEDS ORDERED: fentaNYL 250 mcg/5 ml 50 MCG/ML 5 ml VIAL (250 MCG) ONE (16:46)
[2021-07-20] MEDS ORDERED: Lidocaine 2% PF 5 ML VIAL ONE (16:46)
[2021-07-20] MEDS ORDERED: Phenylephrine 40 mcg/mL 10mL (400mcg) SYRINGE ONE (17:07)
[2021-07-20] MEDS ORDERED: Bupivacaine 0.5% 50 ML MDV VIAL ONE (18:24)
[2021-07-20] MEDS ORDERED: Metoprolol Tartrate 5 mg VIAL 5 ml VIAL (1 mg/ml) ONE ×2 (18:25→19:15)
[2021-07-20] MEDS ORDERED: Ondansetron 4 mg VIAL 2 MG/ML 2 ml VIAL ONE (19:47)
[2021-07-20] MEDS ORDERED: Prochlorperazine 5 mg/ml 2 ml VIAL (10 mg) ONE (20:31)
[2021-07-20] MEDS ORDERED: Prochlorperazine 5 mg/ml 2 ml VIAL (10 mg) IV PRN (20:33)
[2021-07-20] MEDS ORDERED: DiMENhydriNATE IV 50 mg/ml 1 ml VIAL IV PUSH PRN (20:33)
[2021-07-20] MEDS ORDERED: Naloxone 0.4 mg VIAL 0.4 mg/ml 1 ml VIAL IV PRN (20:33)
[2021-07-20] MEDS: Insulin GLARGINE 100 un/ml 10 ml VIAL SUBCUT SCH (22:37)
[2021-07-20] MEDS: Magnesium Hydroxide LIQ 30 ML UDC PO SCH (22:37)
[2021-07-20] MEDS: Latanoprost 0.005% 2.5 ml BTL BOTH EYES SCH (22:38)
[2021-07-20] MEDS ORDERED: Morphine 2 MG/ML SYRINGE IV PRN (23:34)
[2021-07-21] MEDS: ZOSYN 3.375 GM Q8H per EXTENDED INFUSION IV SCH ×2 (00:32→08:30)
[2021-07-21] MEDS: HYDROcodone/ACETAMIN 5/325 mg TAB PO PRN ×4 (00:32→21:52)
[2021-07-21 05:34] LABS: Hematocrit 31 % (35-47); Hemoglobin 10.6 g/dL (12.0-16.0); Mean Corpuscular HGB Conc 34 g/dL (31-36); Mean Corpuscular Hemoglobin 33 pg (27-31); Mean Corpuscular Volume 96 fL (80-97); Mean Platelet Volume 7.8 fL (7.4-10.4); Platelet Count 474 10^3/uL (150-450); Red Blood Count 3.24 10^6 /uL (3.70-4.87); Red Cell Distribution Width 14 % (10-15); White Blood Count 22.5 10^3/uL (3.5-10.8)
[2021-07-21 05:50] LABS: Calcium 8.8 mg/dL (8.6-10.3); EGFR African American 62.7 (>60); EGFR Non-African American 51.8 (>60); Magnesium 1.9 mg/dL (1.9-2.7); Potassium 4.8 mmol/L (3.5-5.0)
[2021-07-21 07:15] LABS: ABS Lymphocytes 1.4 10^3/ul (1.0-4.8); ABS Monocytes 2.4 10^3/ul (0-0.8); ABS Neutrophils 18.6 10^3/ul (1.5-7.7); Eosinophil % 0.1 %; Lymphocyte % 6.4 %
[2021-07-21] MEDS: Multivitamins/Minerals TAB PO SCH (08:34)
[2021-07-21] MEDS: Cholecalciferol (VIT D3) 1,000 unit TAB PO SCH (08:34)
[2021-07-21] MEDS: Magnesium Hydroxide LIQ 30 ML UDC PO SCH ×2 (08:36→21:55)
[2021-07-21] MEDS: SPIRIVA Respimat (tiotropium) 2.5 mcg/inh Inhaler INH SCH (12:09)
[2021-07-21] MEDS ORDERED: Vancomycin per Pharmacy 1 EA NOTE FOLLOW UP PRN (13:22)
[2021-07-21] MEDS: Vancomycin 1,500 MG in NS 0.9% 250 ml 250 ML IVPB SCH (15:09)
[2021-07-21] MEDS: Potassium Chlor 20 meq TAB.ER PO SCH (17:36)
[2021-07-21] MEDS: Insulin GLARGINE 100 un/ml 10 ml VIAL SUBCUT SCH (21:44)
[2021-07-21] MEDS: Latanoprost 0.005% 2.5 ml BTL BOTH EYES SCH (21:50)
[2021-07-22 05:05] LABS: Hematocrit 28 % (35-47); Hemoglobin 9.2 g/dL (12.0-16.0); Mean Corpuscular HGB Conc 33 g/dL (31-36); Mean Corpuscular Hemoglobin 32 pg (27-31); Mean Corpuscular Volume 98 fL (80-97); Mean Platelet Volume 7.7 fL (7.4-10.4); Platelet Count 430 10^3/uL (150-450); Red Blood Count 2.87 10^6 /uL (3.70-4.87); Red Cell Distribution Width 14 % (10-15); White Blood Count 19.5 10^3/uL (3.5-10.8)
[2021-07-22 05:23] LABS: Blood Urea Nitrogen 46 mg/dL (6-24); CO2 Carbon Dioxide 38 mmol/L (22-32); Calcium 8.3 mg/dL (8.6-10.3); Chloride 97 mmol/L (101-111); EGFR African American 50.7 (>60); EGFR Non-African American 41.9 (>60); Glucose 131 mg/dL (70-100); Sodium 135 mmol/L (135-145)
[2021-07-22 05:31] LABS: Potassium 5.3 mmol/L (3.5-5.0)
[2021-07-22 05:34] LABS: ABS Basophils 0.1 10^3/ul (0-0.2); ABS Eosinophils 0.3 10^3/ul (0-0.6); ABS Lymphocytes 2.1 10^3/ul (1.0-4.8); ABS Monocytes 2.2 10^3/ul (0-0.8); ABS Neutrophils 14.9 10^3/ul (1.5-7.7); Eosinophil % 1.4 %; Lymphocyte % 10.6 %
[2021-07-22] MEDS: SPIRIVA Respimat (tiotropium) 2.5 mcg/inh Inhaler INH SCH (07:40)
[2021-07-22] MEDS: Cholecalciferol (VIT D3) 1,000 unit TAB PO SCH (09:21)
[2021-07-22] MEDS: Multivitamins/Minerals TAB PO SCH (09:21)
[2021-07-22] MEDS: Magnesium Hydroxide LIQ 30 ML UDC PO SCH ×2 (09:22→23:09)
[2021-07-22] MEDS: Potassium Chlor 20 meq TAB.ER PO SCH ×2 (10:55→11:58)
[2021-07-22] MEDS: Vancomycin 1,500 MG in NS 0.9% 250 ml 250 ML IVPB SCH (15:24)
[2021-07-22] MEDS: Insulin GLARGINE 100 un/ml 10 ml VIAL SUBCUT SCH (21:25)
[2021-07-22] MEDS: Latanoprost 0.005% 2.5 ml BTL BOTH EYES SCH (21:29)
[2021-07-23 06:04] LABS: Hematocrit 29 % (35-47); Hemoglobin 9.6 g/dL (12.0-16.0); Mean Corpuscular HGB Conc 34 g/dL (31-36); Mean Corpuscular Hemoglobin 32 pg (27-31); Mean Corpuscular Volume 96 fL (80-97); Mean Platelet Volume 7.7 fL (7.4-10.4); Platelet Count 492 10^3/uL (150-450); Red Blood Count 2.97 10^6 /uL (3.70-4.87); Red Cell Distribution Width 14 % (10-15); White Blood Count 17.5 10^3/uL (3.5-10.8)
[2021-07-23 06:24] LABS: C Reactive Protein 182.55 mg/L (<8.01); Calcium 8.1 mg/dL (8.6-10.3); EGFR African American 67.9 (>60); EGFR Non-African American 56.1 (>60)
[2021-07-23 06:28] LABS: Potassium 5.2 mmol/L (3.5-5.0)
[2021-07-23 06:56] LABS: ABS Eosinophils 0.3 10^3/ul (0-0.6); ABS Lymphocytes 2.3 10^3/ul (1.0-4.8); ABS Monocytes 1.6 10^3/ul (0-0.8); ABS Neutrophils 13.3 10^3/ul (1.5-7.7); Eosinophil % 1.5 %; RBC Morphology Normal (Normal)
[2021-07-23] MEDS: SPIRIVA Respimat (tiotropium) 2.5 mcg/inh Inhaler INH SCH (07:37)
[2021-07-23] MEDS: Cholecalciferol (VIT D3) 1,000 unit TAB PO SCH (09:20)
[2021-07-23] MEDS: Multivitamins/Minerals TAB PO SCH (09:21)
[2021-07-23] MEDS: HYDROcodone/ACETAMIN 5/325 mg TAB PO PRN (09:22)
[2021-07-23] MEDS: Vancomycin 1,500 MG in NS 0.9% 250 ml 250 ML IVPB SCH (15:39)
[2021-07-23] MEDS: Insulin GLARGINE 100 un/ml 10 ml VIAL SUBCUT SCH (21:51)
[2021-07-23] MEDS: Potassium Chlor 20 meq TAB.ER PO SCH (21:52)
[2021-07-23] MEDS: Latanoprost 0.005% 2.5 ml BTL BOTH EYES SCH (21:53)
[2021-07-24] MEDS: SPIRIVA Respimat (tiotropium) 2.5 mcg/inh Inhaler INH SCH (07:16)
[2021-07-24] MEDS: Potassium Chlor 20 meq TAB.ER PO SCH ×2 (07:54→12:59)
[2021-07-24] MEDS: Multivitamins/Minerals TAB PO SCH (07:54)
[2021-07-24] MEDS: Cholecalciferol (VIT D3) 1,000 unit TAB PO SCH (07:57)
[2021-07-24] MEDS ORDERED: Vancomycin Trough Check NOTE FOLLOW UP ONE (13:30)
[2021-07-24 14:34] LABS: EGFR African American 61.3 (>60); EGFR Non-African American 50.7 (>60)
[2021-07-24 14:47] LABS: Vancomycin Trough 16.5 mcg/mL
[2021-07-24] MEDS: Vancomycin 1,500 MG in NS 0.9% 250 ml 250 ML IVPB SCH (15:48)
[2021-07-24] MEDS ORDERED: Metoprolol Tartrate 5 mg VIAL 5 ml VIAL (1 mg/ml) IV ONE (17:24)
[2021-07-24] MEDS: Latanoprost 0.005% 2.5 ml BTL BOTH EYES SCH (21:09)
[2021-07-24] MEDS: Insulin GLARGINE 100 un/ml 10 ml VIAL SUBCUT SCH (21:10)
[2021-07-25] MEDS: SPIRIVA Respimat (tiotropium) 2.5 mcg/inh Inhaler INH SCH (07:24)
[2021-07-25 07:31] LABS: EGFR African American 74.1 (>60); EGFR Non-African American 61.2 (>60)
[2021-07-25 09:36] LABS: Calcium 8.6 mg/dL (8.6-10.3); Potassium 4.6 mmol/L (3.5-5.0)
[2021-07-25] MEDS: Multivitamins/Minerals TAB PO SCH (09:38)
[2021-07-25] MEDS: Cholecalciferol (VIT D3) 1,000 unit TAB PO SCH (09:40)
[2021-07-25] MEDS: Vancomycin 1,250 MG in NS 0.9% 250 ml 250 ML IVPB SCH (14:24)
[2021-07-25] MEDS: Insulin GLARGINE 100 un/ml 10 ml VIAL SUBCUT SCH (20:16)
[2021-07-25] MEDS: Senna TAB 8.6 mg TAB PO PRN (20:17)
[2021-07-25] MEDS: Latanoprost 0.005% 2.5 ml BTL BOTH EYES SCH (20:53)
[2021-07-26 06:58] LABS: Hematocrit 27 % (35-47); Hemoglobin 9.3 g/dL (12.0-16.0); Mean Corpuscular HGB Conc 35 g/dL (31-36); Mean Corpuscular Hemoglobin 33 pg (27-31); Mean Corpuscular Volume 96 fL (80-97); Mean Platelet Volume 7.3 fL (7.4-10.4); Platelet Count 532 10^3/uL (150-450); Red Blood Count 2.81 10^6 /uL (3.70-4.87); Red Cell Distribution Width 14 % (10-15); White Blood Count 12.4 10^3/uL (3.5-10.8)
[2021-07-26] MEDS: SPIRIVA Respimat (tiotropium) 2.5 mcg/inh Inhaler INH SCH (07:18)
[2021-07-26 08:07] LABS: ABS Basophils 0.1 10^3/ul (0-0.2); ABS Eosinophils 0.1 10^3/ul (0-0.6); ABS Lymphocytes 2.2 10^3/ul (1.0-4.8); ABS Monocytes 1.1 10^3/ul (0-0.8); ABS Neutrophils 8.8 10^3/ul (1.5-7.7); Eosinophil % 1.1 %; Lymphocyte % 18.2 %
[2021-07-26 08:10] LABS: Polychromasia 1+
[2021-07-26] MEDS: Multivitamins/Minerals TAB PO SCH (10:42)
[2021-07-26] MEDS: Cholecalciferol (VIT D3) 1,000 unit TAB PO SCH (10:43)
[2021-07-26] MEDS ORDERED: Metoprolol Tartrate 5 mg VIAL 5 ml VIAL (1 mg/ml) IV ONE (12:35)
[2021-07-26] MEDS: Vancomycin 1,250 MG in NS 0.9% 250 ml 250 ML IVPB SCH (12:49)
[2021-07-26] MEDS ORDERED: Digoxin IV 0.5 MG/2 ML AMP (0.25 MG/ML) IV SLOW PU ONE ×2 (13:32→18:00)
[2021-07-26] MEDS: Senna TAB 8.6 mg TAB PO PRN (21:02)
[2021-07-26] MEDS: Insulin GLARGINE 100 un/ml 10 ml VIAL SUBCUT SCH (21:03)
[2021-07-26] MEDS: Latanoprost 0.005% 2.5 ml BTL BOTH EYES SCH (21:12)
[2021-07-27] MEDS ORDERED: Digoxin IV 0.5 MG/2 ML AMP (0.25 MG/ML) IV SLOW PU ONE (00:01)
[2021-07-27] MEDS: SPIRIVA Respimat (tiotropium) 2.5 mcg/inh Inhaler INH SCH (07:56)
[2021-07-27 08:37] LABS: ABS Basophils 0.1 10^3/ul (0-0.2); ABS Eosinophils 0.1 10^3/ul (0-0.6); ABS Lymphocytes 2.2 10^3/ul (1.0-4.8); ABS Monocytes 1.1 10^3/ul (0-0.8); ABS Neutrophils 7.6 10^3/ul (1.5-7.7); Eosinophil % 1.2 %; Hematocrit 29 % (35-47); Hemoglobin 9.8 g/dL (12.0-16.0); Lymphocyte % 19.6 %; Mean Corpuscular HGB Conc 34 g/dL (31-36); Mean Corpuscular Hemoglobin 33 pg (27-31); Mean Corpuscular Volume 97 fL (80-97); Mean Platelet Volume 7.2 fL (7.4-10.4); Nucleated Red Blood Cells % 0.1; Platelet Count 512 10^3/uL (150-450); Red Blood Count 2.98 10^6 /uL (3.70-4.87); Red Cell Distribution Width 14 % (10-15); White Blood Count 11.2 10^3/uL (3.5-10.8)
[2021-07-27] MEDS: Multivitamins/Minerals TAB PO SCH (08:42)
[2021-07-27] MEDS: Cholecalciferol (VIT D3) 1,000 unit TAB PO SCH (08:43)
[2021-07-27 08:47] LABS: Calcium 8.8 mg/dL (8.6-10.3); EGFR African American 59.4 (>60); EGFR Non-African American 49.1 (>60); Potassium 4.3 mmol/L (3.5-5.0)
[2021-07-27] MEDS: Vancomycin 1,250 MG in NS 0.9% 250 ml 250 ML IVPB SCH (18:15)
[2021-07-27] MEDS: Insulin GLARGINE 100 un/ml 10 ml VIAL SUBCUT SCH (20:22)
[2021-07-27] MEDS: Latanoprost 0.005% 2.5 ml BTL BOTH EYES SCH (20:22)
[2021-07-27] MEDS: Senna TAB 8.6 mg TAB PO PRN (20:22)
[2021-07-27] MEDS: Saline FLUSH-CENTRAL 10 ML SYRINGE CENT\\PICC SCH (20:23)
[2021-07-28] MEDS: Saline FLUSH-CENTRAL 10 ML SYRINGE CENT\\PICC SCH ×3 (04:40→21:33)
[2021-07-28] MEDS: SPIRIVA Respimat (tiotropium) 2.5 mcg/inh Inhaler INH SCH (07:03)
[2021-07-28 08:06] LABS: ABS Basophils 0.1 10^3/ul (0-0.2); ABS Eosinophils 0.2 10^3/ul (0-0.6); ABS Lymphocytes 2.4 10^3/ul (1.0-4.8); ABS Neutrophils 7.4 10^3/ul (1.5-7.7); Eosinophil % 1.7 %; Hematocrit 28 % (35-47); Hemoglobin 9.6 g/dL (12.0-16.0); Lymphocyte % 21.5 %; Mean Corpuscular HGB Conc 34 g/dL (31-36); Mean Corpuscular Hemoglobin 33 pg (27-31); Mean Corpuscular Volume 96 fL (80-97); Mean Platelet Volume 6.9 fL (7.4-10.4); Platelet Count 496 10^3/uL (150-450); Red Blood Count 2.94 10^6 /uL (3.70-4.87); Red Cell Distribution Width 14 % (10-15); White Blood Count 11.1 10^3/uL (3.5-10.8)
[2021-07-28 08:16] LABS: Calcium 8.8 mg/dL (8.6-10.3); EGFR Non-African American 64.5 (>60); Potassium 3.9 mmol/L (3.5-5.0)
[2021-07-28] MEDS: Multivitamins/Minerals TAB PO SCH (09:28)
[2021-07-28] MEDS: Cholecalciferol (VIT D3) 1,000 unit TAB PO SCH (09:29)
[2021-07-28 09:39] LABS: C Reactive Protein 23.5 mg/L (<8.01)
[2021-07-28] MEDS ORDERED: Vancomycin Trough Check NOTE FOLLOW UP ONE (13:30)
[2021-07-28 14:27] LABS: EGFR African American 71.3 (>60); EGFR Non-African American 58.9 (>60)
[2021-07-28 15:08] LABS: Vancomycin Trough 21.1 mcg/mL
[2021-07-28] MEDS: Vancomycin 1,250 MG in NS 0.9% 250 ml 250 ML IVPB SCH (16:22)
[2021-07-28] MEDS: Vancomycin 1000 MG in NS 0.9% 250 ML IVPB SCH (17:51)
[2021-07-28] MEDS: Senna TAB 8.6 mg TAB PO PRN (21:28)
[2021-07-28] MEDS: Insulin GLARGINE 100 un/ml 10 ml VIAL SUBCUT SCH (21:29)
[2021-07-28] MEDS: Latanoprost 0.005% 2.5 ml BTL BOTH EYES SCH (21:31)
[2021-07-29] MEDS: Saline FLUSH-CENTRAL 10 ML SYRINGE CENT\\PICC SCH ×3 (05:00→21:48)
[2021-07-29] MEDS: SPIRIVA Respimat (tiotropium) 2.5 mcg/inh Inhaler INH SCH (10:01)
[2021-07-29] MEDS: Multivitamins/Minerals TAB PO SCH (10:51)
[2021-07-29] MEDS: Cholecalciferol (VIT D3) 1,000 unit TAB PO SCH (10:52)
[2021-07-29 11:29] LABS: ABS Basophils 0.1 10^3/ul (0-0.2); ABS Eosinophils 0.2 10^3/ul (0-0.6); ABS Lymphocytes 1.9 10^3/ul (1.0-4.8); ABS Neutrophils 7.7 10^3/ul (1.5-7.7); Eosinophil % 1.7 %; Hematocrit 28 % (35-47); Hemoglobin 9.4 g/dL (12.0-16.0); Lymphocyte % 17.2 %; Mean Corpuscular HGB Conc 33 g/dL (31-36); Mean Corpuscular Hemoglobin 33 pg (27-31); Mean Corpuscular Volume 97 fL (80-97); Platelet Count 497 10^3/uL (150-450); Red Blood Count 2.89 10^6 /uL (3.70-4.87); Red Cell Distribution Width 14 % (10-15); White Blood Count 10.8 10^3/uL (3.5-10.8)
[2021-07-29 11:45] LABS: Calcium 8.8 mg/dL (8.6-10.3); EGFR African American 74.1 (>60); EGFR Non-African American 61.2 (>60); Potassium 4.4 mmol/L (3.5-5.0)
[2021-07-29] MEDS: diPHENhydraMINE IV 50 MG/ML 1 ml VIAL (BENADRYL) IV PRN ×2 (13:33→20:03)
[2021-07-29] MEDS: Vancomycin 1000 MG in NS 0.9% 250 ML IVPB SCH (18:00)
[2021-07-29] MEDS: Insulin GLARGINE 100 un/ml 10 ml VIAL SUBCUT SCH (20:11)
[2021-07-29] MEDS: Latanoprost 0.005% 2.5 ml BTL BOTH EYES SCH (20:12)
[2021-07-30] MEDS: Saline FLUSH-CENTRAL 10 ML SYRINGE CENT\\PICC SCH ×2 (05:57→14:02)
[2021-07-30 06:21] LABS: EGFR African American 67.1 (>60); EGFR Non-African American 55.5 (>60)
[2021-07-30 08:32] LABS: ABS Basophils 0.1 10^3/ul (0-0.2); ABS Eosinophils 0.2 10^3/ul (0-0.6); ABS Lymphocytes 2.3 10^3/ul (1.0-4.8); ABS Monocytes 0.9 10^3/ul (0-0.8); ABS Neutrophils 5.5 10^3/ul (1.5-7.7); Eosinophil % 2.2 %; Hematocrit 26 % (35-47); Hemoglobin 8.9 g/dL (12.0-16.0); Lymphocyte % 25.4 %; Mean Corpuscular HGB Conc 34 g/dL (31-36); Mean Corpuscular Hemoglobin 33 pg (27-31); Mean Corpuscular Volume 97 fL (80-97); Mean Platelet Volume 7.2 fL (7.4-10.4); Platelet Count 449 10^3/uL (150-450); Red Blood Count 2.69 10^6 /uL (3.70-4.87); Red Cell Distribution Width 14 % (10-15)
[2021-07-30] MEDS: Multivitamins/Minerals TAB PO SCH (10:39)
[2021-07-30] MEDS: Cholecalciferol (VIT D3) 1,000 unit TAB PO SCH (10:39)
[2021-07-30] MEDS: SPIRIVA Respimat (tiotropium) 2.5 mcg/inh Inhaler INH SCH (10:56)
[2021-07-30 15:40] VITALS: BP 109/50
[2021-07-31] MEDS ORDERED: Vancomycin Trough Check NOTE FOLLOW UP ONE (17:30)
== END 2021-07-30 16:45 | disposition swing bed (61) | DRG 981 ==
LOC: MEDTELE 11:52 → ED 11:52 → SUATTDRO 16:57 → OBSVTOIN 16:57 → MEDTELE 20:19 → UNDODISIN 07-30 16:49
PROVIDERS: ADMIT Student in an Organized Health Care Education/Training Program; ATTEND Hospitalist
PROC: [UNRECOGNIZED PROCEDURE] (2021-07-20 17:45)

== ENCOUNTER 2021-07-30 17:09 | Inpatient (IN) ==
[2021-07-30] MEDS ORDERED: Senna TAB 8.6 mg TAB PO PRN (17:24)
[2021-07-30] MEDS ORDERED: Magnesium Hydroxide LIQ 30 ML UDC PO PRN (17:24)
[2021-07-30] MEDS ORDERED: Nystatin TOP POWDER 15 GM BTL TOPICAL PRN (17:24)
[2021-07-30] MEDS ORDERED: Dextran 70/Hypromellose Tears Eye Drops 15 ml BTL (for Artificials Tears) BOTH EYES PRN (17:56)
[2021-07-30] MEDS ORDERED: Vancomycin per Pharmacy 1 EA NOTE FOLLOW UP PRN (17:59)
[2021-07-30] MEDS: Vancomycin 1000 MG in NS 0.9% 250 ML IVPB SCH (19:46)
[2021-07-30] MEDS: Insulin GLARGINE 100 un/ml 10 ml VIAL SUBCUT SCH (21:12)
[2021-07-30] MEDS: Latanoprost 0.005% 2.5 ml BTL BOTH EYES SCH (21:15)
[2021-07-30] MEDS: Saline FLUSH-CENTRAL 10 ML SYRINGE CENT\\PICC SCH (21:15)
[2021-07-30] MEDS: diPHENhydraMINE IV 50 MG/ML 1 ml VIAL (BENADRYL) IV PRN (21:28)
[2021-07-31] MEDS: Saline FLUSH-CENTRAL 10 ML SYRINGE CENT\\PICC SCH ×3 (05:32→22:19)
[2021-07-31 06:55] LABS: ABS Basophils 0.1 10^3/ul (0-0.2); ABS Eosinophils 0.1 10^3/ul (0-0.6); ABS Monocytes 0.8 10^3/ul (0-0.8); ABS Neutrophils 4.6 10^3/ul (1.5-7.7); Eosinophil % 1.9 %; Hematocrit 26 % (35-47); Hemoglobin 8.6 g/dL (12.0-16.0); Lymphocyte % 26.4 %; Mean Corpuscular HGB Conc 34 g/dL (31-36); Mean Corpuscular Hemoglobin 33 pg (27-31); Mean Corpuscular Volume 97 fL (80-97); Platelet Count 400 10^3/uL (150-450); Red Blood Count 2.65 10^6 /uL (3.70-4.87); Red Cell Distribution Width 14 % (10-15); White Blood Count 7.7 10^3/uL (3.5-10.8)
[2021-07-31 07:06] LABS: Albumin 2.7 g/dL (3.2-5.2); Albumin/Globulin Ratio 0.8 (1-3); Calcium 8.5 mg/dL (8.6-10.3); EGFR African American 70.4 (>60); EGFR Non-African American 58.2 (>60); Globulin 3.5 g/dL (2-4); Potassium 3.7 mmol/L (3.5-5.0); Total Bilirubin 0.4 mg/dL (0.2-1.0); Total Protein 6.2 g/dL (6.4-8.9)
[2021-07-31] MEDS: SPIRIVA Respimat (tiotropium) 2.5 mcg/inh Inhaler INH SCH (07:44)
[2021-07-31] MEDS: Cholecalciferol (VIT D3) 1,000 unit TAB PO SCH (09:37)
[2021-07-31] MEDS: Multivitamins/Minerals TAB PO SCH (09:38)
[2021-07-31] MEDS ORDERED: Vancomycin Trough Check NOTE FOLLOW UP ONE (17:30)
[2021-07-31] MEDS: Vancomycin 1000 MG in NS 0.9% 250 ML IVPB SCH (18:20)
[2021-07-31] MEDS: Insulin GLARGINE 100 un/ml 10 ml VIAL SUBCUT SCH (20:21)
[2021-07-31] MEDS: Latanoprost 0.005% 2.5 ml BTL BOTH EYES SCH (20:24)
[2021-07-31] MEDS: diPHENhydraMINE IV 50 MG/ML 1 ml VIAL (BENADRYL) IV PRN (20:24)
[2021-08-01] MEDS: Saline FLUSH-CENTRAL 10 ML SYRINGE CENT\\PICC SCH ×3 (05:29→21:04)
[2021-08-01] MEDS: SPIRIVA Respimat (tiotropium) 2.5 mcg/inh Inhaler INH SCH (07:52)
[2021-08-01] MEDS: Multivitamins/Minerals TAB PO SCH (09:50)
[2021-08-01] MEDS: Cholecalciferol (VIT D3) 1,000 unit TAB PO SCH (09:50)
[2021-08-01] MEDS: Vancomycin 1000 MG in NS 0.9% 250 ML IVPB SCH (18:17)
[2021-08-01] MEDS: Latanoprost 0.005% 2.5 ml BTL BOTH EYES SCH (20:58)
[2021-08-01] MEDS: diPHENhydraMINE IV 50 MG/ML 1 ml VIAL (BENADRYL) IV PRN (20:58)
[2021-08-01] MEDS: Insulin GLARGINE 100 un/ml 10 ml VIAL SUBCUT SCH (20:58)
[2021-08-02] MEDS: Saline FLUSH-CENTRAL 10 ML SYRINGE CENT\\PICC SCH ×3 (06:16→22:00)
[2021-08-02] MEDS: SPIRIVA Respimat (tiotropium) 2.5 mcg/inh Inhaler INH SCH (07:54)
[2021-08-02] MEDS: Multivitamins/Minerals TAB PO SCH (09:37)
[2021-08-02] MEDS: Cholecalciferol (VIT D3) 1,000 unit TAB PO SCH (09:37)
[2021-08-02] MEDS: diPHENhydraMINE IV 50 MG/ML 1 ml VIAL (BENADRYL) IV PRN ×2 (17:33→22:34)
[2021-08-02] MEDS: Vancomycin 1000 MG in NS 0.9% 250 ML IVPB SCH (17:33)
[2021-08-02] MEDS: Latanoprost 0.005% 2.5 ml BTL BOTH EYES SCH (21:27)
[2021-08-02] MEDS: Insulin GLARGINE 100 un/ml 10 ml VIAL SUBCUT SCH (21:29)
[2021-08-03] MEDS: Saline FLUSH-CENTRAL 10 ML SYRINGE CENT\\PICC SCH ×3 (05:46→21:46)
[2021-08-03] MEDS: SPIRIVA Respimat (tiotropium) 2.5 mcg/inh Inhaler INH SCH (07:19)
[2021-08-03] MEDS: Multivitamins/Minerals TAB PO SCH (09:28)
[2021-08-03] MEDS: Cholecalciferol (VIT D3) 1,000 unit TAB PO SCH (09:29)
[2021-08-03] MEDS ORDERED: Vancomycin Trough Check NOTE FOLLOW UP ONE (17:30)
[2021-08-03 17:35] LABS: EGFR African American 50.7 (>60); EGFR Non-African American 41.9 (>60)
[2021-08-03 18:24] LABS: Vancomycin Trough 16.2 mcg/mL
[2021-08-03] MEDS: Vancomycin 1000 MG in NS 0.9% 250 ML IVPB SCH (19:52)
[2021-08-03] MEDS: diPHENhydraMINE IV 50 MG/ML 1 ml VIAL (BENADRYL) IV PRN (20:47)
[2021-08-03] MEDS: Insulin GLARGINE 100 un/ml 10 ml VIAL SUBCUT SCH (20:47)
[2021-08-03] MEDS: Latanoprost 0.005% 2.5 ml BTL BOTH EYES SCH (20:51)
[2021-08-04] MEDS: Saline FLUSH-CENTRAL 10 ML SYRINGE CENT\\PICC SCH ×2 (05:47→13:12)
[2021-08-04] MEDS: SPIRIVA Respimat (tiotropium) 2.5 mcg/inh Inhaler INH SCH (09:03)
[2021-08-04] MEDS: Cholecalciferol (VIT D3) 1,000 unit TAB PO SCH (09:27)
[2021-08-04] MEDS: Multivitamins/Minerals TAB PO SCH (09:28)
[2021-08-04] MEDS: Vancomycin 1000 MG in NS 0.9% 250 ML IVPB SCH (16:54)
[2021-08-04] MEDS: Insulin GLARGINE 100 un/ml 10 ml VIAL SUBCUT SCH (21:15)
[2021-08-04] MEDS: Latanoprost 0.005% 2.5 ml BTL BOTH EYES SCH (21:16)
[2021-08-04] MEDS: diPHENhydraMINE IV 50 MG/ML 1 ml VIAL (BENADRYL) IV PRN (21:33)
[2021-08-05] MEDS: Saline FLUSH-CENTRAL 10 ML SYRINGE CENT\\PICC SCH ×4 (00:16→20:42)
[2021-08-05] MEDS: Cholecalciferol (VIT D3) 1,000 unit TAB PO SCH (08:27)
[2021-08-05] MEDS: Multivitamins/Minerals TAB PO SCH (08:27)
[2021-08-05] MEDS: SPIRIVA Respimat (tiotropium) 2.5 mcg/inh Inhaler INH SCH (09:19)
[2021-08-05] MEDS: Vancomycin 1000 MG in NS 0.9% 250 ML IVPB SCH (18:29)
[2021-08-05] MEDS: Insulin GLARGINE 100 un/ml 10 ml VIAL SUBCUT SCH (20:37)
[2021-08-05] MEDS: Latanoprost 0.005% 2.5 ml BTL BOTH EYES SCH (20:42)
[2021-08-05] MEDS: diPHENhydraMINE IV 50 MG/ML 1 ml VIAL (BENADRYL) IV PRN (20:47)
[2021-08-06] MEDS: Saline FLUSH-CENTRAL 10 ML SYRINGE CENT\\PICC SCH ×3 (05:53→23:22)
[2021-08-06] MEDS: SPIRIVA Respimat (tiotropium) 2.5 mcg/inh Inhaler INH SCH (07:32)
[2021-08-06] MEDS: Multivitamins/Minerals TAB PO SCH (08:22)
[2021-08-06] MEDS: Cholecalciferol (VIT D3) 1,000 unit TAB PO SCH (08:22)
[2021-08-06] MEDS: Vancomycin 1000 MG in NS 0.9% 250 ML IVPB SCH (17:40)
[2021-08-06] MEDS: diPHENhydraMINE IV 50 MG/ML 1 ml VIAL (BENADRYL) IV PRN (20:42)
[2021-08-06] MEDS: Insulin GLARGINE 100 un/ml 10 ml VIAL SUBCUT SCH (21:33)
[2021-08-06] MEDS: Latanoprost 0.005% 2.5 ml BTL BOTH EYES SCH (23:22)
[2021-08-07] MEDS: Saline FLUSH-CENTRAL 10 ML SYRINGE CENT\\PICC SCH ×3 (05:22→22:11)
[2021-08-07 05:40] LABS: ABS Basophils 0.1 10^3/ul (0-0.2); ABS Eosinophils 0.5 10^3/ul (0-0.6); ABS Lymphocytes 1.9 10^3/ul (1.0-4.8); ABS Monocytes 0.8 10^3/ul (0-0.8); ABS Neutrophils 3.8 10^3/ul (1.5-7.7); Eosinophil % 6.8 %; Hematocrit 26 % (35-47); Hemoglobin 9.1 g/dL (12.0-16.0); Lymphocyte % 27.2 %; Mean Corpuscular HGB Conc 34 g/dL (31-36); Mean Corpuscular Hemoglobin 34 pg (27-31); Mean Corpuscular Volume 98 fL (80-97); Mean Platelet Volume 7.7 fL (7.4-10.4); Platelet Count 274 10^3/uL (150-450); Red Blood Count 2.69 10^6 /uL (3.70-4.87); Red Cell Distribution Width 16 % (10-15)
[2021-08-07 06:01] LABS: C Reactive Protein 4.31 mg/L (<8.01); Calcium 8.9 mg/dL (8.6-10.3); EGFR African American 66.3 (>60); EGFR Non-African American 54.8 (>60); Globulin 3.1 g/dL (2-4); Potassium 3.6 mmol/L (3.5-5.0); Total Bilirubin 0.5 mg/dL (0.2-1.0); Total Protein 6.1 g/dL (6.4-8.9)
[2021-08-07] MEDS: Multivitamins/Minerals TAB PO SCH (08:34)
[2021-08-07] MEDS: Cholecalciferol (VIT D3) 1,000 unit TAB PO SCH (08:35)
[2021-08-07] MEDS: SPIRIVA Respimat (tiotropium) 2.5 mcg/inh Inhaler INH SCH (08:47)
[2021-08-07] MEDS: Vancomycin 1000 MG in NS 0.9% 250 ML IVPB SCH (19:34)
[2021-08-07] MEDS: diPHENhydraMINE IV 50 MG/ML 1 ml VIAL (BENADRYL) IV PRN (21:25)
[2021-08-07] MEDS: Insulin GLARGINE 100 un/ml 10 ml VIAL SUBCUT SCH (21:26)
[2021-08-07] MEDS: Latanoprost 0.005% 2.5 ml BTL BOTH EYES SCH (21:58)
[2021-08-08] MEDS: Saline FLUSH-CENTRAL 10 ML SYRINGE CENT\\PICC SCH ×3 (06:28→21:11)
[2021-08-08] MEDS: SPIRIVA Respimat (tiotropium) 2.5 mcg/inh Inhaler INH SCH (08:40)
[2021-08-08] MEDS: Cholecalciferol (VIT D3) 1,000 unit TAB PO SCH (09:09)
[2021-08-08] MEDS: Multivitamins/Minerals TAB PO SCH (09:09)
[2021-08-08] MEDS: Vancomycin 1000 MG in NS 0.9% 250 ML IVPB SCH (17:56)
[2021-08-08] MEDS: Insulin GLARGINE 100 un/ml 10 ml VIAL SUBCUT SCH (21:07)
[2021-08-08] MEDS: diPHENhydraMINE IV 50 MG/ML 1 ml VIAL (BENADRYL) IV PRN (21:08)
[2021-08-08] MEDS: Latanoprost 0.005% 2.5 ml BTL BOTH EYES SCH (21:10)
[2021-08-09] MEDS: Saline FLUSH-CENTRAL 10 ML SYRINGE CENT\\PICC SCH ×3 (05:16→22:04)
[2021-08-09] MEDS: Cholecalciferol (VIT D3) 1,000 unit TAB PO SCH (08:33)
[2021-08-09] MEDS: Multivitamins/Minerals TAB PO SCH (08:33)
[2021-08-09] MEDS: SPIRIVA Respimat (tiotropium) 2.5 mcg/inh Inhaler INH SCH (09:03)
[2021-08-09 17:24] LABS: EGFR African American 63.4 (>60); EGFR Non-African American 52.4 (>60)
[2021-08-09] MEDS ORDERED: Vancomycin Trough Check NOTE FOLLOW UP ONE (17:30)
[2021-08-09 17:31] LABS: Vancomycin Trough 15.5 mcg/mL
[2021-08-09] MEDS: Vancomycin 1000 MG in NS 0.9% 250 ML IVPB SCH (18:06)
[2021-08-09] MEDS: diPHENhydraMINE IV 50 MG/ML 1 ml VIAL (BENADRYL) IV PRN (22:01)
[2021-08-09] MEDS: Insulin GLARGINE 100 un/ml 10 ml VIAL SUBCUT SCH (22:04)
[2021-08-09] MEDS: Latanoprost 0.005% 2.5 ml BTL BOTH EYES SCH (22:04)
[2021-08-10] MEDS: Saline FLUSH-CENTRAL 10 ML SYRINGE CENT\\PICC SCH ×3 (05:45→22:45)
[2021-08-10] MEDS: Cholecalciferol (VIT D3) 1,000 unit TAB PO SCH (08:05)
[2021-08-10] MEDS: Multivitamins/Minerals TAB PO SCH (08:05)
[2021-08-10] MEDS: SPIRIVA Respimat (tiotropium) 2.5 mcg/inh Inhaler INH SCH (08:37)
[2021-08-10] MEDS: Vancomycin 1000 MG in NS 0.9% 250 ML IVPB SCH (17:32)
[2021-08-10] MEDS: diPHENhydraMINE IV 50 MG/ML 1 ml VIAL (BENADRYL) IV PRN (20:24)
[2021-08-10] MEDS: Insulin GLARGINE 100 un/ml 10 ml VIAL SUBCUT SCH (21:18)
[2021-08-10] MEDS: Latanoprost 0.005% 2.5 ml BTL BOTH EYES SCH (21:18)
[2021-08-11] MEDS: Saline FLUSH-CENTRAL 10 ML SYRINGE CENT\\PICC SCH ×3 (05:19→21:18)
[2021-08-11] MEDS: SPIRIVA Respimat (tiotropium) 2.5 mcg/inh Inhaler INH SCH (08:16)
[2021-08-11] MEDS: Multivitamins/Minerals TAB PO SCH (08:39)
[2021-08-11] MEDS: Cholecalciferol (VIT D3) 1,000 unit TAB PO SCH (08:40)
[2021-08-11] MEDS: Vancomycin 1000 MG in NS 0.9% 250 ML IVPB SCH (16:53)
[2021-08-11] MEDS: Insulin GLARGINE 100 un/ml 10 ml VIAL SUBCUT SCH (21:09)
[2021-08-11] MEDS: diPHENhydraMINE IV 50 MG/ML 1 ml VIAL (BENADRYL) IV PRN (21:09)
[2021-08-11] MEDS: Latanoprost 0.005% 2.5 ml BTL BOTH EYES SCH (21:10)
[2021-08-12] MEDS: Saline FLUSH-CENTRAL 10 ML SYRINGE CENT\\PICC SCH ×4 (06:15→20:21)
[2021-08-12] MEDS: SPIRIVA Respimat (tiotropium) 2.5 mcg/inh Inhaler INH SCH (08:32)
[2021-08-12] MEDS: Cholecalciferol (VIT D3) 1,000 unit TAB PO SCH (08:45)
[2021-08-12] MEDS: Multivitamins/Minerals TAB PO SCH (08:46)
[2021-08-12] MEDS: Vancomycin 1000 MG in NS 0.9% 250 ML IVPB SCH (17:06)
[2021-08-12] MEDS: Insulin GLARGINE 100 un/ml 10 ml VIAL SUBCUT SCH (20:21)
[2021-08-12] MEDS: diPHENhydraMINE IV 50 MG/ML 1 ml VIAL (BENADRYL) IV PRN (20:21)
[2021-08-12] MEDS: Latanoprost 0.005% 2.5 ml BTL BOTH EYES SCH (20:22)
[2021-08-13] MEDS: Saline FLUSH-CENTRAL 10 ML SYRINGE CENT\\PICC SCH ×3 (05:30→21:15)
[2021-08-13] MEDS: Multivitamins/Minerals TAB PO SCH (09:16)
[2021-08-13] MEDS: Cholecalciferol (VIT D3) 1,000 unit TAB PO SCH (09:16)
[2021-08-13] MEDS: SPIRIVA Respimat (tiotropium) 2.5 mcg/inh Inhaler INH SCH (09:48)
[2021-08-13] MEDS: Vancomycin 1000 MG in NS 0.9% 250 ML IVPB SCH (17:27)
[2021-08-13] MEDS: Insulin GLARGINE 100 un/ml 10 ml VIAL SUBCUT SCH (21:10)
[2021-08-13] MEDS: diPHENhydraMINE IV 50 MG/ML 1 ml VIAL (BENADRYL) IV PRN (21:11)
[2021-08-13] MEDS: Nystatin TOP POWDER 15 GM BTL TOPICAL SCH (21:14)
[2021-08-13] MEDS: Latanoprost 0.005% 2.5 ml BTL BOTH EYES SCH (21:15)
[2021-08-14 06:32] LABS: ABS Basophils 0.1 10^3/ul (0-0.2); ABS Eosinophils 0.7 10^3/ul (0-0.6); ABS Lymphocytes 1.7 10^3/ul (1.0-4.8); ABS Monocytes 0.7 10^3/ul (0-0.8); ABS Neutrophils 2.4 10^3/ul (1.5-7.7); Eosinophil % 12.8 %; Hematocrit 28 % (35-47); Hemoglobin 9.3 g/dL (12.0-16.0); Lymphocyte % 29.9 %; Mean Corpuscular HGB Conc 33 g/dL (31-36); Mean Corpuscular Hemoglobin 33 pg (27-31); Mean Corpuscular Volume 99 fL (80-97); Mean Platelet Volume 8.2 fL (7.4-10.4); Platelet Count 215 10^3/uL (150-450); Red Blood Count 2.84 10^6 /uL (3.70-4.87); Red Cell Distribution Width 17 % (10-15); White Blood Count 5.6 10^3/uL (3.5-10.8)
[2021-08-14 06:49] LABS: Albumin 3.2 g/dL (3.2-5.2); Albumin/Globulin Ratio 1.1 (1-3); C Reactive Protein 2.17 mg/L (<8.01); Calcium 8.7 mg/dL (8.6-10.3); EGFR African American 68.7 (>60); EGFR Non-African American 56.8 (>60); Globulin 2.9 g/dL (2-4); Potassium 3.7 mmol/L (3.5-5.0); Total Bilirubin 0.4 mg/dL (0.2-1.0); Total Protein 6.1 g/dL (6.4-8.9)
[2021-08-14] MEDS: Multivitamins/Minerals TAB PO SCH (07:34)
[2021-08-14] MEDS: Cholecalciferol (VIT D3) 1,000 unit TAB PO SCH (07:34)
[2021-08-14] MEDS: Saline FLUSH-CENTRAL 10 ML SYRINGE CENT\\PICC SCH ×3 (07:37→21:28)
[2021-08-14] MEDS: Nystatin TOP POWDER 15 GM BTL TOPICAL SCH ×2 (07:39→21:29)
[2021-08-14] MEDS: SPIRIVA Respimat (tiotropium) 2.5 mcg/inh Inhaler INH SCH (09:04)
[2021-08-14] MEDS ORDERED: Vancomycin Trough Check NOTE FOLLOW UP ONE (17:30)
[2021-08-14] MEDS: Vancomycin 1000 MG in NS 0.9% 250 ML IVPB SCH (17:56)
[2021-08-14] MEDS: diPHENhydraMINE IV 50 MG/ML 1 ml VIAL (BENADRYL) IV PRN (21:28)
[2021-08-14] MEDS: Latanoprost 0.005% 2.5 ml BTL BOTH EYES SCH (21:30)
[2021-08-14] MEDS: Insulin GLARGINE 100 un/ml 10 ml VIAL SUBCUT SCH (22:00)
[2021-08-14 22:16] LABS: Rapid COVID-19 Molecular Undetected (Undetected)
[2021-08-15] MEDS: SPIRIVA Respimat (tiotropium) 2.5 mcg/inh Inhaler INH SCH (07:30)
[2021-08-15] MEDS: Cholecalciferol (VIT D3) 1,000 unit TAB PO SCH (09:20)
[2021-08-15] MEDS: Multivitamins/Minerals TAB PO SCH (09:22)
[2021-08-15] MEDS: Saline FLUSH-CENTRAL 10 ML SYRINGE CENT\\PICC SCH ×3 (09:23→21:18)
[2021-08-15] MEDS: Nystatin TOP POWDER 15 GM BTL TOPICAL SCH ×2 (09:23→21:19)
[2021-08-15] MEDS: Vancomycin 1000 MG in NS 0.9% 250 ML IVPB SCH (17:08)
[2021-08-15] MEDS: diPHENhydraMINE IV 50 MG/ML 1 ml VIAL (BENADRYL) IV PRN (21:15)
[2021-08-15] MEDS: Latanoprost 0.005% 2.5 ml BTL BOTH EYES SCH (21:19)
[2021-08-15] MEDS: Insulin GLARGINE 100 un/ml 10 ml VIAL SUBCUT SCH (21:40)
[2021-08-16] MEDS: Saline FLUSH-CENTRAL 10 ML SYRINGE CENT\\PICC SCH ×3 (05:47→22:17)
[2021-08-16] MEDS: SPIRIVA Respimat (tiotropium) 2.5 mcg/inh Inhaler INH SCH (08:15)
[2021-08-16] MEDS: Multivitamins/Minerals TAB PO SCH (09:58)
[2021-08-16] MEDS: Cholecalciferol (VIT D3) 1,000 unit TAB PO SCH (09:59)
[2021-08-16] MEDS: Nystatin TOP POWDER 15 GM BTL TOPICAL SCH ×2 (10:01→22:17)
[2021-08-16] MEDS: Vancomycin 1000 MG in NS 0.9% 250 ML IVPB SCH (16:30)
[2021-08-16] MEDS: Insulin GLARGINE 100 un/ml 10 ml VIAL SUBCUT SCH (22:15)
[2021-08-16] MEDS: Latanoprost 0.005% 2.5 ml BTL BOTH EYES SCH (22:16)
[2021-08-16] MEDS: diPHENhydraMINE IV 50 MG/ML 1 ml VIAL (BENADRYL) IV PRN (22:26)
[2021-08-17] MEDS: Saline FLUSH-CENTRAL 10 ML SYRINGE CENT\\PICC SCH (05:58)
[2021-08-17] MEDS: SPIRIVA Respimat (tiotropium) 2.5 mcg/inh Inhaler INH SCH (08:07)
[2021-08-17] MEDS: Multivitamins/Minerals TAB PO SCH (08:23)
[2021-08-17] MEDS: Cholecalciferol (VIT D3) 1,000 unit TAB PO SCH (08:23)
[2021-08-17 09:11] VITALS: BP 112/62
[2021-08-17] MEDS: Nystatin TOP POWDER 15 GM BTL TOPICAL SCH (10:47)
== END 2021-08-17 11:45 | DRG 289 ==
LOC: MEDTELE 17:09 → SUATTDRO 17:09
PROVIDERS: ADMIT Hospitalist; ATTEND Internal Medicine

== ENCOUNTER 2021-11-01 09:09 | Inpatient (IN) ==
[2021-11-01] MEDS ORDERED: NS 0.9% 1000 ml BAG 1,000 ML IV ONE (09:15)
[2021-11-01] MEDS ORDERED: Furosemide 40 mg/4 ml IV VIAL IV SLOW PU ONE (09:50)
[2021-11-01 10:39] LABS: Venous Bicarbonate HCO3 34.7 mmol/L (24-28)
[2021-11-01 10:58] LABS: ALT 35 U/L (7-52); AST 52 U/L (13-39); Albumin 3.4 g/dL (3.2-5.2); Albumin/Globulin Ratio 1.1 (1-3); Alkaline Phosphatase 106 U/L (35-149); Anion Gap 8 mmol/L (2-11); Blood Urea Nitrogen 44 mg/dL (6-24); CO2 Carbon Dioxide 35 mmol/L (22-32); Calcium 8.6 mg/dL (8.6-10.3); Chloride 91 mmol/L (101-111); Globulin 3.1 g/dL (2-4); Glucose 161 mg/dL (70-100); Magnesium 1.6 mg/dL (1.9-2.7); Potassium 3.7 mmol/L (3.5-5.0); Sodium 134 mmol/L (135-145); Total Protein 6.5 g/dL (6.4-8.9); eGFR CKD-EPI 51.3 (>60)
[2021-11-01 11:02] LABS: Urine Appearance Turbid; Urine Bilirubin Negative (Negative); Urine Blood 2+ (Negative); Urine Color Amber; Urine Glucose Negative (Negative); Urine Ketones Negative (Negative); Urine Nitrite Negative (Negative); Urine Protein 2+(100 mg/dL) (Negative); Urine Specific Gravity 1.012 (1.002-1.030); Urine Urobilinogen Negative (Negative)
[2021-11-01 11:02] LABS: Troponin I 0.07 ng/mL (<0.03)
[2021-11-01 11:07] LABS: Urine Bacteria 1+ (Absent); Urine Red Blood Cell 1+(3-5/hpf) (Absent); Urine Squamous Epithelial Cell Present (Absent); Urine White Blood Cell 3+(>20/hpf) (Absent)
[2021-11-01 11:17] LABS: Digoxin 0.8 ng/ml (0.8-2.0)
[2021-11-01] MEDS ORDERED: cefTRIAXone 1 gm/50 mL NS BAG 1 GM/50 ML BAG IV ONE (11:18)
[2021-11-01 11:26] LABS: ABS Lymphocytes 0.5 10^3/ul (1.0-4.8); ABS Monocytes 0.3 10^3/ul (0-0.8); ABS Neutrophils 6.6 10^3/ul (1.5-7.7); Anisocytosis 2+; Basophilic Stippling 2+; Eosinophil % 0.4 %; Hematocrit 40 % (35-47); Hemoglobin 13.5 g/dL (12.0-16.0); Lymphocyte % 6.7 %; Mean Corpuscular HGB Conc 34 g/dL (31-36); Mean Corpuscular Hemoglobin 32 pg (27-31); Mean Corpuscular Volume 93 fL (80-97); Nucleated Red Blood Cells % 0.1; Platelet Count 97 10^3/uL (150-450); Red Blood Count 4.26 10^6 /uL (3.70-4.87); Red Cell Distribution Width 19 % (10-15); White Blood Count 7.4 10^3/uL (3.5-10.8)
[2021-11-01] MEDS ORDERED: diPHENhydraMINE 25 mg TAB PO PRN (12:02)
[2021-11-01] MEDS ORDERED: Dextrose 50% Syringe 50 ml 25 GM/50 ML SYRINGE IV PUSH PRN (12:06)
[2021-11-01 14:22] LABS: Troponin I 0.07 ng/mL (<0.03)
[2021-11-01 14:31] LABS: Rapid COVID-19 Molecular Undetected (Undetected)
[2021-11-01] MEDS ORDERED: Magnesium Sulfate IV 1GM/100ML 1 GM/100 ML BAG IV ONE (15:07)
[2021-11-01 17:59] LABS: Troponin I 0.07 ng/mL (<0.03)
[2021-11-01] MEDS: Nystatin TOP POWDER 15 GM BTL TOPICAL SCH (20:43)
[2021-11-01] MEDS: Latanoprost 0.005% 2.5 ml BTL BOTH EYES SCH (20:44)
[2021-11-01 21:00] LABS: Troponin I 0.07 ng/mL (<0.03)
[2021-11-02] MEDS ORDERED: Metoprolol Tartrate 5 mg VIAL 5 ml VIAL (1 mg/ml) IV ONE (02:31)
[2021-11-02] MEDS: Nystatin TOP POWDER 15 GM BTL TOPICAL SCH ×2 (08:55→20:25)
[2021-11-02] MEDS ORDERED: Furosemide 20 mg/2 ml IV VIAL IV SLOW PU SCH (09:00)
[2021-11-02 09:42] LABS: ABS Lymphocytes 0.4 10^3/ul (1.0-4.8); ABS Monocytes 0.1 10^3/ul (0-0.8); ABS Neutrophils 4.7 10^3/ul (1.5-7.7); Eosinophil % 0.6 %; Hematocrit 40 % (35-47); Hemoglobin 13.4 g/dL (12.0-16.0); Lymphocyte % 8.2 %; Mean Corpuscular HGB Conc 34 g/dL (31-36); Mean Corpuscular Hemoglobin 31 pg (27-31); Mean Corpuscular Volume 93 fL (80-97); Mean Platelet Volume 9.5 fL (7.4-10.4); Nucleated Red Blood Cells % 0.1; Platelet Count 83 10^3/uL (150-450); Red Blood Count 4.27 10^6 /uL (3.70-4.87); Red Cell Distribution Width 20 % (10-15); White Blood Count 5.3 10^3/uL (3.5-10.8)
[2021-11-02 09:55] LABS: Calcium 8.8 mg/dL (8.6-10.3); Magnesium 2.1 mg/dL (1.9-2.7); Potassium 4.1 mmol/L (3.5-5.0)
[2021-11-02] MEDS: cefTRIAXone 1 gm/50 mL NS BAG 1 GM/50 ML BAG IVPB SCH (12:42)
[2021-11-02] MEDS: Latanoprost 0.005% 2.5 ml BTL BOTH EYES SCH (20:25)
[2021-11-03 06:38] LABS: Hematocrit 40 % (35-47); Hemoglobin 13.7 g/dL (12.0-16.0); Mean Corpuscular HGB Conc 34 g/dL (31-36); Mean Corpuscular Hemoglobin 32 pg (27-31); Mean Corpuscular Volume 93 fL (80-97); Mean Platelet Volume 9.9 fL (7.4-10.4); Platelet Count 89 10^3/uL (150-450); Red Blood Count 4.36 10^6 /uL (3.70-4.87); Red Cell Distribution Width 20 % (10-15); White Blood Count 1.8 10^3/uL (3.5-10.8)
[2021-11-03 06:49] LABS: Potassium 4.6 mmol/L (3.5-5.0); eGFR CKD-EPI 46.7 (>60)
[2021-11-03 06:56] LABS: ABS Lymphocytes 0.2 10^3/ul (1.0-4.8); ABS Neutrophils 1.5 10^3/ul (1.5-7.7); Eosinophil % 0.5 %; Lymphocyte % 9.4 %; Nucleated Red Blood Cells % 0.1
[2021-11-03] MEDS: Nystatin TOP POWDER 15 GM BTL TOPICAL SCH ×2 (08:38→20:25)
[2021-11-03] MEDS ORDERED: NS 0.9% 500 ml BAG 500 ML IV ONE (08:46)
[2021-11-03] MEDS: cefTRIAXone 1 gm/50 mL NS BAG 1 GM/50 ML BAG IVPB SCH (12:07)
[2021-11-03] MEDS ORDERED: Iodixanol (CONTRAST) 320 MG/ML 100 ML SDV IV ONE (17:28)
[2021-11-03] MEDS ORDERED: Remdesivir 100 mg Vial 200 MG in NS 0.9% 250 ml 210 ML IV ONE (18:00)
[2021-11-03 20:09] LABS: INR 3.37 (0.86-1.15)
[2021-11-03 20:17] LABS: Albumin 2.7 g/dL (3.2-5.2); CO2 Carbon Dioxide 29 mmol/L (22-32); Calcium 7.7 mg/dL (8.6-10.3); Chloride 90 mmol/L (101-111); Sodium 130 mmol/L (135-145)
[2021-11-03 20:22] LABS: ALT 69 U/L (7-52); Alkaline Phosphatase 153 U/L (35-149); Blood Urea Nitrogen 77 mg/dL (6-24); Globulin 2.8 g/dL (2-4); Glucose 178 mg/dL (70-100); Total Protein 5.5 g/dL (6.4-8.9); eGFR CKD-EPI 37.9 (>60)
[2021-11-03] MEDS: Latanoprost 0.005% 2.5 ml BTL BOTH EYES SCH (20:25)
[2021-11-03 20:36] LABS: Anion Gap 11 mmol/L (2-11)
[2021-11-04] MEDS ORDERED: ZOSYN 3.375 GM Q12H per EXTENDED INFUSION IV SCH (03:30)
[2021-11-04 06:46] LABS: INR 3.31 (0.86-1.15)
[2021-11-04 06:47] LABS: ABS Lymphocytes 0.2 10^3/ul (1.0-4.8); ABS Neutrophils 0.5 10^3/ul (1.5-7.7); Hematocrit 42 % (35-47); Hemoglobin 14.5 g/dL (12.0-16.0); Lymphocyte % 23.9 %; Mean Corpuscular HGB Conc 34 g/dL (31-36); Mean Corpuscular Hemoglobin 32 pg (27-31); Mean Corpuscular Volume 92 fL (80-97); Mean Platelet Volume 9.6 fL (7.4-10.4); Nucleated Red Blood Cells % 0.7; Platelet Count 107 10^3/uL (150-450); Red Blood Count 4.59 10^6 /uL (3.70-4.87); Red Cell Distribution Width 21 % (10-15); White Blood Count 0.6 10^3/uL (3.5-10.8)
[2021-11-04 06:56] LABS: Albumin 2.9 g/dL (3.2-5.2); Albumin/Globulin Ratio 0.9 (1-3); Calcium 7.8 mg/dL (8.6-10.3); Globulin 3.3 g/dL (2-4); Magnesium 2.6 mg/dL (1.9-2.7); Total Protein 6.2 g/dL (6.4-8.9); eGFR CKD-EPI 30.4 (>60)
[2021-11-04 07:02] LABS: Potassium 5.1 mmol/L (3.5-5.0)
[2021-11-04] MEDS: Nystatin TOP POWDER 15 GM BTL TOPICAL SCH ×2 (07:51→23:10)
[2021-11-04] MEDS ORDERED: SODIUM ZIRCONIUM CYCLOSILICATE 5 GM PACKET PO ONE (08:49)
[2021-11-04] MEDS ORDERED: NS 0.9% 1000 ml BAG 1,000 ML IV SCH ×2 (10:30→15:27)
[2021-11-04] MEDS ORDERED: NS 0.9% 500 ml BAG 500 ML IV ONE (11:58)
[2021-11-04] MEDS: cefTRIAXone 1 gm/50 mL NS BAG 1 GM/50 ML BAG IVPB SCH (13:58)
[2021-11-04 15:32] LABS: Urine Appearance Cloudy; Urine Bilirubin Negative (Negative); Urine Blood Negative (Negative); Urine Color Amber; Urine Glucose 1+(50 mg/dL) (Negative); Urine Ketones Negative (Negative); Urine Nitrite Negative (Negative); Urine Protein Negative (Negative); Urine Urobilinogen Negative (Negative)
[2021-11-04 15:41] LABS: Urine Bacteria 1+ (Absent); Urine Red Blood Cell 3+(>10/hpf) (Absent); Urine White Blood Cell 3+(>20/hpf) (Absent)
[2021-11-04 18:00] LABS: PCO2 Arterial 54 mmHg (35-45); PO2 Arterial 69 mmHg (80-100)
[2021-11-04] MEDS ORDERED: methylPREDNISolone 125 mg 2 ML VIAL IV ONE (18:13)
[2021-11-04 19:37] LABS: Calcium 6.8 mg/dL (8.6-10.3); Potassium 4.9 mmol/L (3.5-5.0); eGFR CKD-EPI 19.5 (>60)
[2021-11-04] MEDS ORDERED: Norepinephrine 16MCG/ML IVPRE 4,000 MCG/250 ML BAG IV ONE (20:38)
[2021-11-04] MEDS ORDERED: Remdesivir 100 mg Vial 100 MG in NS 0.9% 250 ml 230 ML IV SCH (21:00)
[2021-11-04] MEDS ORDERED: methylPREDNISolone SOD 40 mg/ml 1 ml VIAL IV SCH (21:00)
[2021-11-04] MEDS ORDERED: Piperacillin/Tazobac ADVAN 3.375 GM in NS 0.9% 100 ml BAG 100 ML IV ONE (21:08)
[2021-11-04 21:12] LABS: PCO2 Arterial 56 mmHg (35-45); PO2 Arterial 64 mmHg (80-100)
[2021-11-04 21:37] LABS: ABS Lymphocytes 0.2 10^3/ul (1.0-4.8); ABS Neutrophils 0.2 10^3/ul (1.5-7.7); Eosinophil % 0.3 %; Hematocrit 45 % (35-47); Lymphocyte % 54.8 %; Mean Corpuscular HGB Conc 33 g/dL (31-36); Mean Corpuscular Hemoglobin 31 pg (27-31); Mean Corpuscular Volume 93 fL (80-97); Mean Platelet Volume 9.9 fL (7.4-10.4); Platelet Count 128 10^3/uL (150-450); Red Blood Count 4.83 10^6 /uL (3.70-4.87); Red Cell Distribution Width 21 % (10-15); White Blood Count 0.4 10^3/uL (3.5-10.8)
[2021-11-04 21:38] LABS: Albumin 2.7 g/dL (3.2-5.2); CO2 Carbon Dioxide 23 mmol/L (22-32); Calcium 6.8 mg/dL (8.6-10.3); Chloride 95 mmol/L (101-111); Sodium 133 mmol/L (135-145)
[2021-11-04 21:44] LABS: ALT 66 U/L (7-52); Albumin/Globulin Ratio 0.9 (1-3); Alkaline Phosphatase 247 U/L (35-149); Anion Gap 15 mmol/L (2-11); Blood Urea Nitrogen 101 mg/dL (6-24); Glucose 91 mg/dL (70-100); Total Protein 5.7 g/dL (6.4-8.9); eGFR CKD-EPI 19.2 (>60)
[2021-11-04] MEDS ORDERED: Baricitinib 2 MG TAB (NF) PO SCH (22:00)
[2021-11-04] MEDS ORDERED: Zosyn per Pharmacy NOTE FOLLOW UP SCH (22:00)
[2021-11-04 22:19] LABS: Activated Partial Thrombo Time 37.9 seconds (26.0-38.0); INR 4.67 (0.86-1.15)
[2021-11-04 22:27] LABS: Magnesium 2.9 mg/dL (1.9-2.7)
[2021-11-04 22:30] LABS: Phosphorus 6.7 mg/dL (2.5-5.0); Potassium Redraw 5.3 mmol/L (3.5-5.0)
[2021-11-04] MEDS ORDERED: Vancomycin per Pharmacy 1 EA NOTE FOLLOW UP SCH (23:00)
[2021-11-04] MEDS ORDERED: Vancomycin 1500 MG IV - x ONCE IVPB ONE (23:00)
[2021-11-04] MEDS: Hydrocortisone INJ 100 MG/2ML 2 ML VIAL IV SCH (23:10)
[2021-11-04] MEDS: Latanoprost 0.005% 2.5 ml BTL BOTH EYES SCH (23:11)
[2021-11-04 23:30] LABS: PCO2 Arterial 61 mmHg (35-45)
[2021-11-04 23:31] LABS: PO2 Arterial 57 mmHg (80-100)
[2021-11-04] MEDS ORDERED: Rocuronium 50 mg VIAL 10 mg/ml 5 ml VIAL (50 mg) ONE (23:43)
[2021-11-04] MEDS ORDERED: Succinylcholine 200 mg VIAL 20 mg/ml 10 ml VIAL (200 mg) ONE (23:43)
[2021-11-04 23:52] LABS: Troponin I 0.17 ng/mL (<0.03)
[2021-11-04] MEDS ORDERED: Phenylephrine IV 10 MG/ML 1 ml VIAL ONE (23:53)
[2021-11-05] MEDS ORDERED: Succinylcholine 200 mg VIAL 20 mg/ml 10 ml VIAL (200 mg) ONE
[2021-11-05] MEDS ORDERED: Etomidate 40 mg/20 ml (2 MG/ML) 20 ml VIAL (40 mg) ONE
[2021-11-05] MEDS ORDERED: fentaNYL INFUSION 50 mcg/mL VL 2,500 MCG/50 ML VIAL IV SCH (01:00)
[2021-11-05] MEDS ORDERED: fentaNYL 100 mcg/2 ml 50 MCG/ML VIAL ONE (01:02)
[2021-11-05] MEDS ORDERED: Vasopressin 100 UNITS in D5W 250 ml BAG 245 ML IV SCH (01:30)
[2021-11-05] MEDS ORDERED: Lactated Ringers 1000 ml BAG 1,000 ML IV ONE (01:43)
[2021-11-05] MEDS: Norepinephrine 16MCG/ML IVPRE 4,000 MCG/250 ML BAG IV SCH ×2 (01:48)
[2021-11-05 01:50] LABS: PCO2 Arterial 44 mmHg (35-45); PO2 Arterial 63 mmHg (80-100)
[2021-11-05 01:58] LABS: Anion Gap 16 mmol/L (2-11); Blood Urea Nitrogen 101 mg/dL (6-24); CO2 Carbon Dioxide 22 mmol/L (22-32); Chloride 95 mmol/L (101-111); Glucose 90 mg/dL (70-100); Potassium 4.9 mmol/L (3.5-5.0); Sodium 133 mmol/L (135-145); eGFR CKD-EPI 17.7 (>60)
[2021-11-05] MEDS: PHENYLEPHRINE DRIP IVPREMIX 50 MG/250 ML BAG IV SCH ×3 (02:00→08:08)
[2021-11-05 02:04] LABS: Calcium 6.1 mg/dL (8.6-10.3)
[2021-11-05] MEDS ORDERED: Calcium Gluconate 2 GM in NS 0.9% 100 ml BAG 100 ML IV ONE ×2 (02:14→06:19)
[2021-11-05] MEDS ORDERED: fentaNYL 100 mcg/2 ml 50 MCG/ML VIAL IV SLOW PU ONE (02:21)
[2021-11-05] MEDS ORDERED: Lactated Ringers 500 ml BAG 500 ML IV ONE ×2 (03:00→06:19)
[2021-11-05] MEDS: Norepinephrine *QUAD STRENGTH* 16 mg/250 mL NS per protocol IV SCH ×2 (03:29→09:47)
[2021-11-05] MEDS ORDERED: ZOSYN 3.375 GM Q12H per EXTENDED INFUSION IV SCH (03:30)
[2021-11-05] MEDS: Chlorhexidine MOUTHWASH 0.12% 15 ML UDC TOPICAL SCH ×3 (03:39→09:08)
[2021-11-05] MEDS ORDERED: Dexmedetomidine 1,000 MCG in NS 0.9% 250 ml 240 ML IV SCH (04:00)
[2021-11-05 05:14] LABS: ABS Lymphocytes 0.3 10^3/ul (1.0-4.8); ABS Neutrophils 0.2 10^3/ul (1.5-7.7); Eosinophil % 0.7 %; Hematocrit 39 % (35-47); Hemoglobin 12.9 g/dL (12.0-16.0); Lymphocyte % 58.7 %; Mean Corpuscular HGB Conc 33 g/dL (31-36); Mean Corpuscular Hemoglobin 32 pg (27-31); Mean Corpuscular Volume 95 fL (80-97); Nucleated Red Blood Cells % 0.4; Platelet Count 83 10^3/uL (150-450); Red Blood Count 4.06 10^6 /uL (3.70-4.87); Red Cell Distribution Width 20 % (10-15); White Blood Count 0.6 10^3/uL (3.5-10.8)
[2021-11-05 05:20] LABS: Albumin 2.1 g/dL (3.2-5.2); Albumin/Globulin Ratio 0.9 (1-3); Calcium 6.7 mg/dL (8.6-10.3); Globulin 2.3 g/dL (2-4); Magnesium 2.8 mg/dL (1.9-2.7); Total Bilirubin 1.3 mg/dL (0.2-1.0); Total Protein 4.4 g/dL (6.4-8.9); eGFR CKD-EPI 17.5 (>60)
[2021-11-05 05:31] LABS: Potassium 5.1 mmol/L (3.5-5.0)
[2021-11-05 05:43] LABS: INR 6.63 (0.86-1.15)
[2021-11-05] MEDS ORDERED: Sodium Bicarbonate 8.4% SYR 50 ml SYRINGE IV ONE ×2 (06:03→06:11)
[2021-11-05] MEDS ORDERED: Sodium Bicarbonate 8.4% SYR 50 ml SYRINGE ONE (06:05)
[2021-11-05] MEDS ORDERED: Sodium Bicarbonate 8.4% VIAL 1 MEQ/ML 50 ml VIAL (50 meq) ONE ×2 (06:13→06:23)
[2021-11-05 06:14] LABS: PCO2 Arterial 35 mmHg (35-45); PO2 Arterial 61 mmHg (80-100)
[2021-11-05] MEDS ORDERED: Sodium Bicarb 8.4% Vial 50 ML 150 MEQ in D5W 1000 ml BAG 850 ML IV SCH (06:30)
[2021-11-05] MEDS ORDERED: Calcium CHLORIDE 10% SYRINGE 1 GM/10 ML ONE (06:31)
[2021-11-05 08:13] LABS: PCO2 Arterial 39 mmHg (35-45); PO2 Arterial 66 mmHg (80-100)
[2021-11-05 08:53] LABS: Troponin I 0.27 ng/mL (<0.03)
[2021-11-05] MEDS ORDERED: Pantoprazole VIAL 40 MG VIAL IV SCH (09:00)
[2021-11-05] MEDS ORDERED: Dulaglutide (NF) 0.75 MG/0.5 ML SYRINGE SUBCUT SCH (09:00)
[2021-11-05] MEDS ORDERED: Cholecalciferol (VIT D3) 1,000 unit TAB PO SCH (09:00)
[2021-11-05] MEDS ORDERED: Hydrocortisone INJ 100 MG/2ML 2 ML VIAL IV SCH (09:30)
[2021-11-05] MEDS: Hydrocortisone INJ 100 MG/2ML 2 ML VIAL IV SCH (09:31)
[2021-11-05] MEDS: Nystatin TOP POWDER 15 GM BTL TOPICAL SCH (10:25)
[2021-11-05] MEDS ORDERED: Morphine 2 MG/ML SYRINGE IV PRN (10:38)
[2021-11-05] MEDS ORDERED: Morphine 10 MG/ML VIAL (1 ml) IV ONE (10:42)
[2021-11-05] MEDS ORDERED: LORazepam 2 mg VIAL 1 ml IV PUSH ONE (10:42)
[2021-11-05] MEDS ORDERED: Lorazepam PYXIS KEY PRN ×2 (10:42→10:57)
[2021-11-05] MEDS ORDERED: Morphine 10 MG/ML VIAL (1 ml) ONE (10:47)
[2021-11-05] MEDS ORDERED: LORazepam 2 mg VIAL 1 ml IV PUSH PRN (10:57)
[2021-11-05 12:03] VITALS: BP 74/43
[2021-11-05] MEDS ORDERED: methylPREDNISolone SOD 40 mg/ml 1 ml VIAL IV SCH (19:00)
== END 2021-11-05 11:25 | disposition expired | DRG 208 ==
LOC: EDHOLD 09:09 → ED 09:09 → SUATTDRO 11:57 → MED 14:50 → ICU 11-04 21:21
PROVIDERS: ADMIT Internal Medicine; ATTEND Internal Medicine